=== PATIENT | female | born 2000 | race Caucasian/White ===

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

== ENCOUNTER 2020-03-06 15:12 | Emergency (ER) | payer MEDICAID, SELFPAY ==
[2020-03-06 15:21] VITALS: BP 140/89; PULSE 101; RESP 19; TEMP 37.3; O2SAT 100; BMI 25.9
--- NOTE | 2020-03-06 15:54 | HMH.EDUTC ---
[facility] [place] Disposition Clinical Impression: Pharyngitis Qualifiers: Pharyngitis/tonsillitis etiology: unspecified etiology Qualified Code(s): J02.9 - Acute pharyngitis, unspecified Disposition: Home, Self-Care Condition on Discharge: Good Instructions: Sore Throat, DI for Pharyngitis/Tonsillopharyngitis -- Adult Additional Instructions: Drink plenty of fluids. Take tylenol or ibuprofen for pain or fever. Take the medications as directed. Follow up with your regular doctor. GO TO THE ER FOR ANY WORSENING SYMPTOMS Prescriptions: predniSONE [Deltasone 10mg tablet] 10 mg PO BID 3 Days #6 tab Transmission Status: Received by [facility] Azithromycin [Z-Naseem 250mg Tab*] 250 mg PO UD DOSE PK #6 tab Transmission Status: Received by [facility] Referrals: Michelle Nino PA [Primary Care Provider] - Forms: Work/School Release Time of Disposition: 15:55 Medical Decision Making - Medical Records Medical records reviewed: No: I reviewed the patient's medical records. - Bernardo Inquiry Pt receiving controlled substance: No Vital Signs: 03/06/20 15:21 03/06/20 15:59 Temperature 99.2 F 99.2 F Temperature Source Oral Pulse Rate 101 H Pulse Rate [Right Brachial] 101 H Respiratory Rate 19 19 Blood Pressure 140/89 Blood Pressure [Right Arm] 140/89 Blood Pressure Mean [Right Arm] 106 Blood Pressure Source [Right Arm] Automatic Cuff Blood Pressure Position [Right Arm] Sitting 02 Sat by Pulse Oximetry 100 Oxygen Delivery Method Room Air - Lab Data Lab results reviewed: Yes: I reviewed the patient's lab results. Lab Results 03/06/20 15:23: Strep Scn Rapid Clinic Negative Orders (Tests/Meds): ORDERS Category Date Time Status Covid-19 Nasal PCR Sendout Kale Stat Lab 03/06/20 15:48 Received Strep Screen Confirmation Stat Micro 03/06/20 15:23 Received [facility] [place] HPI - General Stated complaint: Sore throat, cough Time Seen by Provider: 03/06/20 15:30 Mode of Arrival: Ambulatory Source of Information: Patient Limitations: No Limitations Description of Symptoms (Recalled from Triage Doc. by RN): PATIENT C/O SORE THROAT AND COUGH SINCE FRIDAY HEENT Symptoms (Recalled from RN notes): Yes Resp Symptoms (Recalled from RN notes): Yes Skin Symptoms (Recalled from RN notes): No MS Symptoms (Recalled from RN notes): No Functional Status (Recalled from RN notes): WNL - History of Present Illness Provider Complaint: She c/o 3 days of sore throat. She denies any fever or chills. She denies any COVID-19 exposure that she knows of. - Related Data Previous Rx's Medication Instructions Recorded Azithromycin [Z-Naseem 250mg Tab*] 250 mg PO UD DOSE PK #6 tab 03/06/20 predniSONE [Deltasone 10mg tablet] 10 mg PO BID 3 Days #6 tab 03/06/20 Allergies Allergy/AdvReac Type Severity Reaction Status Date / Time No Known Allergies Allergy Verified 08/13/17 12:00 - Worker's Comp Is this a Worker's Comp case?: No [facility] History - Hepatitis A Screen Drug use history?: No High risk sexual behaviors?: No History of sexually transmitted infection?: No Currently employed?: No Childcare worker?: No Do you have indoor plumbing?: Yes Do you have electricity?: Yes Attestation statement:: This patient has been screened for Hepatitis A risk factors. I have reviewed the patient's past medical history: Yes Medical History: Denies:: Diabetes Mellitus Type 1, Diabetes Mellitus Type 2, Hypertension Other Surgeries: Yes: No Previous Surgery - Social History Smoking Status: Never smoker Alcohol Intake: never Occupational Status: other ROS Obtained: Yes All systems reviewed & no additional complaints - Constitutional Constitutional: Denies chills, Denies fever(s) - Eyes Eyes: Denies eye discharge - ENT Ears, Nose, Mouth, and Throat: Reports as per HPI - Cardiovascular Cardiovascular: Denies chest pain - Respiratory Respiratory: No chest congestion, No cough Physica
[2020-03-06 15:58] LABS: UTC Strep Screen (Rapid) Negative (Negative)
[2020-03-06 15:59] VITALS: BP 140/89; PULSE 101; RESP 19; TEMP 37.3; O2SAT 100
[2020-03-08 14:52] LABS: Covid-19 Nasal PCR Sendout Lex NOT DETECTED
== END 2020-03-06 16:02 | disposition home or self-care (01) ==
PROVIDERS: Emergency Provider Nurse Practitioner Family; PCP Physician Assistant
DX: J02.9 Acute pharyngitis, unspecified (principal); Z20.828 Contact with and (suspected) exposure to other viral communicable diseases
CPT/HCPCS: 87880; 99202; U0004

== ENCOUNTER → 2020-03-27 13:06 | Outpatient (POV) | payer MEDICAID, SELFPAY | PROVIDERS: Visit Provider Nurse Practitioner Family | DX: Z00.00 Encounter for general adult medical examination without abnormal findings (principal) ==

== ENCOUNTER → 2020-03-30 10:30 | Outpatient (CLI) | payer MEDICAID, SELFPAY ==
--- NOTE | 2020-03-30 10:34 | CT_ITS ---
PROCEDURE: CT ABDOMEN PELVIS W CON CLINICAL INDICATION: RECTAL BLEEDING, GENERALIZED ABD PAIN llq tenderness,rectal bleeding x 3 months COMPARISON: No exams were available for comparison TECHNIQUE: IV Contrast: 75ML OPTIRAY 350 Oral Contrast 450ml Redicat Axial images obtained with sagittal and coronal reformats. All CT scans at the facility use one or more dose reduction, viz: automated exposure control, ma/kV adjustment per patient size (including targeted exams where dose is matched to indication, i.e. head), or iterative reconstruction technique. FINDINGS: LOWER THORAX: There is a partially calcified nodule in the right lower lobe medially which may represent a granuloma. ABDOMEN & PELVIS: The liver, spleen, adrenal glands, pancreas, and kidneys have an unremarkable appearance. No intestinal obstruction or free air. No evidence of appendicitis. There is a right-sided pelvic mass which contains fat, soft tissue elements, and central calcification consistent with a ovarian dermoid cyst/mature cystic ovarian teratoma. This measures 8.8 cm AP and 4.3 cm transverse. The lesion is mostly fatty with soft tissue elements and a central calcific element. This is causing some shift of the uterus toward the left. No acute bony findings. IMPRESSION: 1. 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 2. Otherwise negative abdomen pelvis Dictated by: Koko Myers MD 03/31/2020 09:48 Koko Myers MD in OV 03/31/2020 09:48
== END ==
PROVIDERS: PCP Physician Assistant; Visit Provider Nurse Practitioner Family
DX: K62.5 Hemorrhage of anus and rectum (principal); R10.84 Generalized abdominal pain
CPT/HCPCS: 74177; Q9967

== ENCOUNTER → 2020-03-31 09:19 | Outpatient (CLI) | payer MEDICAID, SELFPAY ==
[2020-03-31 09:47] LABS: Basophils % 0.3 % (0.1-2.0); Eosinophils % 0.2 % (0.1-12.0); Hematocrit 39.5 % (37.0-47.0); Hemoglobin 13.7 g/dL (12.2-16.2); Lymphocytes # 1.3 K/mm3 (0.7-4.5); Lymphocytes % 12.5 % (10-50); Mean Corpuscular HGB Conc 34.7 g/dL (31.8-35.4); Mean Corpuscular Hemoglobin 32.3 pg (27.0-31.2); Mean Corpuscular Volume 93.2 fl (81-99); Mean Platelet Volume 7.9 fl (7.4-10.4); Monocytes # 0.5 K/mm3 (0.1-1.0); Monocytes % 4.9 % (1.7-9.3); Neutrophils # 8.8 K/mm3 (1.8-7.8); Neutrophils % 82.1 % (37.0-80.0); Platelet Count 224 K/mm3 (142-424); Red Blood Count 4.24 M/mm3 (4.20-5.40); Red Cell Distribution Width 12.9 % (11.5-17.5); White Blood Count 10.7 K/mm3 (4.5-13.0)
[2020-03-31 11:14] LABS: Chloride 104 mmol/L (98-107); Sodium 139 mmol/L (136-145)
[2020-03-31 11:15] LABS: Potassium 4.3 mmoL/L (3.5-5.1)
[2020-03-31 11:17] LABS: Alanine Aminotransferase 18 U/L (12-78); Albumin Level 4.5 g/dl (3.5-5.0); Alkaline Phosphatase 93 U/L (38-126); Anion Gap 16.3 mEq/L (5-15); Aspartate Amino Transferase 26 U/L (14-36); Bilirubin,Total 1.7 mg/dl (0.2-1.3); Blood Urea Nitrogen 5 mg/dl (7-17); Calcium 9.7 mg/dl (8.4-10.2); Carbon Dioxide 23 mmol/L (22.0-30.0); Estimated Glomerular Filt Rate 127 ml/min (>60); GFR (African American) 154 ML/MIN (>60); Glucose 149 mg/dl (74-100); Iron 108 ug/dL (37-170)
[2020-03-31 11:18] LABS: Albumin/Globulin Ratio 1.6 (1.1-1.8); Globulin 2.9 g/dL (1.3-3.2); Total Protein,Serum 7.4 g/dl (6.3-8.2)
[2020-03-31 11:24] LABS: C-Reactive Protein 1.1 mg/L (0-4)
[2020-03-31 11:27] LABS: Total Iron Binding Capacity 396 ug/dL (265-497)
[2020-03-31 11:55] LABS: Ferritin 23.1 ng/ml (6.24-137)
[2020-04-04 13:30] LABS: Saccharomyces cerevisiae, IgA 22.4 Units (0.0-24.9); Saccharomyces cerevisiae, IgG 26.5 Units (0.0-24.9)
== END ==
PROVIDERS: Visit Provider Nurse Practitioner Family
DX: R10.84 Generalized abdominal pain (principal); K62.5 Hemorrhage of anus and rectum
CPT/HCPCS: 36415; 80053; 82728; 83540; 83550; 85025; 86140; 86256; 86671

== ENCOUNTER → 2020-06-26 09:58 | Outpatient (POV) | payer MEDICAID, SELFPAY | PROVIDERS: Visit Provider Nurse Practitioner Family | DX: Z00.00 Encounter for general adult medical examination without abnormal findings (principal) ==

== ENCOUNTER 2020-07-14 22:43 | Emergency (ER) | payer BC, OTHER, SELFPAY ==
[2020-07-14 22:44] VITALS: BP 174/85; PULSE 111; RESP 16; TEMP 36.7; O2SAT 98; BMI 25.0
--- NOTE | 2020-07-14 23:11 | HMH.EDGENADL ---
[place] Disposition Clinical Impression: First trimester bleeding Disposition: Home, Self-Care Condition on Discharge: Good Referrals: Michelle Nino PA [Primary Care Provider] - - Critical Care Critical Care Time: No Attestation: On 07/14/20, the high probability of a clinically significant, sudden or life threatening deterioration of the following system(s) required my full and direct attention, intervention and personal management. The time I documented below is in addition to time spent performing reported procedures but includes the following listed in this critical care notation. Medical Decision Making - Medical Records Medical records reviewed: Yes: I reviewed the patient's medical records. - Bernardo Inquiry Pt receiving controlled substance: No Vital Signs: 07/14/20 22:44 Temperature 98.1 F Temperature Source Oral Pulse Rate [Left Radial] 111 H Respiratory Rate 16 Blood Pressure [Right Arm] 174/85 H Blood Pressure Mean [Right Arm] 114 Blood Pressure Source [Right Arm] Automatic Cuff Blood Pressure Position [Right Arm] Sitting 02 Sat by Pulse Oximetry 98 Oxygen Delivery Method Room Air - Lab Data Lab Results 07/14/20 23:10: WBC 9.9, RBC 4.29, Hgb 13.3, Hct 40.1, MCV 93.5, MCH 31.1, MCHC 33.3, RDW 12.8, Plt Count 227, MPV 9.4, Neut % (Auto) 64.3, Lymph % (Auto) 26.9, [place] % (Auto) 6.5, Eos % (Auto) 1.8, Baso % (Auto) 0.5, Neut # (Auto) 6.4, Lymph # (Auto) 2.7, [place] # (Auto) 0.6, Eos # (Auto) 0.2, Baso # (Auto) 0.0 07/14/20 23:10: Sodium 138, Potassium 3.8, Chloride 105, Carbon Dioxide 24, Anion Gap 12.8, BUN 6 L, Creatinine 0.60, Estimated Creat Clear 150, Estimated GFR 126, Est GFR ( Amer) 153, Glucose 115 H, Calcium 9.4 07/14/20 23:10: Blood Type A Positive, Antibody Screen Negative Result diagrams: 07/14/20 23:10 07/14/20 23:10 Orders (Tests/Meds): ORDERS Category Date Time Status Basic Metabolic Panel Stat Lab 07/14/20 23:10 Results HCG,Quantitative Stat Lab 07/14/20 23:10 Results Medical Decision Narrative: 20-year-old female presented with first trimester bleeding. She is in no acute distress nontoxic-appearing comfortable in the room. No concern for severe bleeding at this time. Bedside ultrasound was performed and crown-rump length was 6 weeks and 5 days and heart rate was visualized within the gestational sac.sac. Laboratory evaluation was ordered and plan to reassess. No high risk features for ectopic in the setting of visualized IUP. Follow-up at 12:15 AM. hematocrit normal electrolytes normal and she is B+. Stable hemodynamically in the emergency department plan to discharge with return precautions recommendation to call her [facility] next week to schedule their appointment. General Adult HPI - General Chief complaint: Vaginal Bleeding Stated complaint: vaginal bleeding 7 weeks pregant Time Seen by Provider: 07/14/20 22:43 Mode of Arrival: Ambulatory Limitations: No Limitations Description of Symptoms (Recalled from ER Triage Doc. by RN): pt stated she believes she is 7 weeks based on her last period and a positive test. pt reports scant vaginal bleeding that started about an hour ago. pt denies any abd. pain or cramping. - History of Present Illness HPI narrative: 20-year-old female primigravida presents with vaginal spotting that has now resolved. She has had no clotting or tissues that were passed. No dysuria or hematuria. No abdominal pain or cramping. No fever chills or back pain. No history of bleeding disorder. The spotting occurred today and she has not had any ultrasound this her scheduled appointment is in August. Onset (ago): hour(s) Radiation: non-radiation Consistency: now resolved Relieving factors: none Associated symptoms: negative: chest pain, cough, diaphoresis, fever/chills, headaches - Related Data Previous Rx's Medication Instructions Recorded Azithromycin [Z-Naseem 250mg Tab*] 25
[2020-07-14 23:20] LABS: Basophils % 0.5 % (0.1-2.0); Eosinophils # 0.2 K/mm3 (0.0-0.4); Eosinophils % 1.8 % (0.1-12.0); Hematocrit 40.1 % (37.0-47.0); Hemoglobin 13.3 g/dL (12.2-16.2); Lymphocytes # 2.7 K/mm3 (0.7-4.5); Lymphocytes % 26.9 % (10-50); Mean Corpuscular HGB Conc 33.3 g/dL (31.8-35.4); Mean Corpuscular Hemoglobin 31.1 pg (27.0-31.2); Mean Corpuscular Volume 93.5 fl (81-99); Mean Platelet Volume 9.4 fl (7.4-10.4); Monocytes # 0.6 K/mm3 (0.1-1.0); Monocytes % 6.5 % (1.7-9.3); Neutrophils # 6.4 K/mm3 (1.8-7.8); Neutrophils % 64.3 % (37.0-80.0); Platelet Count 227 K/mm3 (142-424); Red Blood Count 4.29 M/mm3 (4.20-5.40); Red Cell Distribution Width 12.8 % (11.5-17.5); White Blood Count 9.9 K/mm3 (4.8-10.8)
[2020-07-14 23:28] LABS: Chloride 105 mmol/L (98-107); Sodium 138 mmol/L (136-145)
[2020-07-14 23:29] LABS: Potassium 3.8 mmoL/L (3.5-5.1)
[2020-07-14 23:31] LABS: Blood Urea Nitrogen 6 mg/dl (7-17); Creatinine Clearance Estimated 150 mL/min (50-200); Estimated Glomerular Filt Rate 126 ml/min (>60); GFR (African American) 153 ML/MIN (>60)
[2020-07-14 23:32] LABS: Anion Gap 12.8 mEq/L (5-15); Calcium 9.4 mg/dl (8.4-10.2); Carbon Dioxide 24 mmol/L (22.0-30.0); Glucose 115 mg/dl (74-100)
[2020-07-15 00:18] VITALS: BP 112/73; PULSE 79; RESP 16; TEMP 36.6; O2SAT 98
[2020-07-15 00:26] LABS: HCG,Quantitative 54338 mIU/ml (0-5.42)
== END 2020-07-15 00:24 | disposition home or self-care (01) ==
PROVIDERS: Emergency Provider Emergency Medicine; PCP Physician Assistant
DX: O20.9 Hemorrhage in early pregnancy, unspecified (principal); Z3A.01 Less than 8 weeks gestation of pregnancy
CPT/HCPCS: 36415; 80048; 84702; 85025; 86850; 99282

== ENCOUNTER → 2021-11-05 13:52 | Outpatient (CLI) | payer OTHER, SELFPAY ==
[2021-11-05 14:06] LABS: Adenovirus F 40/41, stool Not Detected (NotDetected); Astrovirus Not Detected (NotDetected); Campylobacter Not Detected (NotDetected); Clostridium Difficile A/B, PCR Not Detected (NotDetected); Cryptosporidium Not Detected (NotDetected); Cyclospora Cayetanesis Not Detected (NotDetected); Entamoeba histolytica Not Detected (NotDetected); Enteroaggregative E coli Not Detected (NotDetected); Enteropathogenic E coli Not Detected (NotDetected); Enterotoxigenic E coli Not Detected (NotDetected); Giardia lamblia Not Detected (NotDetected); Norovirus Not Detected (NotDetected); Plesimonas Shigalloides, PCR Not Detected (NotDetected); Rotavirus A Not Detected (NotDetected); Salmonella, PCR Not Detected (NotDetected); Sapovirus Not Detected (NotDetected); Shiga-like toxin E coli Not Detected (NotDetected); Shigella Enterovasive E coli Not Detected (NotDetected); Vibrio Cholerae Not Detected (NotDetected); Vibrio, PCR Not Detected (NotDetected); Yersinia Entercolitica, PCR Not Detected (NotDetected)
== END ==
PROVIDERS: Visit Provider Nurse Practitioner Family
DX: R19.7 Diarrhea, unspecified (principal)
CPT/HCPCS: 87507

== ENCOUNTER 2022-01-03 06:44 | Emergency (ER) | payer BC, SELFPAY ==
[2022-01-03] VITALS (7 sets, daily range): BP systolic 108–142; BP diastolic 57–90; PULSE 90–124; RESP 16–18; TEMP 37.1–39.5; O2SAT 96–100; BMI 32.3
--- NOTE | 2022-01-03 07:08 | CT_ITS ---
FINAL REPORT CLINICAL HISTORY: RLQ PAIN COMPARISON: March 30, 2020 FINDINGS: CT OF THE ABDOMEN AND PELVIS WITH CONTRAST Axial CT images of the abdomen and pelvis were obtained after the administration of IV contrast. Coronal reformatted images were also obtained and reviewed.This study was performed with techniques to keep radiation doses as low as reasonably achievable (ALARA). Individualized dose reduction techniques using automated exposure control or adjustment of mA and/or kV according to the patient's size were employed. Abdomen: The there is a stable nodule in the medial right lung base with central calcification consistent with granuloma.. The heart is normal in size. The liver has an unremarkable appearance, without evidence of mass or biliary ductal dilatation. The spleen is unremarkable. No adrenal mass is present. The pancreas has an unremarkable appearance. There is a less than 3 mm nonobstructing left renal stone. The aorta is normal in caliber. There is no free fluid or adenopathy. There is wall thickening of the ascending colon with adjacent fat stranding and several small adjacent lymph nodes with an appearance consistent with ascending colitis. A small umbilical hernia is noted containing fat. Pelvis: The appendix normal The urinary bladder is unremarkable. There is presumed interval resolution of the right ovarian dermoid cyst, the mass is no longer visualized. There is a 3.1 cm left ovarian cyst. There is a small amount of pelvic free fluid, which may be physiologic or reactive. There are bilateral L5 pars defects noted. IMPRESSION: Findings in the colon consistent with ascending colitis. A 3.1 cm left ovarian cyst. Presumed interval resolution of right ovarian dermoid cyst. Reviewed, Interpreted and Dictated by Basil Amos III, MD Transcribed by Ethel Bowman Authenticated and [facility]
[2022-01-03 07:16] LABS: Coronavirus 19, PCR Not Detected (NotDetected); Influenza A, PCR Not Detected (NotDetected); Influenza B, PCR Not Detected (NotDetected)
[2022-01-03 07:22] LABS: Chloride 104 mmol/L (98-107); Potassium 3.4 mmoL/L (3.5-5.1); Sodium 136 mmol/L (136-145)
--- NOTE | 2022-01-03 07:23 | PC.NURSE ---
pt ambulatory from restroom without complications back to ED room 9
[2022-01-03 07:24] LABS: Amylase 50 U/L (30-110); Basophils # 0.2 K/mm3 (0-0.2); Basophils % 1.7 % (0.1-2.0); Blood Urea Nitrogen 2 mg/dl (7-17); Creatinine Clearance Estimated 160 mL/min (50-200); Eosinophils % 0.1 % (0.1-12.0); Estimated Glomerular Filt Rate 105 ml/min (>60); GFR (African American) 127 ML/MIN (>60); Hematocrit 42.7 % (37.0-47.0); Hemoglobin 13.8 g/dL (12.2-16.2); Lymphocytes # 0.5 K/mm3 (0.7-4.5); Lymphocytes % 4.5 % (10-50); Mean Corpuscular HGB Conc 32.4 g/dL (31.8-35.4); Mean Corpuscular Hemoglobin 29.4 pg (27.0-31.2); Mean Corpuscular Volume 90.9 fl (81-99); Mean Platelet Volume 8.9 fl (7.4-10.4); Monocytes # 0.6 K/mm3 (0.1-1.0); Neutrophils # 9.2 K/mm3 (1.8-7.8); Neutrophils % 87.6 % (37.0-80.0); Platelet Count 215 K/mm3 (142-424); Red Cell Distribution Width 14.1 % (11.5-17.5); White Blood Count 10.5 K/mm3 (4.8-10.8)
[2022-01-03 07:25] LABS: Alanine Aminotransferase 15 U/L (12-78); Albumin Level 4.1 g/dl (3.5-5.0); Albumin/Globulin Ratio 1.3 (1.1-1.8); Alkaline Phosphatase 103 U/L (38-126); Anion Gap 12.4 mEq/L (5-15); Aspartate Amino Transferase 27 U/L (14-36); Calcium 8.6 mg/dl (8.4-10.2); Carbon Dioxide 23 mmol/L (22.0-30.0); Globulin 3.2 g/dL (1.3-3.2); Glucose 131 mg/dl (74-100); Lipase 36 U/L (23-300); Total Protein,Serum 7.3 g/dl (6.3-8.2)
[2022-01-03 07:26] LABS: MANUAL DIFFERENTIAL MANUAL DIFFERENTIAL (MANUAL DIFF)
[2022-01-03 07:31] LABS: C-Reactive Protein 105.9 mg/L (0-4)
[2022-01-03 07:34] LABS: Microscopic, Urine URINE MICROSCOPIC (MICROSCOPIC)
[2022-01-03 07:36] LABS: Appearance,Urine CLOUDY (Clear); Blood, Urine 1+ (Negative); Color,Urine DK YELLOW (Yellow); Glucose,Urine (UA) Negative (Negative); Ketones,Urine Negative (Negative); Leukocyte Esterase,Urine 1+ (Negative); Nitrate,Urine Negative (Negative); Protein,Urine 2+ (Negative); Specific Gravity, Urine 1.025 (1.005-1.030); Urobilinogen,Urine 0.2 EU/dl (0.2)
[2022-01-03 07:38] LABS: Urine Pregnancy, HCG Qual. Negative (Negative)
[2022-01-03 07:41] LABS: Bilirubin,Urine Negative (Negative)
--- NOTE | 2022-01-03 07:45 | PC.NURSE ---
pt states feeling improved after pain meds and zofran given
[2022-01-03 07:54] LABS: Eosinophils % 1 % (0-3); Lymphocytes % 5 % (10-50); Monocytes % 7 % (2-9); Neutrophils % 87 % (42-76); Platelet Estimate Normal; RBC Morphology Normal; Total Cells Counted 100
--- NOTE | 2022-01-03 07:59 | HMH.EDNVD ---
ED Disposition Condition on Discharge: Good - Critical Care Critical Care Time: No <Deepak Payan - Last Filed: 01/03/22 08:30> Condition on Discharge: Good - Critical Care Critical Care Time: No <TonaRajinder - Last Filed: 01/03/22 09:19> Clinical Impression: Pyelonephritis, Colitis Disposition: Home, Self-Care Instructions: DI for Urinary Tract Infection (UTI), DI for Colitis Additional Instructions: follow up pcp next week, return here for worse Prescriptions: Dicyclomine HCl [Bentyl 10mg capsule] 10 mg PO QID PRN #15 cap PRN Reason: Cramping Transmission Status: Pending to [facility] metroNIDAZOLE [metroNIDAZOLE 500mg Tablet] 500 mg PO TID #30 tab Transmission Status: Pending to [facility] Cefdinir [Omnicef 300mg Capsule] 300 mg PO BID #20 cap Transmission Status: Pending to [facility] Ondansetron [Zofran 4mg ODT] 4 mg PO TIDP PRN #15 tab PRN Reason: Nausea And Vomiting Transmission Status: Pending to [facility] Referrals: Michelle Nino PA [Primary Care Provider] - Attestation: On 01/03/22, the high probability of a clinically significant, sudden or life threatening deterioration of the following system(s) required my full and direct attention, intervention and personal management. The time I documented below is in addition to time spent performing reported procedures but includes the following listed in this critical care notation. Medical Decision Making - Medical Records Medical records reviewed: Yes: I reviewed the patient's medical records. - Bernardo Sharpe Pt receiving controlled substance: No - Lab Data Lab results reviewed: Yes: I reviewed the patient's lab results. Result diagrams: 01/03/22 06:55 01/03/22 06:55 <Deepak Payan - Last Filed: 01/03/22 08:30> - Medical Records Medical records reviewed: Yes: I reviewed the patient's medical records. - Bernardo Sharpe Pt receiving controlled substance: No - Lab Data Result diagrams: 01/03/22 06:55 01/03/22 06:55 - Reevaluation(s) Time: 09:15 (reeval, appears well, vss, discussed resulkts, ok with plan to rx and f/u prn) <Rajinder Carbone - Last Filed: 01/03/22 09:19> Vital Signs: 01/03/22 06:46 01/03/22 07:30 01/03/22 08:00 Temperature 103.1 F H Temperature Source Oral Pulse Rate 110 H 101 H Pulse Rate [Left] 124 H Respiratory Rate 16 Blood Pressure 133/82 108/71 L Blood Pressure [Right Arm] 142/90 H Blood Pressure Mean 93 85 Blood Pressure Mean [Right Arm] 107 Blood Pressure Position 02 Sat by Pulse Oximetry 97 96 97 Oxygen Delivery Method Room Air Room Air 01/03/22 08:11 01/03/22 08:30 Temperature 98.7 F Temperature Source Oral Pulse Rate 98 H 100 H Pulse Rate [Left] Respiratory Rate Blood Pressure 108/57 L 109/73 L Blood Pressure [Right Arm] Blood Pressure Mean 85 Blood Pressure Mean [Right Arm] Blood Pressure Position Sitting 02 Sat by Pulse Oximetry 100 Oxygen Delivery Method Room Air - Lab Data Lab Results 01/03/22 06:55: WBC 10.5, RBC 4.70, Hgb 13.8, Hct 42.7, MCV 90.9, MCH 29.4, MCHC 32.4, RDW 14.1, Plt Count 215, MPV 8.9, Neut % (Auto) 87.6 H, Lymph % (Auto) 4.5 L, [place] % (Auto) 6.0, Eos % (Auto) 0.1, Baso % (Auto) 1.7, Neut # (Auto) 9.2 H, Lymph # (Auto) 0.5 L, [place] # (Auto) 0.6, Eos # (Auto) 0.0, Baso # (Auto) 0.2, Total Counted 100, Neutrophils % (Manual) 87 H, Lymphocytes % (Manual) 5 L, Monocytes % (Manual) 7, Eosinophils % (Manual) 1, Platelet Estimate Normal, RBC Morphology Normal, ESR 18 01/03/22 06:55: Sodium 136, Potassium 3.4 L, Chloride 104, Carbon Dioxide 23, Anion Gap 12.4, BUN 2 L, Creatinine 0.70, Estimated Creat Clear 160, Estimated GFR 105, Est GFR ( Amer) 127, Glucose 131 H, Calcium 8.6, Total Bilirubin 1.0, AST 27, ALT 15, Alkaline Phosphatase 103, C-Reactive Protein 105.9 H, Total Protein 7.3, Albumin 4.1, Globulin 3.2, Albumin/Globulin Ratio 1.3, Amylase 5
[2022-01-03 08:02] LABS: Erythrocyte Sedimentation Rate 18 mm/hr (0-20)
[2022-01-03 08:02] LABS: Bacteria,Urine 2+ /lpf; WBC,Urine 20-50 #/hpf (0-3)
[2022-01-03 08:03] LABS: Mucus,Urine Trace /lpf
[2022-01-03 08:04] LABS: Procalcitonin 0.207 ng/mL (0.0-2.0)
--- NOTE | 2022-01-03 08:30 | PC.NURSE ---
pt and family updated on plan of care. pt offers no c/o at present
--- NOTE | 2022-01-03 09:07 | PC.NURSE ---
pt and family updated on plan of care
--- NOTE | 2022-01-03 09:13 | PC.NURSE ---
ER MD at speaking with patient regarding update on POC
== END 2022-01-03 09:54 | disposition home or self-care (01) ==
PROVIDERS: Emergency Provider Emergency Medicine; PCP Physician Assistant
DX: R50.9 Fever, unspecified (principal); R10.84 Generalized abdominal pain; R11.2 Nausea with vomiting, unspecified; R19.7 Diarrhea, unspecified
CPT/HCPCS: 74177; 80053; 81001; 81025; 82150; 83605; 83690; 84145; 85007; 85025; 85651; 86140; 87040; 87086; 96365; 96366; 96375; 99284; C9803; J2405; Q9967; U0003; U0005

== ENCOUNTER → 2022-06-20 10:18 | Outpatient (CLI) | payer BC, SELFPAY | PROVIDERS: PCP Family Medicine; Visit Provider Family Medicine | DX: G47.30 Sleep apnea, unspecified (principal); R06.83 Snoring; R51.9 Headache, unspecified | CPT/HCPCS: G0399 ==

== ENCOUNTER 2022-06-25 14:08 | Emergency (ER) | payer BC, SELFPAY ==
[2022-06-25 14:08] VITALS: BP 143/96; PULSE 93; RESP 16; TEMP 36.7; O2SAT 98; BMI 30.1
[2022-06-25 14:30] VITALS: BP 131/87; PULSE 81; O2SAT 100
[2022-06-25 14:35] LABS: Microscopic, Urine URINE MICROSCOPIC (MICROSCOPIC)
[2022-06-25 14:43] LABS: Appearance,Urine CLOUDY (Clear); Bilirubin,Urine Negative (Negative); Blood, Urine 3+ (Negative); Color,Urine ORANGE (Yellow); Glucose,Urine (UA) Negative (Negative); Ketones,Urine Negative (Negative); Leukocyte Esterase,Urine 1+ (Negative); Nitrate,Urine Negative (Negative); Protein,Urine TRACE (Negative); Urobilinogen,Urine 0.2 EU/dl (0.2)
[2022-06-25 14:45] LABS: Urine Pregnancy, HCG Qual. Positive (Negative)
--- NOTE | 2022-06-25 15:03 | US_ITS ---
FINAL REPORT CLINICAL HISTORY: r/o ectopic, early , vaginal bleeding, lmp 05/27/22 FINDINGS: Transvaginal sonographic images of the pelvis were obtained. The uterus measures 8.8 x 5.6 x 3.9 cm. The endometrium measures 5 mm, which is within normal limits. There is a presumed small calcification in the endometrium. No uterine mass is identified. No intrauterine is identified. The left ovary measures up to 3.1 cm and contains small follicles. The right ovary is not visualized and reported surgically absent. IMPRESSION: No evidence of intrauterine . Findings may be due to failed . Ectopic cannot entirely be excluded. There are no specific findings of ectopic . Reviewed, Interpreted and Dictated by Basil Amos III, MD Transcribed by Maninder Wiley Authenticated and [facility]
[2022-06-25 15:10] LABS: RBC,Urine TNTC #/hpf (0-3)
--- NOTE | 2022-06-25 15:13 | HMH.EDGENADL ---
Discharge Plan Disposition Patient Disposition: Home, Self-Care Condition: Good Prescriptions Prescriptions: No Action prednisone 10 MG tablet 10 mg PO BID 3 Days Qty: 6 0RF azithromycin 250 MG tablet 250 mg PO UD DOSE PK Qty: 6 0RF Rx Instructions: Take two (2) tablets today, then one (1) tablet days #2 thru #5 ondansetron 4 MG tablet,disintegrating 4 mg PO TIDP PRN (Reason: Nausea And Vomiting) Qty: 15 0RF dicyclomine 10 MG capsule 10 mg PO QID PRN (Reason: Cramping) Qty: 15 0RF metronidazole 500 MG tablet 500 mg PO TID Qty: 30 0RF cefdinir 300 MG capsule 300 mg PO BID Qty: 20 0RF phenazopyridine [Pyridium] 200 mg tablet 200 mg PO Q8H 2 Days Qty: 6 0RF sulfamethoxazole-trimethoprim [Bactrim DS] 800-160 mg Tablet 1 tab PO BID Qty: 14 0RF ondansetron 4 mg Tablet,Disintegrating 4 mg PO Q8H PRN (Reason: Nausea) Qty: 12 0RF Referrals Follow up/Referrals: Michelle Nino PA [Primary Care Provider] - See instructions Activity Restrictions/Add. Instructions Additional Instructions/Restrictions: Return to the lab at [facility] in 2 days to have quantitative beta-hCG level drawn. Follow-up results with your CODER OPERATOR. Return to the emergency department if any severe pelvic pain or heavy vaginal bleeding. Urine culture has been performed, results generally take 2 to 3 days. Follow-up the results of this test with your primary care provider within 2 to 3 days. Clinical Impressions Clinical Impression: Bleeding in early Instructions Patient Instructions: DI for Threatened Discharge ED Provider: Wallace Connor General Adult HPI General Chief complaint: Vaginal Bleeding Stated complaint: 4 weeks antepartum, bleeding Time Seen by Provider: 06/25/22 14:33 Mode of Arrival: Ambulatory Source of Information: Patient and Spouse Limitations: No Limitations Description of Symptoms (Recalled from ER Triage Doc. by RN): Pt reports was advised by her [employer] intern to come and be evaluated to make sure does not have an ectopic because she only has 1 ovary. Pt reports had a positive home today. Pt reports LMP May 27. pt denies abd/pelvic pain or cramping. Pt reports did start having vaginal spotting on saturday of last week, pt reports is basically not there today. History of Present Illness HPI narrative: Patient states she is and has 4-day history of some vaginal bleeding. Bleeding has been light, spotting. She denies any pain. She is 2, para 1. She has had her right ovary removed because of a large cyst 1 year ago. She contacted her CODER OPERATOR who advised her to come in to have an ectopic ruled out. No prior history of miscarriage or ectopic . Last menstrual period May 27. Related Data Previous Rx's Medication Instructions Recorded azithromycin 250 mg tablet 250 mg PO UD DOSE PK #6 tabs 03/06/20 prednisone 10 mg tablet 10 mg PO BID 3 days #6 tabs 03/06/20 cefdinir 300 mg capsule 300 mg PO BID #20 caps 01/03/22 dicyclomine 10 mg capsule 10 mg PO QID PRN Cramping #15 caps 01/03/22 metronidazole 500 mg tablet 500 mg PO TID #30 tabs 01/03/22 ondansetron 4 mg disintegrating 4 mg PO TIDP PRN Nausea And 01/03/22 tablet Vomiting #15 tabs ondansetron 4 mg disintegrating 4 mg PO Q8H PRN Nausea #12 tabs 06/16/22 tablet phenazopyridine 200 mg tablet 200 mg PO Q8H 2 days #6 tabs 06/16/22 (Pyridium) sulfamethoxazole 800 1 tab PO BID #14 tabs 06/16/22 mg-trimethoprim 160 mg tablet (Bactrim DS) Allergies Allergy/AdvReac Type Severity Reaction Status Date / Time No Known Allergies Allergy Verified 08/13/17 12:00 [facility] Disclaimer: The information contained in this section may have been updated after the patient was seen, as this information can be updated by other users. Social History Smoking Status: Never smoker alcohol intake: never current occupational st
[2022-06-25 15:27] LABS: Basophils # 0.1 K/mm3 (0-0.2); Basophils % 0.9 % (0.1-2.0); Eosinophils # 0.1 K/mm3 (0.0-0.4); Eosinophils % 1.3 % (0.1-12.0); Hematocrit 40.5 % (37.0-47.0); Lymphocytes # 1.7 K/mm3 (0.7-4.5); Lymphocytes % 28.8 % (10-50); Mean Corpuscular HGB Conc 32.2 g/dL (31.8-35.4); Mean Corpuscular Hemoglobin 28.9 pg (27.0-31.2); Mean Corpuscular Volume 89.8 fl (81-99); Mean Platelet Volume 8.4 fl (7.4-10.4); Monocytes # 0.4 K/mm3 (0.1-1.0); Monocytes % 6.4 % (1.7-9.3); Neutrophils # 3.7 K/mm3 (1.8-7.8); Neutrophils % 62.6 % (37.0-80.0); Platelet Count 293 K/mm3 (142-424); Red Blood Count 4.51 M/mm3 (4.20-5.40); Red Cell Distribution Width 14.2 % (11.5-17.5); White Blood Count 5.9 K/mm3 (4.8-10.8)
[2022-06-25 15:47] LABS: HCG,Quantitative 25 mIU/ml (0-5.42)
[2022-06-25 16:43] VITALS: BP 125/78; PULSE 87; RESP 20; TEMP 36.9; O2SAT 97
== END 2022-06-25 16:44 | disposition home or self-care (01) ==
PROVIDERS: Emergency Provider Emergency Medicine; PCP Physician Assistant
DX: O20.9 Hemorrhage in early pregnancy, unspecified (principal); Z3A.01 Less than 8 weeks gestation of pregnancy; Z90.721 Acquired absence of ovaries, unilateral
CPT/HCPCS: 76830; 81001; 81025; 84702; 85025; 87086; 99284

== ENCOUNTER → 2022-06-27 14:40 | Outpatient (CLI) | payer BC, SELFPAY ==
[2022-06-27 16:08] LABS: Alanine Aminotransferase 13 U/L (12-78); Albumin Level 4.7 g/dl (3.5-5.0); Albumin/Globulin Ratio 1.6 (1.1-1.8); Alkaline Phosphatase 132 U/L (38-126); Anion Gap 15.2 mEq/L (5-15); Aspartate Amino Transferase 24 U/L (14-36); Bilirubin,Total 0.6 mg/dl (0.2-1.3); Blood Urea Nitrogen 5 mg/dl (7-17); Calcium 9.8 mg/dl (8.4-10.2); Carbon Dioxide 24 mmol/L (22.0-30.0); Chloride 106 mmol/L (98-107); Estimated Glomerular Filt Rate 89 ml/min (>60); GFR (African American) 108 ML/MIN (>60); Globulin 2.9 g/dL (1.3-3.2); Glucose 95 mg/dl (74-100); Potassium 4.2 mmoL/L (3.5-5.1); Sodium 141 mmol/L (136-145); Total Protein,Serum 7.6 g/dl (6.3-8.2)
[2022-06-27 16:13] LABS: HCG,Quantitative 62 mIU/ml (0-5.42)
[2022-06-27 17:01] LABS: Iron 48 ug/dL (37-170)
[2022-06-27 17:55] LABS: Thyroid Stimulating Hormone 2.06 uIU/mL (0.465-4.68)
== END ==
PROVIDERS: PCP Family Medicine; Visit Provider Emergency Medicine
DX: O26.851 Spotting complicating pregnancy, first trimester (principal); E61.1 Iron deficiency; R40.0 Somnolence
CPT/HCPCS: 36415; 80053; 83540; 84443; 84702

== ENCOUNTER → 2022-07-01 14:56 | Outpatient (CLI) | payer BC, SELFPAY ==
[2022-07-01 17:07] LABS: HCG,Quantitative 5 mIU/ml (0-5.42)
[2022-07-03 10:20] LABS: Progesterone 0.4 ng/mL (.)
== END ==
PROVIDERS: PCP Family Medicine; Visit Provider Obstetrics & Gynecology
DX: Z32.01 Encounter for pregnancy test, result positive (principal)
CPT/HCPCS: 36415; 84144; 84702

== ENCOUNTER → 2022-08-08 11:55 | Outpatient (CLI) | payer BC, SELFPAY ==
[2022-08-08 16:25] LABS: Microscopic, Urine URINE MICROSCOPIC (MICROSCOPIC)
[2022-08-08 16:44] LABS: Appearance,Urine CLEAR (Clear); Bilirubin,Urine Negative (Negative); Blood, Urine TRACE-L (Negative); Color,Urine YELLOW (Yellow); Glucose,Urine (UA) Negative (Negative); Ketones,Urine Negative (Negative); Leukocyte Esterase,Urine 2+ (Negative); Nitrate,Urine Negative (Negative); Protein,Urine TRACE (Negative); Specific Gravity, Urine >= 1.030 (1.005-1.030); Urobilinogen,Urine 0.2 EU/dl (0.2)
[2022-08-08 17:23] LABS: Bacteria,Urine 1+ /lpf; RBC,Urine Occasional #/hpf (0-3)
== END ==
PROVIDERS: PCP Family Medicine; Visit Provider Nurse Practitioner
DX: N39.0 Urinary tract infection, site not specified (principal)
CPT/HCPCS: 81001; 87086

== ENCOUNTER → 2022-10-09 15:40 | Outpatient (CLI) | payer OTHER, SELFPAY | PROVIDERS: PCP Physician Assistant; Visit Provider Obstetrics & Gynecology | DX: R30.0 Dysuria (principal) | CPT/HCPCS: 87086 ==

== ENCOUNTER 2022-10-14 11:02 | Emergency (ER) | payer OTHER, SELFPAY ==
[2022-10-14 11:02] VITALS: BP 143/84; PULSE 83; RESP 17; TEMP 36.4; O2SAT 98; BMI 32.0
--- NOTE | 2022-10-14 11:35 | HMH.EDGENADL ---
Discharge Plan Disposition Chief Complaint: Upper Respiratory Infection Prescriptions Prescriptions: New cephalexin 500 mg capsule 500 mg PO QID 7 Days Qty: 28 0RF No Action amoxicillin 875 mg tablet 875 mg PO BID 7 Days Qty: 14 0RF pseudoephedrine HCl [Sudafed] 30 mg tablet 30 mg PO Q4-6H PRN (Reason: nasal congestion) Qty: 14 0RF Rx Instructions: DNExceed 4 doses/24h ofloxacin 0.3 % drops See Rx Instructions .ROUTE .COMPLEX Qty: 5 0RF Rx Instructions: put 2 drps into affected eye(s) every 2 h x 2 days, then 1 drp 4 times/day days 3-7 Referrals Follow up/Referrals: Michelle Nino PA [Primary Care Provider] - See instructions Clinical Impressions Clinical Impression: Dehydration during , Urinary tract infection affecting Discharge ED Provider: Aden Geiger General Adult HPI General Chief complaint: Upper Respiratory Infection Stated complaint: UTI-POSSIBLE DEHRYATION-12WEEKS PREG Time Seen by Provider: 10/14/22 11:41 Mode of Arrival: Ambulatory Source of Information: Patient Limitations: No Limitations Description of Symptoms (Recalled from ER Triage Doc. by RN): pt to ED 12 weeks with headache, nausea, cough, congestion and reports feeling run down . pt denies any abd. pain, vaginal bleeding, vomiting or diarrhea at this time. History of Present Illness HPI narrative: Patient is a 22-year-old G3, presents today with feeling lightheaded and profoundly weak. She states that she has had some significant nausea vomiting during this which resulted in another ED visit back in August requiring IV fluids. States she feels similar today. She has had a mild cough for the last week but that is not bothering her today. She also has had a mild headache but she took Tylenol prior to arrival today and states her headache is gone. Also has Zofran at home and states that her nausea is currently under control. So she is primarily just here for weakness and lightheadedness. States her mouth has been dry and extremities cool. No significant abdominal pain no loss of fluid no cramping no vaginal bleeding she does states she has some urinary frequency and carries frequent UTIs and may have a urinary tract infection today. Related Data Previous Rx's Medication Instructions Recorded amoxicillin 875 mg tablet 875 mg PO BID 7 days #14 tabs 07/19/22 pseudoephedrine HCl 30 mg tablet 30 mg PO Q4-6H PRN nasal 07/19/22 (Sudafed) congestion #14 tabs ofloxacin 0.3 % eye drops See Rx Instructions ophthalmic 09/03/22 (eye) .COMPLEX #5 mL cephalexin 500 mg capsule 500 mg PO QID 7 days #28 caps 10/14/22 Allergies Allergy/AdvReac Type Severity Reaction Status Date / Time butorphanol [From Stadol] Allergy shortness Verified 07/23/22 11:49 of breath PFSH [facility] Disclaimer: The information contained in this section may have been updated after the patient was seen, as this information can be updated by other users. Surgical History (Updated 07/19/22 @ 10:28 by Pricila Donnelly LPN) History of right oophorectomy Family History (Updated 07/19/22 @ 10:29 by Pricila Donnelly LPN) Grandmother Cancer Stroke Grandfather Cancer Stroke Father Hypertension Diabetes Social History (Updated 07/19/22 @ 10:30 by Pricila Donnelly LPN) Smoking Status: Never smoker alcohol intake: current substance use type: denies use current occupational status: employed Travel in the last 8 weeks: None household members: spouse, family and children housing: house ROS Obtained: Yes All systems reviewed & no additional complaints except as documented Physical Exam General General appearance: alert and in no apparent distress Respiratory Respiratory exam: Present normal lung sounds bilaterally Cardiovascular Cardiovascular exam: Present regular rate and other (Dry mucous membranes delayed capillary refill cool extremities) Abdominal Exam Abdo
[2022-10-14 11:45] LABS: Microscopic, Urine URINE MICROSCOPIC (MICROSCOPIC)
[2022-10-14 11:48] LABS: Appearance,Urine CLEAR (Clear); Bilirubin,Urine Negative (Negative); Blood, Urine Negative (Negative); Color,Urine YELLOW (Yellow); Glucose,Urine (UA) Negative (Negative); Ketones,Urine Negative (Negative); Leukocyte Esterase,Urine 2+ (Negative); Nitrate,Urine Negative (Negative); Protein,Urine Negative (Negative); Urobilinogen,Urine 0.2 EU/dl (0.2)
[2022-10-14 11:49] LABS: Chloride 103 mmol/L (98-107)
[2022-10-14 11:49] LABS: Coronavirus 19, PCR Not Detected (NotDetected); Influenza A, PCR Not Detected (NotDetected); Influenza B, PCR Not Detected (NotDetected)
[2022-10-14 11:50] LABS: Potassium 3.6 mmoL/L (3.5-5.1); Sodium 134 mmol/L (136-145)
[2022-10-14 11:52] LABS: Alanine Aminotransferase 13 U/L (12-78); Alkaline Phosphatase 107 U/L (38-126); Aspartate Amino Transferase 22 U/L (14-36); Bilirubin,Total 0.6 mg/dl (0.2-1.3); Blood Urea Nitrogen 7 mg/dl (7-17); Creatinine Clearance Estimated 157 mL/min (50-200); Estimated Glomerular Filt Rate 104 ml/min (>60); GFR (African American) 125 ML/MIN (>60)
[2022-10-14 11:53] LABS: Albumin Level 4.2 g/dl (3.5-5.0); Albumin/Globulin Ratio 1.3 (1.1-1.8); Anion Gap 11.6 mEq/L (5-15); Calcium 8.7 mg/dl (8.4-10.2); Carbon Dioxide 23 mmol/L (22.0-30.0); Globulin 3.2 g/dL (1.3-3.2); Glucose 93 mg/dl (74-100); Total Protein,Serum 7.4 g/dl (6.3-8.2)
--- NOTE | 2022-10-14 11:56 | ECG_ITS ---
APPROVED REPORT Exam: Resting ECG HR:81 bpm ECG Measurements Heart Rate 81 AXES ND 132 P 54 QRSd 82 QRS 71 QT 362 T 62 QTc 399 Conclusion SINUS RHYTHM WITH SINUS ARRHYTHMIA LOW QRS VOLTAGE IN PRECORDIAL LEADS [QRS DEFLECTION < 1.0 mV IN CHEST LEADS] BORDERLINE ECG UNCONFIRMED REPORT Electronically signed by : Cal Gieger MD 10/14/2022 19:45:46
[2022-10-14 12:07] LABS: Bacteria,Urine 1+ /lpf
[2022-10-14 13:21] VITALS: BP 121/73; PULSE 80; O2SAT 100
[2022-10-14 13:30] VITALS: BP 118/68; PULSE 78; O2SAT 100
[2022-10-14 14:02] VITALS: BP 111/74; PULSE 82; RESP 18; TEMP 36.7
== END 2022-10-14 14:04 | disposition home or self-care (01) ==
PROVIDERS: Emergency Provider Student in an Organized Health Care Education/Training Program; PCP Physician Assistant
DX: O23.41 Unspecified infection of urinary tract in pregnancy, first trimester (principal); O99.281 Endocrine, nutritional and metabolic diseases complicating pregnancy, first trimester; E86.0 Dehydration; Z3A.12 12 weeks gestation of pregnancy
CPT/HCPCS: 80053; 81001; 87086; 93005; 96360; 99284; 99285; C9803; U0003; U0005

== ENCOUNTER 2023-07-03 10:00 | Emergency (ER) | payer OTHER, SELFPAY ==
[2023-07-03 10:00] VITALS: BP 149/78; PULSE 85; RESP 16; TEMP 36.4; O2SAT 98; BMI 34.4
--- NOTE | 2023-07-03 10:01 | ECG_ITS ---
APPROVED REPORT Exam: Resting ECG HR:89 bpm ECG Measurements Heart Rate 89 AXES FL 125 P 73 QRSd 82 QRS 92 QT 329 T 82 QTc 376 Conclusion SINUS RHYTHM WITH SINUS ARRHYTHMIA BORDERLINE RIGHT AXIS DEVIATION [QRS AXIS > 90] BORDERLINE ECG UNCONFIRMED REPORT Electronically signed by : Cal Geiger MD 07/09/2023 09:11:49
--- NOTE | 2023-07-03 10:15 | XR_ITS ---
FINAL REPORT CLINICAL HISTORY: Shortness of breath COMPARISON: None FINDINGS: The heart size is normal. The mediastinum is normal. There is no focal infiltrate or edema. There are no pleural effusions. There is no pneumothorax. There is no osseous abnormality. IMPRESSION: No acute cardiopulmonary process Reviewed, Interpreted and Dictated by Rob Mays MD Transcribed by Ethel Bowman Authenticated and . [facility]
--- NOTE | 2023-07-03 10:16 | HMH.EDCP ---
Discharge Plan Disposition Patient Disposition: Home, Self-Care Prescriptions Prescriptions: No Action sertraline [Zoloft] 25 mg tablet 25 mg PO DAILY Qty: 30 2RF Activity Restrictions/Add. Instructions Additional Instructions/Restrictions: No acute cardiopulmonary emergency identified today. Please follow-up with your primary care doctor if you have persistent symptoms otherwise you may take Tylenol and ibuprofen as needed for your discomfort. You may return to the emergency department any point if you are also concerned. Clinical Impressions Clinical Impression: Chest pain Discharge ED Provider: Aden Geiger General Chief Complaint: Chest Pain Stated Complaint: chest pain Time Seen by Provider: 07/03/23 10:07 Mode of Arrival: Ambulatory Source of Information: Patient Limitations: No Limitations Description of Symptoms (Recalled from ER Triage Doc. by RN): pt to the ED with left sided chest pain that radiates from her midsternum to behind her left shoulder blade. pt reports her pain is a pressure sensation and rates it a 5 at this time. pt reports it started last night and she took some tums with no relief. History of Present Illness HPI narrative: Patient is a 23-year-old female presenting with chest pain. States that it feels like a muscle strain but denies any specific mechanism to have strained her muscles. States its located in the mid substernal region in the left subscapular region worsening with movement and touch. She does states she lifts her children but otherwise has no specific mechanism as stated above. No exertional component to this she is not nauseated or dyspneic no pleuritic aspect of this no cough fevers chills hemoptysis lower extremity swelling history of DVT or PE however she is on hormonal contraception. Related Data Previous Rx's Medication Instructions Recorded sertraline 25 mg tablet (Zoloft) 25 mg PO DAILY #30 tabs 10/22/22 Allergies Allergy/AdvReac Type Severity Reaction Status Date / Time butorphanol [From Stadol] Allergy shortness Verified 10/22/22 11:29 of breath [facility] Disclaimer: The information contained in this section may have been updated after the patient was seen, as this information can be updated by other users. Medical History (Updated 07/03/23 @ 10:20 by Aden Geiger MD) Major depressive disorder Surgical History (Updated 07/19/22 @ 10:28 by Pricila Donnelly LPN) History of right oophorectomy Family History (Updated 07/19/22 @ 10:29 by Pricila Donnelly LPN) Grandmother Cancer Stroke Grandfather Cancer Stroke Father Hypertension Diabetes Social History (Updated 10/22/22 @ 11:39 by Valerie Mittal APRN) Smoking Status: Never smoker second hand exposure: No alcohol intake: current counseling given: No (no drinking right now; cause she is ) substance use type: denies use counseling given: No current occupational status: employed Travel in the last 8 weeks: None adopted: No caregiver/support person: Yes (for her 19 month old son) foster care: No household members: spouse, family and children housing: house lives independently: Yes marital status: number of children: 1 number of grandchildren: 0 education level: high school 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
[2023-07-03 10:31] VITALS: BP 119/73; PULSE 85; O2SAT 100
[2023-07-03 10:34] LABS: Basophils % 0.5 % (0.1-2.0); Eosinophils % 0.3 % (0.1-12.0); Hematocrit 40.5 % (37.0-47.0); Hemoglobin 13.9 g/dL (12.2-16.2); Lymphocytes # 1.9 K/mm3 (0.7-4.5); Lymphocytes % 30.5 % (10-50); Mean Corpuscular HGB Conc 34.3 g/dL (31.8-35.4); Mean Corpuscular Hemoglobin 29.7 pg (27.0-31.2); Mean Corpuscular Volume 86.7 fl (81-99); Mean Platelet Volume 8.3 fl (7.4-10.4); Monocytes # 0.4 K/mm3 (0.1-1.0); Neutrophils # 3.9 K/mm3 (1.8-7.8); Neutrophils % 62.7 % (37.0-80.0); Platelet Count 233 K/mm3 (142-424); Red Blood Count 4.67 M/mm3 (4.20-5.40); Red Cell Distribution Width 15.5 % (11.5-17.5); White Blood Count 6.2 K/mm3 (4.8-10.8)
[2023-07-03 10:36] LABS: Alanine Aminotransferase 21 U/L (12-78); Albumin Level 4.3 g/dl (3.5-5.0); Albumin/Globulin Ratio 1.3 (1.1-1.8); Alkaline Phosphatase 117 U/L (38-126); Anion Gap 11.7 mEq/L (5-15); Aspartate Amino Transferase 31 U/L (14-36); Bilirubin,Total 0.7 mg/dl (0.2-1.3); Blood Urea Nitrogen 8 mg/dl (7-17); Carbon Dioxide 23 mmol/L (22.0-30.0); Chloride 107 mmol/L (98-107); Creatinine Clearance Estimated 130 mL/min (50-200); Estimated Glomerular Filt Rate 77 ml/min (>60); GFR (African American) 93 ML/MIN (>60); Globulin 3.3 g/dL (1.3-3.2); Glucose 99 mg/dl (74-100); Lipase 112 U/L (23-300); Potassium 3.7 mmoL/L (3.5-5.1); Sodium 138 mmol/L (136-145); Total Protein,Serum 7.6 g/dl (6.3-8.2)
[2023-07-03 10:49] LABS: Troponin I < 0.01 ng/ml (0.00-0.034)
--- NOTE | 2023-07-03 10:56 | PC.NURSE ---
rad at bedside
[2023-07-03 10:57] LABS: D-Dimer 0.62 ug/mL (0.0-0.5)
[2023-07-03 11:00] VITALS: BP 112/81; PULSE 88; O2SAT 99
[2023-07-03 11:31] VITALS: BP 130/83; PULSE 80; RESP 18; TEMP 36.7; O2SAT 98
== END 2023-07-03 11:37 | disposition home or self-care (01) ==
PROVIDERS: Emergency Provider Student in an Organized Health Care Education/Training Program; PCP Physician Assistant
DX: R07.9 Chest pain, unspecified (principal)
CPT/HCPCS: 71045; 80053; 83690; 84484; 85025; 85378; 93005; 96374; 99284

== ENCOUNTER 2023-07-22 09:17 | Outpatient (CLI) | payer OTHER, SELFPAY ==
--- NOTE | 2023-07-22 09:22 | US_ITS ---
FINAL REPORT CLINICAL HISTORY: RUQ PAIN COMPARISON: None FINDINGS: Sonographic images of the right upper quadrant were obtained. The pancreas is partially obscured.The liver has an unremarkable appearance.The gallbladder appears normal without evidence of gallstones.There is no evidence of biliary ductal dilatation.The common duct measures 5 mm. Limited images of the right kidney are unremarkable. IMPRESSION: Unremarkable right upper quadrant ultrasound. Reviewed, Interpreted and Dictated by Basil Amos III, MD Transcribed by Priya Kapoor Authenticated and [facility]
== END 2023-07-22 23:59 ==
LOC: RAD 09:17
PROVIDERS: PCP Physician Assistant; Visit Provider Physician Assistant
DX: R10.11 Right upper quadrant pain (principal)
CPT/HCPCS: 76705

== ENCOUNTER 2023-08-06 09:28 | Outpatient (CLI) | payer OTHER, SELFPAY ==
--- NOTE | 2023-08-06 09:31 | NM_ITS ---
FINAL REPORT CLINICAL HISTORY: RT UPPER QUAD PAIN 9:40am 8.80 mci tc choletec 1.7 mcg of cck moderate pain during cck COMPARISON: None FINDINGS: The patient was injected with 8.80 mCi of technetium 99m Choletec and subsequently 1.7 mcg of CCK. Images of the abdomen were obtained for one hour. There is normal distribution of radiopharmaceutical throughout the liver. Sequential images demonstrate progressive accumulation of activity within the gallbladder. There is a calculated ejection fraction of 49 %, which is borderline abnormal. IMPRESSION: Borderline abnormal ejection fraction. Reviewed, Interpreted and Dictated by Rob Mays MD Transcribed by Ethel Bowman Authenticated and . [facility]
[2023-08-06] MEDS: ISOTOPE CHOLETECH;1 DOSE (UP TO 15 MCI) IV (11:06)
[2023-08-06] MEDS: SINCALIDE 1.7 MCG in 0.9 % SODIUM CHLORIDE 50 ML 100 MCG IV (11:06)
[2023-08-06] MEDS: SODIUM CHLORIDE 0.9% 10ML SYR (RAD ONLY) 10 ML IV (11:06)
== END 2023-08-06 23:59 ==
LOC: RAD 09:28
PROVIDERS: PCP Physician Assistant; Visit Provider Physician Assistant
DX: R10.11 Right upper quadrant pain (principal)
CPT/HCPCS: 78227; A9537; J2805

== ENCOUNTER 2023-09-04 08:36 | Emergency (ER) | payer OTHER, SELFPAY ==
[2023-09-04 09:25] VITALS: BP 113/86; PULSE 105; RESP 19; TEMP 37.5; O2SAT 98; BMI 31.6
[2023-09-04 09:38] LABS: UTC Influenza A Antigen Positive (Negative)
[2023-09-04 09:39] LABS: UTC Influenza B Antigen Negative (Negative)
--- NOTE | 2023-09-04 09:52 | ED_ITS ---
Discharge Plan Disposition Patient Disposition: Home, Self-Care Condition: Good Prescriptions Prescriptions: New oseltamivir [Tamiflu] 75 mg capsule 75 mg PO Q12H 5 Days Qty: 10 0RF No Action norelgestromin-ethin.estradiol [Zafemy] 150-35 mcg/24 hr patch weekly 1 patch topical Referrals Follow up/Referrals: Michelle Nino PA [Primary Care Provider] - See instructions Activity Restrictions/Add. Instructions Additional Instructions/Restrictions: * Start Tamiflu today if you are going to take it. Discussed risk and possible benefits. * Lots of rest * Increase Fluids water, Gatorade, powerade, pedialyte,if /toddler/child * Alternate Tylenol and / or ibuprofen as discussed for fever, aches, chil ls Follow up IMMEDIATELY with your family doctor for new or worsening Symptoms OR no noticeable improvement over the next 48-72 hours, 911 for difficulty or breathing * You or your child area contagious until no fever, aches, chills for 24 hours with medication for symptoms * Help Prevent the spread of influenza: * ?Wash your hands often. Use soap and water. Wash your hands after you use the bathroom, change a child's diapers, or sneeze. Wash your hands before you prepare or eat food. Use gel hand cleanser that has 60% alcohol, when soap and water are not available. Do not touch your eyes, nose, or mouth unless you have washed your hands first. * Cover your mouth when you sneeze or cough. Cough into a tissue or the bend of your arm. If you use a tissue, throw it away immediately and wash your hands. * Clean shared items with a germ-killing barrel cleaner. Clean table surfaces, doorknobs, and light switches. Do not share towels, silverware, and dishes with people who are sick. Wash bed sheets, towels, silverware, and dishes with soap and water. * Wear a mask over your mouth and nose if you are sick. The face mask may help protect others from becoming infected with the flu. Wear the mask when in common areas of your home or if you seek care with a healthcare provider. * Stay away from others if you are sick. Stay at home until 24 hours after your fever and symptoms are gone. Clinical Impressions Clinical Impression: Influenza Stand Alone Forms Stand Alone Forms: Work/School Release Instructions Patient Instructions: DI for Influenza -- Adult, Oseltamivir Discharge ED Provider: Maricarmen Fountain [facility] HPI General Stated complaint: fever, congestion,headache Mode of Arrival: Ambulatory Source of Information: Patient Limitations: No Limitations Time Seen by Provider: 09/04/23 09:52 Description of Symptoms (Recalled from Triage Doc. by RN): PATIENT C/O CONGESTION, HEADACHE, AND CHILLS SINCE LAST NIGHT HEENT Symptoms (Recalled from RN notes): Yes Resp Symptoms (Recalled from RN notes): No Skin Symptoms (Recalled from RN notes): No MS Symptoms (Recalled from RN notes): No Functional Status (Recalled from RN notes): WNL History of Present Illness Provider Complaint: Patient states that he children have been sick and states that she started feeling bad last night with body aches, chills, nasal congestion and headache states that she feels like she may have flu so she came down to get checked Related Data Home Medications Medication Instructions Recorded Confirmed norelgestromin 150 mcg-e.estradiol 1 patch topical 08/26/23 08/26/23 35 mcg/24 hr weekly transderm patch (Zafemy) Previous Rx's Medication Instructions Recorded oseltamivir 75 mg capsule (Tamiflu) 75 mg PO Q12H 5 days #10 caps 09/04/23 Allergies Allergy/AdvReac Type Severity Reaction Status Date / Time butorphanol [From Stadol] Allergy shortness Verified 08/26/23 09:11 of breath Worker's Comp Is this a Worker's Comp case?: No [facility] Disclaimer: The information contained in this section may have been updated after the patient was seen, as this information can be updated by other users. Medical History Major depressive disorder Surgical History History of right oophorectomy Family History Grandmother Cancer Stroke Grandfather Cancer Stroke Father Hypertension Diabetes Social History Smoking Status: Never smoker second hand exposure: No alcohol intake: current counseling given: No (no drinking right now; cause she is ) substance use type: denies use counseling given: No current occupational status: employed Travel in the last 8 weeks: None adopted: No caregiver/support person: Yes (for her 19 month old son) foster care: No household members: spouse, family and children housing: house lives independently: Yes marital status: number of children: 1 number of grandchildren: 0 education level: high school 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[employer]; 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 Hx Recent Travel: No sexually active: Yes are you practicing safe sex: Yes caffeine: Yes physical activity: none austin/jew: None special austin needs: No working smoke detector in home: Yes fire extinguisher in home: No carbon monox detector in home: No firearms in home: Yes firearms unloaded and locked: Yes do you feel safe at home: Yes victim of physical abuse: No victim of emotional abuse: No victim of sexual abuse: No would you like helpful sources: No ROS Obtained: Yes All systems reviewed & no additional complaints except as documented and Yes Systems reviewed as appropriate & no additional complaints except as documented Constitutional Constitutional: Reports system reviewed and no additional complaints, except as documented, Reports body ache, Reports chills, Reports fever(s) and Reports headache(s) ENT Ears, Nose, Mouth, and Throat: Reports system reviewed and no additional complaints, except as documented, Reports as per HPI, Reports headache(s) and Reports nasal congestion Cardiovascular Cardiovascular: Reports system reviewed and no additional complaints, except as documented and Reports as per HPI Neurologic Neurologic: Reports headache(s) Physical Exam General General appearance: alert and in no apparent distress ENT ENT exam: Present normal exam, mucous membranes moist and TM's normal bilaterally Respiratory Respiratory exam: Present normal lung sounds bilaterally; Absent respiratory distress or wheezes Cardiovascular Cardiovascular exam: Present regular rate, normal rhythm and tachycardia Neurological Exam Neurological exam: Present alert, oriented X3 and normal gait Medical Decision Making Bernardo Inquiry Pt receiving controlled substance: No Bernardo was queried for this patient: No Vital Signs: 09/04/23 09:25 Temperature 99.5 F Temperature Source Oral Pulse Rate [Left Brachial] 105 H Respiratory Rate 19 Blood Pressure [Left Arm] 113/86 Blood Pressure Mean [Left Arm] 95 Blood Pressure Source [Left Arm] Automatic Cuff Blood Pressure Position [Left Arm] Sitting 02 Sat by Pulse Oximetry 98 Oxygen Delivery Method Room Air Lab Data Lab results reviewed: Yes I reviewed the patient's lab results. Lab Results 09/04/23 09:29: Influenza Type A Ag Positive A, Influenza Type B Ag Negative
[2023-09-04 10:05] VITALS: BP 113/86; PULSE 105; RESP 19; TEMP 37.5; O2SAT 98
== END 2023-09-04 10:10 | disposition home or self-care (01) ==
PROVIDERS: Emergency Provider Nurse Practitioner; PCP Physician Assistant
DX: J10.1 Influenza due to other identified influenza virus with other respiratory manifestations (principal); R51.9 Headache, unspecified; R50.9 Fever, unspecified; R09.81 Nasal congestion
CPT/HCPCS: 87804; 99204; 99212; G0463

== ENCOUNTER 2023-09-09 06:24 | Emergency (ER) | payer OTHER, SELFPAY ==
[2023-09-09 06:27] VITALS: BP 133/86; PULSE 104; RESP 16; TEMP 36.4; O2SAT 99; BMI 33.5
--- NOTE | 2023-09-09 06:57 | ED_ITS ---
Discharge Plan Disposition Patient Disposition: Home, Self-Care Condition: Good Prescriptions Prescriptions: New amoxicillin 500 mg capsule 500 mg PO BID 10 Days Qty: 20 0RF No Action norelgestromin-ethin.estradiol [Zafemy] 150-35 mcg/24 hr patch weekly 1 patch topical oseltamivir [Tamiflu] 75 mg capsule 75 mg PO Q12H 5 Days Qty: 10 0RF Referrals Follow up/Referrals: Michelle Nino PA [Primary Care Provider] - See instructions Activity Restrictions/Add. Instructions Additional Instructions/Restrictions: Please return to the emergency department if you experience any new or worsening symptoms. Clinical Impressions Clinical Impression: Bilateral acute otitis media Stand Alone Forms Stand Alone Forms: Work/School Release Instructions Patient Instructions: DI for Otitis Media (Middle Ear Infection)-Child Discharge ED Provider: Simón Chowdary Adult HPI General Chief complaint: Upper Respiratory Infection Stated complaint: unable to eat,dizzy,hot flashes,cant hear left ear Time Seen by Provider: 09/09/23 06:57 Mode of Arrival: Ambulatory Source of Information: Patient Limitations: No Limitations Description of Symptoms (Recalled from ER Triage Doc. by RN): pt states tested positive for flu last . pt c/o lt ear pain,chills,sore throat. History of Present Illness HPI narrative: Patient reports recent diagnosis of influenza however has developed left ear pain, sore throat, nonproductive cough with associated chest discomfort when coughing. No palpitations. Denies chronic medical issues. No previous therap ies outside of [id number] analgesia and has completed course of Tamiflu.. Denies any nausea vomiting however has had decreased p.o. intake. No nuchal rigidity. No confusion. No abdominal pain. No pain elsewhere. Please note that above description of symptoms, in this electronic medical record under categorization of recalled from ER triage doctor by RN are reflective of an initial nursing assessment, however, is not reflective of my full history and physical exam that was personally taken and clarified. Consequentially, this preceding description of symptoms, which may include the patient's categorized chief complaint in the EMR, do not reflect my personal clinical impression, and the ultimate description of history of present illness and patient stated complaints should be deferred to this section of the note. Unless stated otherwise or congruent with this section of the note, additional signs, symptoms, or incongruence should be interpreted as inaccurate with my clinical impression. Related Data Home Medications Medication Instructions Recorded Confirmed norelgestromin 150 mcg-e.estradiol 1 patch topical 08/26/23 08/26/23 35 mcg/24 hr weekly transderm patch (Zafemy) Previous Rx's Medication Instructions Recorded oseltamivir 75 mg capsule (Tamiflu) 75 mg PO Q12H 5 days #10 caps 09/04/23 amoxicillin 500 mg capsule 500 mg PO BID 10 days #20 caps 09/09/23 Allergies Allergy/AdvReac Type Severity Reaction Status Date / Time butorphanol [From Stadol] Allergy shortness Verified 08/26/23 09:11 of breath PFSH PFS Disclaimer: The information contained in this section may have been updated after the patient was seen, as this information can be updated by other users. Medical History Major depressive disorder Surgical History History of right oophorectomy Family History Grandmother Cancer Stroke Grandfather Cancer Stroke Father Hypertension Diabetes Social History Smoking Status: Never smoker second hand exposure: No alcohol intake: current counseling given: No (no drinking right now; cause she is ) substance use type: denies use counseling given: No current occupational status: employed Travel in the last 8 weeks: None adopted: No caregiver/support person: Yes (for her 19 month old son) foster care: No household members: spouse, family and children housing: house lives independently: Yes marital status: number of children: 1 number of grandchildren: 0 education level: high school 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[email or web address]; 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 Hx Recent Travel: No sexually active: Yes are you practicing safe sex: Yes caffeine: Yes physical activity: none austin/baptism: None special austin needs: No working smoke detector in home: Yes fire extinguisher in home: No carbon monox detector in home: No firearms in home: Yes firearms unloaded and locked: Yes do you feel safe at home: Yes victim of physical abuse: No victim of emotional abuse: No victim of sexual abuse: No would you like helpful sources: No ROS Obtained: Yes Systems reviewed as appropriate & no additional complaints except as documented As per HPI Physical Exam General General appearance: alert Comment: Uncomfortable appearing however nontoxic Head Head exam: atraumatic and normocephalic Eye Eye exam: Present normal appearance ENT ENT exam: Present other (Bilateral bulging and erythematous tympanic membranes) Neck Neck exam: Present normal inspection Chest Chest inspection: Present normal inspection and symmetric chest wall rise Respiratory Respiratory exam: Present normal lung sounds bilaterally; Absent respiratory distress Cardiovascular Cardiovascular exam: Present regular rate and normal rhythm Abdominal Exam Abdominal exam: Present soft Neurological Exam Neurological exam: Present alert and oriented X3 Psychiatric Psychiatric exam: Present normal affect and normal mood Skin Skin exam: Present warm and dry Medical Decision Making Medical Records Medical records reviewed: Yes I reviewed the patient's medical records. Bernardo Inquiry Pt receiving controlled substance: No Vital Signs: 09/09/23 06:27 09/09/23 07:40 09/09/23 08:00 Temperature 97.6 F Temperature Source Oral Pulse Rate 97 H 104 H Pulse Rate [Right] 104 H Respiratory Rate 16 Blood Pressure 130/81 129/84 Blood Pressure [Right Arm] 133/86 Blood Pressure Mean [Right Arm] 101 02 Sat by Pulse Oximetry 99 97 97 Oxygen Delivery Method Room Air Room Air 09/09/23 08:30 09/09/23 09:40 Temperature 98.0 F Temperature Source Oral Pulse Rate 93 H 89 Pulse Rate [Right] Respiratory Rate 17 Blood Pressure 131/87 153/97 H Blood Pressure [Right Arm] Blood Pressure Mean [Right Arm] 02 Sat by Pulse Oximetry 97 Oxygen Delivery Method Room Air Room Air Lab Data Lab Results 09/09/23 06:44: Group A Strep Rapid Negative Orders (Tests/Meds): ED MEDICATIONS Discontinued Medications Generic Name Dose Route Start Last Admin Trade Name Freq PRN Reason Stop Dose Admin Dexamethasone Sodium Phosphate 8 mg 09/09/23 07:06 09/09/23 07:43 Dexamethasone 4mg/Ml 1ml Vial IV 09/09/23 07:07 8 mg ONCE ONE Administration Lactated Ringer's 1,000 mls @ 999 mls/hr 09/09/23 07:06 09/09/23 07:43 Lactated Ringer's 1000 Ml Bag IV 09/09/23 08:06 999 mls/hr .Q1H1M ONE Administration Ketorolac Tromethamine 15 mg 09/09/23 07:08 09/09/23 07:43 Ketorolac 30mg/Ml Vial IV 09/09/23 07:09 15 mg ONCE ONE Administration Lidocaine HCl 15 ml 09/09/23 07:07 09/09/23 07:43 Lidocaine 2% Viscous Emily 15ml Udc PO 09/09/23 07:08 15 ml ONCE ONE Administration ORDERS Category Date Time Status XR chest 2V Stat Exams 09/09/23 07:06 Completed Rapid Strep Scrn Group A [Strep Scrn Group A (Rapid)] Lab 09/09/23 06:44 Completed Stat Strep Screen Confirmation Stat Micro 09/09/23 06:44 Received Medical Decision Narrative: Patient with history and exam per above presenting for evaluation of double worsening after known diagnosis of influenza and completed course of Tamiflu. Diagnoses considered include pneumonia, hypovolemia, strep pharyngitis, otitis media ED workup and treatment included: ED MEDICATIONS Discontinued Medications Generic Name Dose Route Start Last Admin Trade Name Freq PRN Reason Stop Dose Admin Dexamethasone Sodium Phosphate 8 mg 09/09/23 07:06 09/09/23 07:43 Dexamethasone 4mg/Ml 1ml Vial IV 09/09/23 07:07 8 mg ONCE ONE Administration Lactated Ringer's 1,000 mls @ 999 mls/hr 09/09/23 07:06 09/09/23 07:43 Lactated Ringer's 1000 Ml Bag IV 09/09/23 08:06 999 mls/hr .Q1H1M ONE Administration Ketorolac Tromethamine 15 mg 09/09/23 07:08 09/09/23 07:43 Ketorolac 30mg/Ml Vial IV 09/09/23 07:09 15 mg ONCE ONE Administration Lidocaine HCl 15 ml 09/09/23 07:07 09/09/23 07:43 Lidocaine 2% Viscous Emily 15ml Udc PO 09/09/23 07:08 15 ml ONCE ONE Administration ORDERS Category Date Time Status XR chest 2V Stat Exams 09/09/23 07:06 Completed Rapid Strep Scrn Group A [Strep Scrn Group A (Rapid)] Lab 09/09/23 06:44 Completed Stat Strep Screen Confirmation Stat Micro 09/09/23 06:44 Received Labs were independently interpreted by me, significant for no acute findings Imaging was independently visualized and interpreted by me, significant for no lobar consolidation. Please refer to radiology report for full details. My clinical impression at this time is most consistent with bilateral otitis media for which patient will complete course of antibiotics I discussed my clinical impression with patient and answered all questions. At this time, the evidence for any other entities in the differential is insufficient to warrant any further testing or ED observation. This was explained to the patient. The patient was advised that persistent or worsening symptoms require further evaluation. I confirmed the patient's understanding of this discussion. Critical Care Critical Care Time Critical Care Time: No
[2023-09-09 07:02] LABS: Strep Scrn Group A (Rapid) Negative (Negative)
--- NOTE | 2023-09-09 07:06 | XR_ITS ---
FINAL REPORT CLINICAL HISTORY: influenza 1 week ago, double worsening FINDINGS: PA and lateral views of the chest are obtained. There is no prior exam for comparison. The cardiac and mediastinal silhouettes are within normal limits. The lungs are clear. There is no pleural effusion, pneumothorax, or acute osseous abnormality. IMPRESSION: No radiographic evidence of acute cardiac or pulmonary disease. Reviewed, Interpreted and Dictated by Jeanne Rausch MD Transcribed by Argelia Kulkarni Authenticated and [facility]
[2023-09-09 07:40] VITALS: BP 130/81; PULSE 97; O2SAT 97
[2023-09-09] MEDS: LACTATED RINGERS 1000ML 1,000 ML 999 ML IV (07:43)
[2023-09-09] MEDS: KETOROLAC 30MG/ML VIAL 15 MG IV (07:43)
[2023-09-09] MEDS: DEXAMETHASONE 4MG/ML 1ML VIAL 8 MG IV (07:43)
[2023-09-09] MEDS: LIDOCAINE 2% VISCOUS SOL 15ML UDC 15 ML PO (07:43)
[2023-09-09 08:00] VITALS: BP 129/84; PULSE 104; O2SAT 97
[2023-09-09 08:30] VITALS: BP 131/87; PULSE 93; O2SAT 97
--- NOTE | 2023-09-09 08:54 | PC.NURSE ---
I rounded on the pt, she states she feels somewhat better. Pts fluids are finished infusing.
--- NOTE | 2023-09-09 09:01 | PC.NURSE ---
ROUNDED ON PT STATES SHE WAS GOOD NOTHING NEEDED AT THIS TIME,CALL LIGHT AT [facility]
[2023-09-09 09:40] VITALS: BP 153/97; PULSE 89; RESP 17; TEMP 36.7; O2SAT 99
== END 2023-09-09 09:41 | disposition home or self-care (01) ==
PROVIDERS: Emergency Medicine; Emergency Provider Emergency Medicine; PCP Physician Assistant
DX: H66.93 Otitis media, unspecified, bilateral (principal); J02.9 Acute pharyngitis, unspecified; R05.9 Cough, unspecified; R07.89 Other chest pain
CPT/HCPCS: 71046; 87430; 96361; 96374; 96375; 99284

== ENCOUNTER 2023-09-22 14:17 | Emergency (ER) | payer OTHER, SELFPAY ==
[2023-09-22 14:30] VITALS: BP 139/87; PULSE 79; RESP 20; TEMP 36.7; O2SAT 99; BMI 31.8
--- NOTE | 2023-09-22 14:44 | ED_ITS ---
Discharge Plan Disposition Patient Disposition: Home, Self-Care Condition: Good Prescriptions Prescriptions: No Action norelgestromin-ethin.estradiol [Zafemy] 150-35 mcg/24 hr patch weekly 1 patch topical WEEKLY Referrals Follow up/Referrals: Michelle Nino PA [Primary Care Provider] - See instructions Activity Restrictions/Add. Instructions Additional Instructions/Restrictions: Go to [facility] as discussed for further evaluation and testing Further care per [facility] Clinical Impressions Clinical Impression: Abnormal vaginal bleeding Discharge ED Provider: Maricarmen Fountain [facility] [place] General Stated complaint: Abd Pain, Vaginal bleeding 17 days Mode of Arrival: Ambulatory Source of Information: Patient Limitations: No Limitations Time Seen by Provider: 09/22/23 14:44 Description of Symptoms (Recalled from Triage Doc. by RN): PATIENT C/O VAGINAL BLEEDING X 17 DAYS WITH SHARP LLQ PAIN. SHE STATES BLEEDING IS HEAVY WITH CLOTS. PATIENT STATES SHE IS 4 MONTHS POST- AND HAS A HISTORY OF OVARIAN CYSTS HEENT Symptoms (Recalled from RN notes): No Resp Symptoms (Recalled from RN notes): No Skin Symptoms (Recalled from RN notes): No MS Symptoms (Recalled from RN notes): No Functional Status (Recalled from RN notes): WNL History of Present Illness Provider Complaint: Patient states that for the last 17days she has been having heavy vaginal bleeding and passing of clots States that she has also been having sharp pain in her left lower abdomen States that she called her OBGYN but they couldnt get her in so she came in here Related Data Home Medications Medication Instructions Recorded Confirmed norelgestromin 150 mcg-e.estradiol 1 patch topical WEEKLY 08/26/23 09/22/23 35 mcg/24 hr weekly transderm patch (Zafemy) Allergies Allergy/AdvReac Type Severity Reaction Status Date / Time butorphanol [From Stadol] Allergy shortness Verified 08/26/23 09:11 of breath Worker's Comp Is this a Worker's Comp case?: No [facility] Disclaimer: The information contained in this section may have been updated after the patient was seen, as this information can be updated by other users. Medical History Major depressive disorder Surgical History History of right oophorectomy Family History Grandmother Cancer Stroke Grandfather Cancer Stroke Father Hypertension Diabetes Social History Smoking Status: Never smoker second hand exposure: No alcohol intake: current counseling given: No (no drinking right now; cause she is ) substance use type: denies use counseling given: No current occupational status: employed Travel in the last 8 weeks: None adopted: No caregiver/support person: Yes (for her 19 month old son) foster care: No household members: spouse, family and children housing: house lives independently: Yes marital status: number of children: 1 number of grandchildren: 0 education level: high school 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[employer]; 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 Hx Recent Travel: No sexually active: Yes are you practicing safe sex: Yes caffeine: Yes physical activity: none austin/holiness: None special austin needs: No working smoke detector in home: Yes fire extinguisher in home: No carbon monox detector in home: No firearms in home: Yes firearms unloaded and locked: Yes do you feel safe at home: Yes victim of physical abuse: No victim of emotional abuse: No victim of sexual abuse: No would you like helpful sources: No ROS Obtained: Yes All systems reviewed & no additional complaints except as documented and Yes Systems reviewed as appropriate & no additional complaints except as documented Constitutional Constitutional: Reports system reviewed and no additional complaints, except as documented and Reports as per HPI ENT Ears, Nose, Mouth, and Throat: Reports system reviewed and no additional complaints, except as documented and Reports as per HPI Cardiovascular Cardiovascular: Reports system reviewed and no additional complaints, except as documented and Reports as per HPI Respiratory Respiratory: Reports system reviewed and no additional complaints, except as documented and Reports as per HPI Gastrointestinal Gastrointestingal: Reports system reviewed and no additional complaints, except as documented, as per HPI and abdominal pain Genitourinary Female Genitourinary: Reports system reviewed and no additional complaints, except as documented, Reports as per HPI, Reports abnormal vaginal bleeding and Reports other (sharp pains in left lower abd/pelvic area) Musculoskeletal Musculoskeletal: Reports system reviewed and no additional complaints, except as documented and Reports as per HPI Physical Exam General General appearance: alert and in no apparent distress ENT ENT exam: Present mucous membranes moist Respiratory Respiratory exam: Present normal lung sounds bilaterally; Absent respiratory distress or wheezes Cardiovascular Cardiovascular exam: Present regular rate, normal rhythm and normal heart sounds Abdominal Exam Abdominal exam: Present soft, distention and tenderness (reports tenderness in left lower abdomen) Neurological Exam Neurological exam: Present alert, oriented X3 and normal gait Medical Decision Making Bernardo Inquiry Pt receiving controlled substance: No Bernardo was queried for this patient: No Vital Signs: 09/22/23 14:30 Temperature 98.0 F Temperature Source Oral Pulse Rate [Right Brachial] 79 Respiratory Rate 20 Blood Pressure [Right Arm] 139/87 Blood Pressure Mean [Right Arm] 104 Blood Pressure Source [Right Arm] Automatic Cuff Blood Pressure Position [Right Arm] Sitting 02 Sat by Pulse Oximetry 99 Oxygen Delivery Method Room Air Medical Decision Narrative: Patient reports has had Ovary removed on right in 2020 and had been discussing with OBGYN about removal of Ovary on left States that she has been having heavy vaginal bleeding with passing of clots for 17 days States despite using control patch and states that she is having sharp pain in her left lower abdomen, discussed with patient and recommended transfer to the ED for furhter work up and evaluation Patient states that her OBGYN is at [facility] and she will go to the ED there for furhter work up and evaluation in case if she needs surgery or something her OBGYN is already there. Patient aware of risks and agreed to go to [facility] for further evaluation and examination. Patient agreed that she would leave the [facility] and go straight to [facility] for furher examination and testing
[2023-09-22 14:47] LABS: Apearance,Urine Turbid (Clear); Color,Urine Red (Yellow)
[2023-09-22 14:48] LABS: Bilirubin,Urine 2+ (Negative); Blood, Urine 3+ (Negative); Glucose,Urine (UA) Negative (Negative); Ketones,Urine 1+ (Negative); Protein,Urine 1+ (Negative); UTC Leukocyte Esterase,Urine Negative (Negative); UTC Nitrate,Urine Negative (Negative); UTC Pregnancy Test, Urine Negative (Negative); Urobilinogen,Urine 1 EU/dl (0.2)
[2023-09-22 14:50] VITALS: BP 139/87; PULSE 79; RESP 20; TEMP 36.7; O2SAT 99
== END 2023-09-22 14:54 | disposition home or self-care (01) ==
PROVIDERS: Emergency Provider Nurse Practitioner; PCP Physician Assistant
DX: N93.9 Abnormal uterine and vaginal bleeding, unspecified (principal); R10.32 Left lower quadrant pain; F32.9 Major depressive disorder, single episode, unspecified
CPT/HCPCS: 81003; 81025; 99212; 99214; G0463

== ENCOUNTER 2023-09-26 08:49 | Emergency (ER) | payer OTHER, SELFPAY ==
[2023-09-26 08:50] VITALS: BP 130/77; PULSE 74; RESP 16; TEMP 36.5; O2SAT 99; BMI 30.3
--- NOTE | 2023-09-26 09:18 | HMH.EDGENADL ---
Discharge Plan Disposition Patient Disposition: Home, Self-Care Condition: Good Prescriptions Prescriptions: New omeprazole 20 mg capsule,delayed release(DR/EC) 20 mg PO DAILY 28 Days Qty: 28 0RF ondansetron 4 mg tablet,disintegrating 4 mg PO Q8H PRN (Reason: nausea and vomiting) 5 Days Qty: 10 0RF dicyclomine 20 mg tablet 20 mg PO BID Qty: 30 0RF No Action norelgestromin-ethin.estradiol [Zafemy] 150-35 mcg/24 hr patch weekly 1 patch topical WEEKLY Referrals Follow up/Referrals: Michelle Nino PA [Primary Care Provider] - See instructions Activity Restrictions/Add. Instructions Additional Instructions/Restrictions: Please follow-up with the GI doctor. I have prescribed 3 medications to help with some of your symptoms. Please return with any new or worsening symptoms Clinical Impressions Clinical Impression: Nausea & vomiting Qualifiers: Vomiting type: unspecified Qualified Code(s): R11.2 - Nausea with vomiting, unspecified Instructions Patient Instructions: DI for Diarrhea and Traveler's Diarrhea -- Adult, DI for Diarrhea and Traveler's Diarrhea -- Child, DI for Nausea -- Adult, DI for Nausea -- Child Discharge ED Provider: Simón Chowdary General Adult HPI General Chief complaint: Nausea/Vomiting/Diarrhea Stated complaint: dehydration, pain in abd, no drink/eat Time Seen by Provider: 09/26/23 09:06 Mode of Arrival: Ambulatory Source of Information: Patient Limitations: No Limitations Description of Symptoms (Recalled from ER Triage Doc. by RN): patient presents to ED with complaints of nausea, vomiting for 2 weeks reports unable to keep anything down. States she was seen at [facility] ER and they stated her gallbladder was not working properly and her liver enzymes were elevated. History of Present Illness HPI narrative: Patient reports nausea, vomiting, gradual in onset for the past 2 months, constant with no exacerbating or alleviating factors. She describes diffuse nonradiating abdominal pain with no fevers or chills or sick contacts. She is able to move her bowels, she has had associated weight loss. Symptoms arose after giving to child last year. Denies any complications during childbirth. She has been previously evaluated by general surgery, gastroenterology for mildly elevated total bilirubin, as well as liver enzymes mildly elevated. Denies any pain elsewhere. Denies any dysuria or frequency. Denies any chest pain or palpitations. Please note that above description of symptoms, in this electronic medical record under categorization of recalled from ER triage doctor by RN are reflective of an initial nursing assessment, however, is not reflective of my full history and physical exam that was personally taken and clarified. Consequentially, this preceding description of symptoms, which may include the patient's categorized chief complaint in the EMR, do not reflect my personal clinical impression, and the ultimate description of history of present illness and patient stated complaints should be deferred to this section of the note. Unless stated otherwise or congruent with this section of the note, additional signs, symptoms, or incongruence should be interpreted as inaccurate with my clinical impression. Related Data Home Medications Medication Instructions Recorded Confirmed norelgestromin 150 mcg-e.estradiol 1 patch topical WEEKLY 08/26/23 09/22/23 35 mcg/24 hr weekly transderm patch (Zafemy) Previous Rx's Medication Instructions Recorded dicyclomine 20 mg tablet 20 mg PO BID #30 tabs 09/26/23 omeprazole 20 mg capsule,delayed 20 mg PO DAILY 28 days #28 caps 09/26/23 release ondansetron 4 mg disintegrating 4 mg PO Q8H PRN nausea and 09/26/23 tablet vomiting 5 days #10 tabs Allergies Allergy/AdvReac Type Severity Reaction Status Date / Time butorphanol [From Stadol] Allergy shortness Verified 08/26/23 09:11 of breath [facility] Disclaimer: The information contained in this section may have been updated after the patient was seen, as this information can be updated by other users. Medical History Major depressive disorder Surgical History History of right oophorectomy Family History Grandmother Cancer Stroke Grandfather Cancer Stroke Father Hypertension Diabetes Social History Smoking Status: Current every day smoker second hand exposure: No alcohol intake: current counseling given: No (no drinking right now; cause she is ) substance use type: denies use counseling given: No current occupational status: employed Travel in the last 8 weeks: None adopted: No caregiver/support person: Yes (for her 19 month old son) foster care: No household members: spouse, family and children housing: house lives independently: Yes marital status: number of children: 1 number of grandchildren: 0 education level: high school 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[employer]; 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 Hx Recent Travel: No sexually active: Yes are you practicing safe sex: Yes caffeine: Yes physical activity: none aust[place]/religious: None special [place]in needs: No working smoke detector in home: Yes fire extinguisher in home: No carbon monox detector in home: No firearms in home: Yes firearms unloaded and locked: Yes do you feel safe at home: Yes victim of physical abuse: No victim of emotional abuse: No victim of sexual abuse: No would you like helpful sources: No ROS Obtained: Yes Systems reviewed as appropriate & no additional complaints except as documented As per HPI Physical Exam General General appearance: alert and in no apparent distress Head Head exam: atraumatic and normocephalic Eye Eye exam: Present normal appearance Neck Neck exam: Present normal inspection Chest Chest inspection: Present normal inspection and symmetric chest wall rise Respiratory Respiratory exam: Present normal lung sounds bilaterally; Absent respiratory distress Cardiovascular Cardiovascular exam: Present regular rate and normal rhythm Abdominal Exam Abdominal exam: Present soft and tenderness Abdominal tenderness: Present diffuse and mild Neurological Exam Neurological exam: Present alert and oriented X3 Psychiatric Psychiatric exam: Present normal affect and normal mood Skin Skin exam: Present warm and dry Medical Decision Making Medical Records Medical records reviewed: Yes I reviewed the patient's medical records. Bernardo Inquiry Pt receiving controlled substance: No Vital Signs: 09/26/23 08:50 09/26/23 10:13 09/26/23 12:34 Temperature 97.7 F 97.7 F Temperature Source Oral Oral Pulse Rate 72 72 Pulse Rate [Right] 74 Respiratory Rate 16 18 Blood Pressure 138/88 117/76 Blood Pressure [Right Arm] 130/77 Blood Pressure Mean [Right Arm] 94 Blood Pressure Source [Right Arm] Automatic Cuff 02 Sat by Pulse Oximetry 99 99 Oxygen Delivery Method Room Air Room Air Room Air Lab Data Lab Results 09/26/23 09:18: WBC 10.6, RBC 4.32, Hgb 12.9, Hct 39.8, MCV 92.3, MCH 29.8, MCHC 32.3, RDW 14.0, Plt Count 226, MPV 8.9, Neut % (Auto) 84.4 H, Lymph % (Auto) 11.0, [place] % (Auto) 3.9, Eos % (Auto) 0.2, Baso % (Auto) 0.5, Neut # (Auto) 8.9 H, Lymph # (Auto) 1.2, [place] # (Auto) 0.4, Eos # (Auto) 0.0, Baso # (Auto) 0.1, Sodium 138, Potassium 3.6, Chloride 107, Carbon Dioxide 25, Anion Gap 9.6, BUN 4 L, Creatinine 0.70, Estimated Creat Clear 147, Estimated GFR 103, Est GFR ( Amer) 124, Glucose 108 H, Calcium 9.1, Total Bilirubin 1.8 H, Direct Bilirubin 0.1, AST 92 H, ALT 200 H, Alkaline Phosphatase 109, Total Protein 6.9, Albumin 4.0, Globulin 2.9, Albumin/Globulin Ratio 1.4, Lipase 84, TSH 0.75, Free T4 1.49, Serum HCG, Qual Negative 09/26/23 09:18 09/26/23 09:18 Orders (Tests/Meds): ED MEDICATIONS Discontinued Medications Generic Name Dose Route Start Last Admin Trade Name Freq PRN Reason Stop Dose Admin Belladonna Alkaloids 60 ml 09/26/23 09:36 09/26/23 10:03 Belladonna Alkaloids 60 Ml Ml PO 09/26/23 09:37 60 ml ONCE ONE Administration Lactated Ringer's 1,000 mls @ 999 mls/hr 09/26/23 09:36 09/26/23 10:03 Lactated Ringer's 1000 Ml Bag IV 09/26/23 10:36 999 mls/hr .Q1H1M ONE Administration Iopamidol 75 ml 09/26/23 10:53 09/26/23 10:54 Iopamidol-370 (76%);100ml Bottle IV 09/26/23 10:54 75 ml ONCE ONE Administration Ketorolac Tromethamine 15 mg 09/26/23 09:36 09/26/23 10:03 Ketorolac 30mg/Ml Vial IV 09/26/23 09:37 15 mg ONCE ONE Administration Ondansetron HCl 4 mg 09/26/23 09:36 09/26/23 10:03 Ondansetron 4mg/2ml Vial IV 09/26/23 09:37 4 mg ONCE ONE Administration Sodium Chloride 10 ml 09/26/23 10:53 09/26/23 10:54 Sodium Chloride 0.9% 10ml Syr (Rad Only) IV 09/26/23 10:54 10 ml ONCE ONE Administration ORDERS Category Date Time Status CT abdomen pelvis w con Stat Cat Scan 09/26/23 09:36 Completed Bilirubin,Direct Stat Lab 09/26/23 09:18 Completed CBC w/Auto Diff [Complete Blood Count Auto Diff] Stat Lab 09/26/23 09:18 Completed CMP [Comprehensive Metabolic Panel] Stat Lab 09/26/23 09:18 Completed Free T4 (Free Thyroxine) Stat Lab 09/26/23 09:18 Completed HCG Qualitative, Serum Stat Lab 09/26/23 09:18 Completed Lipase Stat Lab 09/26/23 09:18 Completed TSH [Thyroid Stimulating Hormone] Stat Lab 09/26/23 09:18 Completed Medical Decision Narrative: Cholecystitis, cholelithiasis, infectious diarrhea, enteritis, patient with history and exam per above presenting for evaluation of diffuse abdominal pain, mild in severity, nausea, vomiting Diagnoses considered include cholelithiasis, cholecystitis, fatty liver disease, hepatitis, enteritis, among others ED workup and treatment included: ED MEDICATIONS Discontinued Medications Generic Name Dose Route Start Last Admin Trade Name Freq PRN Reason Stop Dose Admin Belladonna Alkaloids 60 ml 09/26/23 09:36 09/26/23 10:03 Belladonna Alkaloids 60 Ml Ml PO 09/26/23 09:37 60 ml ONCE ONE Administration Lactated Ringer's 1,000 mls @ 999 mls/hr 09/26/23 09:36 09/26/23 10:03 Lactated Ringer's 1000 Ml Bag IV 09/26/23 10:36 999 mls/hr .Q1H1M ONE Administration Iopamidol 75 ml 09/26/23 10:53 09/26/23 10:54 Iopamidol-370 (76%);100ml Bottle IV 09/26/23 10:54 75 ml ONCE ONE Administration Ketorolac Tromethamine 15 mg 09/26/23 09:36 09/26/23 10:03 Ketorolac 30mg/Ml Vial IV 09/26/23 09:37 15 mg ONCE ONE Administration Ondansetron HCl 4 mg 09/26/23 09:36 09/26/23 10:03 Ondansetron 4mg/2ml Vial IV 09/26/23 09:37 4 mg ONCE ONE Administration Sodium Chloride 10 ml 09/26/23 10:53 09/26/23 10:54 Sodium Chloride 0.9% 10ml Syr (Rad Only) IV 09/26/23 10:54 10 ml ONCE ONE Administration ORDERS Category Date Time Status CT abdomen pelvis w con Stat Cat Scan 09/26/23 09:36 Completed Bilirubin,Direct Stat Lab 09/26/23 09:18 Completed CBC w/Auto Diff [Complete Blood Count Auto Diff] Stat Lab 09/26/23 09:18 Completed CMP [Comprehensive Metabolic Panel] Stat Lab 09/26/23 09:18 Completed Free T4 (Free Thyroxine) Stat Lab 09/26/23 09:18 Completed HCG Qualitative, Serum Stat Lab 09/26/23 09:18 Completed Lipase Stat Lab 09/26/23 09:18 Completed TSH [Thyroid Stimulating Hormone] Stat Lab 09/26/23 09:18 Completed Labs were independently interpreted by me, significant for AST 92, ALT 200, stable from prior Imaging was independently visualized and interpreted by me, significant for stable exam from prior, revealing colitis, no acute surgical pathology. Please refer to radiology report for full details. My clinical impression at this time is most consistent with chronic colitis for which patient has outpatient follow-up, she has had a HIDA scan in the past revealing no acute abnormality I discussed my clinical impression with patient and answered all questions. At this time, the evidence for any other entities in the differential is insufficient to warrant any further testing or ED observation. This was explained to the patient. The patient was advised that persistent or worsening symptoms require further evaluation. I confirmed the patient's understanding of this discussion. Critical Care Critical Care Time Critical Care Time: No
--- NOTE | 2023-09-26 09:29 | PC.NURSE ---
AT BS WITH ULTRASOUND
--- NOTE | 2023-09-26 09:36 | CT_ITS ---
FINAL REPORT CLINICAL HISTORY: diffuse abdominal pain, elevated liver enzymes COMPARISON: 01/03/2022 FINDINGS: CT OF THE ABDOMEN AND PELVIS WITH CONTRAST Axial CT images of the abdomen and pelvis were obtained after the administration of IV contrast. Coronal and sagittal reformatted images were also obtained and reviewed. This study was performed with techniques to keep radiation doses as low as reasonably achievable (ALARA). Individualized dose reduction techniques using automated exposure control or adjustment of mA and/or kV according to the patient's size were employed. Abdomen: A calcified granuloma is present in the right lung base.. The heart is normal in size. The liver has an unremarkable appearance, without evidence of mass or biliary ductal dilatation. There is mild nonspecific gallbladder wall thickening without evidence of stones. The spleen is unremarkable. No adrenal mass is present. The pancreas has an unremarkable appearance. The kidneys are normal, without evidence of mass or hydronephrosis. The aorta is normal in caliber. There is no free fluid or adenopathy. No mass or abnormal fluid collection is seen. There is mild diffuse colonic wall thickening worrisome for colitis. Pelvis: The appendix is not well-visualized. The urinary bladder is unremarkable. No inflammatory process is seen. There is no evidence of mass or adenopathy. There is a small umbilical hernia containing fat. There is no evidence of bowel obstruction. There are bilateral L5 pars defects in the lumbar spine, with grade 1 anterolisthesis of L5 on S1. IMPRESSION: Mild diffuse colon wall thickening, worrisome for colitis. Mild nonspecific gallbladder wall thickening without convincing evidence of stones. No biliary ductal dilatation is present. Reviewed, Interpreted and Dictated by Basil Amos III, MD Transcribed by Priya Kapoor Authenticated and [facility]
[2023-09-26 09:55] LABS: Basophils # 0.1 K/mm3 (0-0.2); Basophils % 0.5 % (0.1-2.0); Eosinophils % 0.2 % (0.1-12.0); Hematocrit 39.8 % (37.0-47.0); Hemoglobin 12.9 g/dL (12.2-16.2); Lymphocytes # 1.2 K/mm3 (0.7-4.5); Mean Corpuscular HGB Conc 32.3 g/dL (31.8-35.4); Mean Corpuscular Hemoglobin 29.8 pg (27.0-31.2); Mean Corpuscular Volume 92.3 fl (81-99); Mean Platelet Volume 8.9 fl (7.4-10.4); Monocytes # 0.4 K/mm3 (0.1-1.0); Monocytes % 3.9 % (1.7-9.3); Neutrophils # 8.9 K/mm3 (1.8-7.8); Neutrophils % 84.4 % (37.0-80.0); Platelet Count 226 K/mm3 (142-424); Red Blood Count 4.32 M/mm3 (4.20-5.40); White Blood Count 10.6 K/mm3 (4.8-10.8)
[2023-09-26 09:57] LABS: Chloride 107 mmol/L (98-107); Sodium 138 mmol/L (136-145)
[2023-09-26 09:58] LABS: Potassium 3.6 mmoL/L (3.5-5.1)
[2023-09-26 10:00] LABS: Alanine Aminotransferase 200 U/L (12-78); Alkaline Phosphatase 109 U/L (38-126); Anion Gap 9.6 mEq/L (5-15); Aspartate Amino Transferase 92 U/L (14-36); Bilirubin,Total 1.8 mg/dl (0.2-1.3); Blood Urea Nitrogen 4 mg/dl (7-17); Carbon Dioxide 25 mmol/L (22.0-30.0); Creatinine Clearance Estimated 147 mL/min (50-200); Estimated Glomerular Filt Rate 103 ml/min (>60); GFR (African American) 124 ML/MIN (>60)
[2023-09-26 10:01] LABS: Albumin/Globulin Ratio 1.4 (1.1-1.8); Bilirubin,Direct 0.1 mg/dl (0.0-0.4); Calcium 9.1 mg/dl (8.4-10.2); Globulin 2.9 g/dL (1.3-3.2); Glucose 108 mg/dl (74-100); Lipase 84 U/L (23-300); Total Protein,Serum 6.9 g/dl (6.3-8.2)
[2023-09-26] MEDS: ONDANSETRON 4MG/2ML VIAL 4 MG IV (10:03)
[2023-09-26] MEDS: BELLADONNA ALKALOIDS 60 ML ML PO (10:03)
[2023-09-26] MEDS: LACTATED RINGERS 1000ML 1,000 ML 999 ML IV (10:03)
[2023-09-26] MEDS: KETOROLAC 30MG/ML VIAL 15 MG IV (10:03)
[2023-09-26 10:13] VITALS: BP 138/88; PULSE 72; O2SAT 99
[2023-09-26 10:26] LABS: Free T4 (Free Thyroxine) 1.49 ng/dl (0.78-2.19)
[2023-09-26 10:32] LABS: HCG Qualitative, Serum Negative (Negative); Thyroid Stimulating Hormone 0.75 uIU/mL (0.465-4.68)
--- NOTE | 2023-09-26 10:48 | PC.NURSE ---
patient gone to CT at this time.
[2023-09-26] MEDS: IOPAMIDOL-370 (76%);100ML BOTTLE 75 ML IV (10:54)
[2023-09-26] MEDS: SODIUM CHLORIDE 0.9% 10ML SYR (RAD ONLY) 10 ML IV (10:54)
[2023-09-26 12:34] VITALS: BP 117/76; PULSE 72; RESP 18; TEMP 36.5; O2SAT 98
== END 2023-09-26 12:50 | disposition home or self-care (01) ==
PROVIDERS: Emergency Provider Emergency Medicine; PCP Physician Assistant
DX: R10.9 Unspecified abdominal pain (principal); R11.2 Nausea with vomiting, unspecified; F17.200 Nicotine dependence, unspecified, uncomplicated
CPT/HCPCS: 74177; 80053; 82248; 83690; 84439; 84443; 84703; 85025; 96361; 96374; 96375; 99285; J2405; Q9967

== ENCOUNTER 2024-02-04 09:10 | Emergency (ER) | payer OTHER, BC, SELFPAY ==
--- NOTE | 2024-02-04 09:15 | PC.NURSE ---
TRAUMA ALERT CALLED DR PAGE AT BEDSIDE
[2024-02-04 09:17] VITALS: BMI 24.0
[2024-02-04 09:25] VITALS: BP 130/88; PULSE 77; RESP 16; TEMP 36.6; O2SAT 97
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
--- NOTE | 2024-02-04 09:27 | CT_ITS ---
FINAL REPORT TECHNIQUE: Axial images through the pelvis were performed by computed tomography. Sagittal and coronal reconstruction images were performed. This study was performed with techniques to keep radiation doses as low as reasonably achievable (ALARA). Individualized dose reduction techniques using automated exposure control or adjustment of mA and/or kV according to the patient's size were employed. CLINICAL HISTORY: trauma, critical injury suspected COMPARISON: None FINDINGS: No fracture is identified. No dislocation identified. No significant degenerative changes identified. No soft tissue abnormality. IMPRESSION: No acute process. Reviewed, Interpreted and Dictated by Rogelio Latif MD Transcribed by Ethel Bowman Authenticated and [facility]
[2024-02-04 09:29] VITALS: BP 130/88
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
[2024-02-04] MEDS: ACETAMINOPHEN 1,000MG/100ML VIAL 1000 MG IV (09:33)
[2024-02-04] MEDS: LACTATED RINGERS 1000ML 1,000 ML 999 ML IV (09:34)
[2024-02-04] MEDS: KETOROLAC 30MG/ML VIAL 15 MG IV (09:34)
--- NOTE | 2024-02-04 09:35 | PC.NURSE ---
PT TO CT
[2024-02-04 09:46] LABS: Basophils # 0.1 K/mm3 (0-0.2); Basophils % 0.8 % (0.1-2.0); Eosinophils % 0.2 % (0.1-12.0); Hematocrit 43.5 % (37.0-47.0); Hemoglobin 14.4 g/dL (12.2-16.2); Lymphocytes # 1.2 K/mm3 (0.7-4.5); Lymphocytes % 14.6 % (10-50); Mean Corpuscular HGB Conc 33.2 g/dL (31.8-35.4); Mean Corpuscular Hemoglobin 29.7 pg (27.0-31.2); Mean Corpuscular Volume 89.5 fl (81-99); Mean Platelet Volume 8.8 fl (7.4-10.4); Monocytes # 0.5 K/mm3 (0.1-1.0); Monocytes % 5.7 % (1.7-9.3); Neutrophils # 6.5 K/mm3 (1.8-7.8); Neutrophils % 78.6 % (37.0-80.0); Platelet Count 256 K/mm3 (142-424); Red Blood Count 4.86 M/mm3 (4.20-5.40); Red Cell Distribution Width 14.8 % (11.5-17.5); White Blood Count 8.3 K/mm3 (4.8-10.8)
[2024-02-04 09:46] LABS: Lactate Venous 1.6 mmol/L (0.4-2.0); VBG Base Excess -5.6 mmol/L (-2.4-2.3); VBG HCO3 20.2 mmol/L (23-30); VBG Oxygen Saturation 80.8 % (50-70); VBG PCO2 38.2 mmol/L (35-51); VBG PH 7.34 mmol/L (7.31-7.41); VBG PO2 48.5 mmol/L (28-40); VBG Total CO2 21.4 mmol/L (23-27)
[2024-02-04 09:51] LABS: HCG Qualitative, Serum Negative (Negative)
[2024-02-04 09:53] LABS: INR 0.99 (0.9-1.1); Prothrombin Time 11.1 seconds (10.1-12.5)
[2024-02-04] MEDS: 0.9 % SODIUM CHLORIDE 50 ML VIAL IV ×2 (09:56)
[2024-02-04] MEDS: IOPAMIDOL-370 (76%);100ML BOTTLE 100 ML IV (09:56)
[2024-02-04] MEDS: SODIUM CHLORIDE 0.9% 10ML SYR (RAD ONLY) 10 ML IV (09:56)
[2024-02-04] MEDS: IOPAMIDOL-370 (76%);100ML BOTTLE 80 ML IV (09:57)
[2024-02-04 10:10] LABS: Alanine Aminotransferase 18 U/L (12-78); Albumin Level 4.8 g/dl (3.5-5.0); Albumin/Globulin Ratio 1.4 (1.1-1.8); Alkaline Phosphatase 108 U/L (38-126); Anion Gap 15.1 mEq/L (5-15); Aspartate Amino Transferase 26 U/L (14-36); Bilirubin,Total 2.9 mg/dl (0.2-1.3); Blood Urea Nitrogen 10 mg/dl (7-17); Calcium 9.6 mg/dl (8.4-10.2); Carbon Dioxide 19 mmol/L (22.0-30.0); Chloride 108 mmol/L (98-107); Creatinine Clearance Estimated 109 mL/min (50-200); Estimated Glomerular Filt Rate 88 ml/min (>60); GFR (African American) 107 ML/MIN (>60); Globulin 3.4 g/dL (1.3-3.2); Glucose 88 mg/dl (74-100); Lipase 102 U/L (23-300); Potassium 4.1 mmoL/L (3.5-5.1); Sodium 138 mmol/L (136-145); Total Protein,Serum 8.2 g/dl (6.3-8.2)
--- NOTE | 2024-02-04 10:17 | ECG_ITS ---
APPROVED REPORT Exam: Resting ECG HR:102 bpm ECG Measurements Heart Rate 102 AXES PA 147 P 72 QRSd 87 QRS 92 QT 341 T 82 QTc 400 Conclusion SINUS TACHYCARDIA BORDERLINE RIGHT AXIS DEVIATION [QRS AXIS > 90] ABNORMAL RHYTHM ECG Electronically signed by : NEAL PAGE, 02/05/2024 22:08:35
--- NOTE | 2024-02-04 11:40 | PC.NURSE ---
PT PROVIDED DRINK AND CRACKERS, REPORTS HEADACHE. DR PAGE NOTIFIED
[2024-02-04] MEDS: METHOCARBAMOL 500MG TABLET 500 MG PO (11:46)
[2024-02-04] MEDS: METOCLOPRAMIDE HCL 10MG/2ML VIAL 5 MG IVP (11:46)
[2024-02-04 11:52] VITALS: BP 129/76
--- NOTE | 2024-02-04 11:53 | PC.NURSE ---
pt ambulated with no issues. pt tolerated with no complaints.
[2024-02-04 12:00] VITALS: BP 117/73
--- NOTE | 2024-02-04 12:11 | PC.NURSE ---
DR PAGE AT BEDSIDE TO REEVALUATE PT
[2024-02-04 12:31] VITALS: BP 117/73; PULSE 87; RESP 16; TEMP 36.6; O2SAT 98
== END 2024-02-04 12:33 | disposition home or self-care (01) ==
PROVIDERS: Emergency Provider Emergency Medicine; PCP Family Medicine
DX: M43.17 Spondylolisthesis, lumbosacral region (principal); S13.4XXA Sprain of ligaments of cervical spine, initial encounter; R51.9 Headache, unspecified; M25.561 Pain in right knee; R20.0 Anesthesia of skin; R00.0 Tachycardia, unspecified; F17.210 Nicotine dependence, cigarettes, uncomplicated; V47.5XXA Car driver injured in collision with fixed or stationary object in traffic accident, initial encounter; Y92.410 Unspecified street and highway as the place of occurrence of the external cause
CPT/HCPCS: 70450; 70496; 70498; 71275; 72125; 72128; 72131; 72192; 73502; 73552; 73560; 73590; 74174; 80053; 82803; 83690; 84703; 85025; 85610; 85730; 93005; 96361; 96374; 96375; 99285; J0131; J1885; J2765; J7120; Q9967

== ENCOUNTER 2024-03-16 07:19 | Outpatient (CLI) | payer BC, SELFPAY ==
--- NOTE | 2024-03-16 07:26 | MR_ITS ---
FINAL REPORT CLINICAL HISTORY: RIGHT UPPER QUANDRANT PAIN. ABD PAIN. VOMITING COMPARISON: None FINDINGS: Multiplanar MR imaging of the abdomen was performed without contrast. MRCP was also performed and 3D images were obtained and reviewed. Images of the liver reveal no evidence of mass. There is no evidence of biliary ductal dilatation. The gallbladder has an unremarkable appearance. No other mass or adenopathy is identified. IMPRESSION: Unremarkable exam. Reviewed, Interpreted and Dictated by Basil Amos III, MD Transcribed by Ethel Bowman Authenticated and [facility]
[2024-03-16 09:41] LABS: Alanine Aminotransferase 12 U/L (12-78); Albumin Level 3.9 g/dl (3.5-5.0); Albumin/Globulin Ratio 1.4 (1.1-1.8); Alkaline Phosphatase 85 U/L (38-126); Aspartate Amino Transferase 21 U/L (14-36); Bilirubin,Total 1.9 mg/dl (0.2-1.3); Blood Urea Nitrogen 6 mg/dl (7-17); Carbon Dioxide 26 mmol/L (22.0-30.0); Chloride 107 mmol/L (98-107); Estimated Glomerular Filt Rate 103 ml/min (>60); GFR (African American) 124 ML/MIN (>60); Globulin 2.8 g/dL (1.3-3.2); Glucose 89 mg/dl (74-100); Lipase 74 U/L (23-300); Sodium 139 mmol/L (136-145); Total Protein,Serum 6.7 g/dl (6.3-8.2)
[2024-03-17 08:31] LABS: HBsAg Screen Negative (Negative); HCV Ab Non Reactive (Non Reactive); Hep A Ab, IGM Negative (Negative); Hep B Core Ab, IgM Negative (Negative)
== END 2024-03-16 23:59 | disposition home or self-care (01) ==
LOC: RAD 07:20
PROVIDERS: PCP Physician Assistant; Visit Provider Physician Assistant
DX: R10.11 Right upper quadrant pain (principal); R74.8 Abnormal levels of other serum enzymes; R17 Unspecified jaundice; K52.9 Noninfective gastroenteritis and colitis, unspecified
CPT/HCPCS: 36415; 74181; 76376; 80053; 80074; 83690

== ENCOUNTER 2024-06-21 13:26 | Day surgery (SDC) | payer BC, SELFPAY ==
--- NOTE | 2024-06-21 13:45 | P.PNANES_ITS ---
[facility] Disclaimer: The information contained in this section may have been updated after the patient was seen, as this information can be updated by other users. Medical History Major depressive disorder Surgical History History of right oophorectomy Family History Grandmother Cancer Stroke Grandfather Cancer Stroke Father Hypertension Diabetes Social History Smoking Status: Former smoker second hand exposure: No alcohol intake: current alcohol intake frequency: holidays/special occasions only counseling given: No (no drinking right now; cause she is ) substance use type: denies use counseling given: No current occupational status: employed Travel in the last 8 weeks: None adopted: No caregiver/support person: Yes (for her 19 month old son) foster care: No household members: spouse, family and children housing: house lives independently: Yes marital status: number of children: 1 number of grandchildren: 0 education level: high school 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[employer]; 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 Hx Recent Travel: No sexually active: Yes are you practicing safe sex: Yes caffeine: Yes physical activity: none austin/orthodoxy: None special austin needs: No working smoke detector in home: Yes fire extinguisher in home: No carbon monox detector in home: No firearms in home: Yes firearms unloaded and locked: Yes do you feel safe at home: Yes victim of physical abuse: No victim of emotional abuse: No victim of sexual abuse: No would you like helpful sources: No [facility] Anesthesia Checklist Patient Identification Patient Identification: Arm Band and Verbal (Name & ) Structural Data Admitted From: Home Planned Operative Procedure/s: EGD Consent for Planned Operative Procedure(s) Verified: Yes Verified Documents: Surgical Consent and History and Physical NPO Status Verified Time NPO: 00:00 Additional verifications Anesthesia Reactions: No Airway Assessment Mallampati Score:: Class II C-Spine Mobility Assessed: Yes TMJ Mobility Assessed: Yes Dentition: Good Dentition Neurological Assessment Level of Consciousness: Awake Hx Seizures: No Numbness or tingling in extremities: No Anesthesia Plan Anesthesia Risk discussed: Yes Anesthesia Plan: Verified ASA Class: II Anesthesia Type: MAC
[2024-06-21 13:51] VITALS: BP 129/87; PULSE 90; RESP 16; TEMP 36.7; O2SAT 100; BMI 24.7
[2024-06-21 14:11] LABS: Urine Pregnancy, HCG Qual. Negative (Negative)
[2024-06-21 15:00] LABS: Albumin Level 4.6 g/dl (3.5-5.0); Chloride 107 mmol/L (98-107); Potassium 3.9 mmoL/L (3.5-5.1); Sodium 140 mmol/L (136-145)
--- NOTE | 2024-06-21 15:01 | P.HP_ITS ---
History of Present Illness *Admission Date: 06/21/24 *Reason for visit:: Diarrhea, change in bowel habits, weight loss *History of present illness: Ms. Felder is a 24-year-old female who is here for diagnostic colonoscopy secondary to diarrhea, loss of appetite and weight loss. The examination is deemed medically necessary for diagnostic colonoscopy. The patient has been seen, interviewed and examined prior to the procedure by both myself and the anesthesia provider. [facility] Disclaimer: The information contained in this section may have been updated after the patient was seen, as this information can be updated by other users. Medical History Major depressive disorder Surgical History History of right oophorectomy Family History Grandmother Cancer Stroke Grandfather Cancer Stroke Father Hypertension Diabetes Social History Smoking Status: Former smoker second hand exposure: No alcohol intake: current alcohol intake frequency: holidays/special occasions only counseling given: No (no drinking right now; cause she is ) substance use type: denies use counseling given: No current occupational status: employed Travel in the last 8 weeks: None adopted: No caregiver/support person: Yes (for her 19 month old son) foster care: No household members: spouse, family and children housing: house lives independently: Yes marital status: number of children: 1 number of grandchildren: 0 education level: high school 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[employer]; 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 Hx Recent Travel: No sexually active: Yes are you practicing safe sex: Yes caffeine: Yes physical activity: none austin/jewish: None special austin needs: No working smoke detector in home: Yes fire extinguisher in home: No carbon monox detector in home: No firearms in home: Yes firearms unloaded and locked: Yes do you feel safe at home: Yes victim of physical abuse: No victim of emotional abuse: No victim of sexual abuse: No would you like helpful sources: No Other Medical History Have you received the Flu Vaccine for this season: Yes Have you received the Pneumonia Vaccine: No Review of Systems Review of Systems Review of systems (narrative): Negative *Cardiovascular Comments: Negative *Gastrointestinal Comments: Negative *Genitourinary Comments: Negative *Musculoskeletal Comments: Negative *Neurologic Comments: Negative Meds Home Medications and Allergies Home Medications ?Medication ?Instructions ?Recorded ?Confirmed ?Type fluoxetine 10 mg capsule 10 mg PO DAILY 05/18/24 06/21/24 History New Prescriptions to Start Prescriptions: Allergies Allergy/AdvReac Type Severity Reaction Status Date / Time butorphanol (From Stadol) Allergy shortness Verified 06/21/24 13:51 of breath Exam Data for Last 24 hours Vital signs and Labs for Last 24 Hours: Temp Pulse Resp BP Pulse Ox O2 Del Method 98.0 F 90 16 129/87 100 Room Air 06/21/24 13:51 06/21/24 13:51 06/21/24 13:51 06/21/24 13:51 06/21/24 13:51 06/21/24 13:51 Laboratory Results - last 24 hr 06/21/24 13:33: Urine HCG, Qual Negative 06/21/24 14:13: Sodium 140, Potassium 3.9, Chloride 107, Albumin 4.6 I & O for Last 24 hours: Intake & Output 06/18/24 06/19/24 06/20/24 06/21/24 23:59 23:59 23:59 23:59 Weight 135 lb *Routine HEENT Exam Head: Present normocephalic Eye: Present EOMI and PERRL ENT: Present mucous membranes moist *Routine Neck Exam Neck: Present supple *Routine Respiratory Exam Respiratory: Present CTA bilaterally *Routine Cardiovascular Exam Cardiovascular: Present RRR *Routine Abdominal Exam Abdominal: Present soft and normoactive bowel sounds; Absent tenderness *Routine Rectal Exam Rectal:: deferred *Routine Genitalia Exam Genitalia:: deferred *Routine Extremities Exam Extremities: Absent cyanosis, clubbing or edema *Routine Skin Exam Skin: Present warm; Absent rash *Routine Neurological Exam Neurological: Present alert and oriented X3 Assessment and Plan *Assessment and plan (1) Diarrhea: Status: Acute Category: Medical Code(s): R19.7 - Diarrhea, unspecified (2) Loss of appetite: Status: Acute Category: Medical Code(s): R63.0 - Anorexia (3) Weight loss: Status: Acute Category: Medical Code(s): R63.4 - Abnormal weight loss Plan A/P: 1. Diarrhea, weight loss, loss of appetite is the preprocedural diagnosis. The patient will be anesthetized/sedated using MAC sedation. The patient has been seen and examined. Cardiac and lung assessment prior to the examination is stable. Proceed with planned diagnostic colonoscopy
[2024-06-21 15:02] LABS: Blood Urea Nitrogen 9 mg/dl (7-17); Creatinine Clearance Estimated 104 mL/min (50-200); Estimated Glomerular Filt Rate 87 ml/min (>60); GFR (African American) 106 ML/MIN (>60)
[2024-06-21 15:03] LABS: Alanine Aminotransferase 14 U/L (12-78); Albumin/Globulin Ratio 1.5 (1.1-1.8); Alkaline Phosphatase 100 U/L (38-126); Anion Gap 13.9 mEq/L (5-15); Aspartate Amino Transferase 24 U/L (14-36); Bilirubin,Direct 0.4 mg/dl (0.0-0.4); Bilirubin,Indirect 1.3 mg/dL (0.0-0.9); Bilirubin,Total 1.7 mg/dl (0.2-1.3); Calcium 9.1 mg/dl (8.4-10.2); Carbon Dioxide 23 mmol/L (22.0-30.0); Globulin 3.1 g/dL (1.3-3.2); Glucose 88 mg/dl (74-100); Total Protein,Serum 7.7 g/dl (6.3-8.2)
[2024-06-21 15:09] VITALS: O2SAT 100
--- NOTE | 2024-06-21 15:09 | HMH.PROCNOTE ---
[facility] Procedure Note Date: 06/21/24 Time: 15:16 Procedure Note:: Upper Endoscopy Procedure Report: Esophagogastroduodenoscopy with cold biopsies Endoscopost: Jg Travis II, MD Referring Physician: Michelle Nino PA-C Date of Procedure: June 21, 2024 Equipment: Olympus GIF 190 standard upper endoscope Sedation: MAC sedation Indications: Ms. Felder is a 24-year-old female who is here for diagnostic upper endoscopy. The patient does report persistent nausea and lack of appetite. She has lost 60 pounds in the last 6 months. She did have a [facility] which was normal. She does report fairly significant postprandial urgency and diarrhea. She was having some right upper quadrant abdominal pain. The patient has had abdominal ultrasound and MRCP that were normal and showed normal gallbladder, liver and biliary system. The patient has had normal CBC with hemoglobin 14.4 and hematocrit 43.5. Her liver chemistries have been normal and she has had normal lipase (74). A prior PCR stool panel in October 2021 was normal and showed no microbial pathogens. Her p-ANCA was negative in March 2020. She does not use marijuana. 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 Procedure: Prior to the procedure, a history and physical exam was performed, and patient's medications and allergies were reviewed. The risks, benefits and alternatives of the sedation and procedure were discussed with the patient. All questions were answered and informed consent was obtained. The patient was brought to the procedure room. Patient identification and proposed procedure were verified by the physician and the nurse. The patient was placed in a left lateral decubitus position and the scope was passed under direct vision. Throughout the procedure, the patient's blood pressure, pulse, and oxygen saturations were monitored continuously. The upper GI endoscopy was accomplished without difficulty. The patient tolerated the procedure well. Findings: The scope was passed directly into the upper esophagus and advanced to the third portion of the duodenum. The post bulbar duodenum and duodenal bulb were normal with normal mucosa and conniventes. The ampulla was normal in appearance. Cold biopsies were taken from the first portion and duodenal bulb to rule out celiac disease. The scope was withdrawn through a normal duodenal bulb and pylorus into the stomach. There was some mild reactive gastropathy of the antrum. The remainder of the body and fundus of the stomach was normal. Upon retroflexion there was no hiatal hernia. Biopsies were taken from the antrum. The scope was then withdrawn into the esophagus. There was no evidence of reflux esophagitis or Cabrera's. The remainder of the esophageal mucosa was normal. Impression: 1. Minimal reactive gastropathy of prepyloric antrum Plan: I will follow-up the biopsies. We will discuss additional treatment options. I would consider adding a tricyclic (amitriptyline) which may help with the nausea and diarrhea.
[2024-06-21 15:19] VITALS: BP 117/71; PULSE 88; RESP 15; TEMP 36.4; O2SAT 100
[2024-06-21 15:29] VITALS: BP 114/77; PULSE 76; RESP 17; O2SAT 100
[2024-06-21 15:39] VITALS: BP 116/78; PULSE 74; RESP 16; O2SAT 100
[2024-06-21 15:49] VITALS: BP 113/74; PULSE 70; RESP 18; TEMP 36.6; O2SAT 100
== END 2024-06-21 15:50 | disposition home or self-care (01) ==
PROVIDERS: Nurse Practitioner Family; PCP Physician Assistant; Visit Provider Internal Medicine Gastroenterology
PROC: 0DJ08ZZ Inspection of Upper Intestinal Tract, Via Natural or Artificial Opening Endoscopic (ICD-10-PCS; CPT 43235; principal; 2024-06-21 15:00)
DX: R17 Unspecified jaundice (principal); R19.7 Diarrhea, unspecified; R63.0 Anorexia; R63.4 Abnormal weight loss; K58.0 Irritable bowel syndrome with diarrhea; R11.0 Nausea; K31.9 Disease of stomach and duodenum, unspecified; Z68.24 Body mass index [BMI] 24.0-24.9, adult
CPT/HCPCS: 43239; 80053; 81025; 82248

== ENCOUNTER 2024-07-08 11:12 | Outpatient (CLI) | payer BC, SELFPAY ==
[2024-07-08 11:57] LABS: Bilirubin,Direct 0.3 mg/dl (0.0-0.4); Bilirubin,Indirect 0.8 mg/dL (0.0-0.9); Bilirubin,Total 1.1 mg/dl (0.2-1.3); Bilirubin,Unconjugated 0.8 mg/dL (0.0-1.1)
[2024-07-09 12:08] LABS: Endomysial IgA Antibody Negative (Negative)
[2024-07-09 16:09] LABS: Deamidated Gliadin Abs, IgA 17 units (0-19); Deamidated Gliadin Abs, IgG 4 units (0-19); Tissue Transglutaminase IgA Ab <2 U/mL (0-3); Tissue Transglutaminase IgG Ab <2 U/mL (0-5)
[2024-07-10 07:08] LABS: Reticulin IgA Antibody Negative titer (Neg:<1:2.5)
== END 2024-07-08 23:59 | disposition home or self-care (01) ==
LOC: LAB 11:13
PROVIDERS: Nurse Practitioner Family; PCP Physician Assistant; Visit Provider Internal Medicine Gastroenterology
DX: R19.7 Diarrhea, unspecified (principal); R17 Unspecified jaundice
CPT/HCPCS: 36415; 82247; 82248; 83516; 86255; 86256

== ENCOUNTER 2024-08-03 11:55 | Emergency (ER) | payer BC, SELFPAY ==
--- NOTE | 2024-08-03 12:05 | XR_ITS ---
PROCEDURE INFORMATION: Exam: XR Chest Exam date and time: 08/03/2024 12:14 PM Age: 24 years old Clinical indication: Cough TECHNIQUE: Imaging protocol: Radiologic exam of the chest. Views: 2 views. PA and Lateral COMPARISON: CT ANGIO CHEST 02/04/2024 9:56 AM FINDINGS: Tubes, catheters and devices: None. Lungs: The lungs appear clear without pulmonary venous congestion. Pleural spaces: No pleural effusion. No pneumothorax. Heart/Mediastinum: Mediastinum and nando appear unremarkable. Bones/joints: No acute bony abnormality identified. IMPRESSION: No evidence for an acute cardiopulmonary process.
[2024-08-03 12:21] LABS: UTC Pregnancy Test, Urine Negative (Negative)
--- NOTE | 2024-08-03 12:26 | ED_ITS ---
Discharge Plan Disposition Patient Disposition: Home, Self-Care Condition: Good Prescriptions Prescriptions: New cefdinir 300 mg capsule 300 mg PO BID Qty: 20 0RF promethazine-DM 6.25-15 mg/5 mL Syrup 5 ml PO Q6H PRN (Reason: Cough) Qty: 240 0RF No Action fluoxetine 10 mg capsule 10 mg PO DAILY Patient Comments: TAKE ONE CAPSULE BY MOUTH EVERY DAY amitriptyline 10 mg tablet 10 mg PO BID Qty: 60 12RF Rx Instructions: Please take 1 tablet p.o. nightly x 5 to 7 days and then 1 tablet p.o. twice daily thereafter Referrals Follow up/Referrals: Michelle Nino PA [Primary Care Provider] - See instructions Activity Restrictions/Add. Instructions Additional Instructions/Restrictions: Drink plenty of fluids. Take tylenol or ibuprofen for pain or fever. Take the medications as directed. Stop the azithromycin (antibiotics) that you are on, start the cefdinir that we prescribed today. Finish the medol dose pack (steroids-methylprednisone) that you are on. The cough medication (promethazine dm) will make you drowsy, so don't drive or operate heavy machinery after taking it. Follow up with your regular doctor. GO TO THE ER FOR ANY WORSENING SYMPTOMS Clinical Impressions Clinical Impression: Acute bronchitis, Acute viral syndrome Instructions Patient Instructions: Promethazine, Cefdinir Print Language Print Language: Czech Discharge ED Provider: Raciel Obrien [facility] HPI General Stated complaint: cough, congestion, coughing up blood Time Seen by Provider: 08/03/24 12:26 History of Present Illness Provider Complaint: She states that for the past 1 month she has had a cough, sinus congestion, pleuritic chest pain. At this time, she has also started to notice streaks of bright red blood in her sputum at times. She does have a history of getting pneumonia at times. She denies any fever/chills. She saw her pcp last week and she was prescribed oral steroids and a z-pack. She states she has almost finished these medications and they have not helped at all. Related Data Home Medications ?Medication ?Instructions ?Recorded ?Confirmed fluoxetine 10 mg capsule 10 mg PO DAILY 05/18/24 08/03/24 Previous Rx's ?Medication ?Instructions ?Recorded amitriptyline 10 mg tablet 10 mg PO BID #60 tabs 06/21/24 cefdinir 300 mg capsule 300 mg PO BID #20 caps 08/03/24 promethazine-DM 6.25 mg-15 mg/5 mL 5 ml PO Q6H PRN Cough #240 mL 08/03/24 oral syrup Allergies Allergy/AdvReac Type Severity Reaction Status Date / Time butorphanol (From Stadol) Allergy shortness Verified 06/21/24 13:51 of breath PFSH PFSH Disclaimer: The information contained in this section may have been updated after the patient was seen, as this information can be updated by other users. Medical History (Updated 08/03/24 @ 13:44 by Raciel Obrien APRN) Diarrhea Major depressive disorder Surgical History History of right oophorectomy Family History Grandmother Cancer Stroke Grandfather Cancer Stroke Father Hypertension Diabetes Social History Smoking Status: Former smoker second hand exposure: No alcohol intake: current alcohol intake frequency: holidays/special occasions only counseling given: No (no drinking right now; cause she is ) substance use type: denies use counseling given: No current occupational status: employed Travel in the last 8 weeks: None adopted: No caregiver/support person: Yes (for her 19 month old son) foster care: No household members: spouse, family and children housing: house lives independently: Yes marital status: number of children: 1 number of grandchildren: 0 education level: high school 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[employer]; 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 Hx Recent Travel: No sexually active: Yes are you practicing safe sex: Yes caffeine: Yes physical activity: none austin/congregation: None special austin needs: No working smoke detector in home: Yes fire extinguisher in home: No carbon monox detector in home: No firearms in home: Yes firearms unloaded and locked: Yes do you feel safe at home: Yes victim of physical abuse: No victim of emotional abuse: No victim of sexual abuse: No would you like helpful sources: No Have you lived/traveled outside [place] in past 30 days?: No Contact w/someone who lives/traveled outside [place] past 30 days?: No Exposure to someone with infectious disease in past 14 days?: No Do you have a fever (greater than 100.4 F or 38 C)?: No Have you tested positive for COVID-19: No Exposed to someone with COVID-19 in past 14 days?: No Do you have a sore throat?: Yes Do you have a cough?: Yes Do you have any weakness?: No Do you have any diarrhea?: No Are you experiencing any unusual bleeding?: No Do you have any muscle aches/pain?: No Do you have any abdominal pain?: No Are you experiencing loss of taste or smell?: No ROS Obtained: Yes All systems reviewed & no additional complaints except as documented Constitutional Constitutional: Reports poor appetite Eyes Eyes: Reports system reviewed and no additional complaints, except as documented ENT Ears, Nose, Mouth, and Throat: Reports as per HPI Cardiovascular Cardiovascular: Reports system reviewed and no additional complaints, except as documented and Denies chest pain Respiratory Respiratory: Denies shortness of breath, Reports chest congestion, Reports cough, Denies stridor and Denies wheezing Gastrointestinal Gastrointestingal: Reports system reviewed and no additional complaints, except as documented; Denies abdominal pain, diarrhea or vomiting Musculoskeletal Musculoskeletal: Reports system reviewed and no additional complaints, except as documented and Denies arthralgias Integumentary/Breasts Skin/Breast: Reports system reviewed and no additional complaints, except as documented and Denies rash Neurologic Neurologic: Denies paresthesias Allergic/Immunologic Allergic/Immunologic: Denies wheezing Physical Exam General General appearance: alert and in no apparent distress Head Head exam: atraumatic, normocephalic and normal inspection Eye Eye exam: Present normal appearance, PERRL and EOMI ENT ENT exam: Present normal exam, normal oropharynx, mucous membranes moist, TM's normal bilaterally and normal external ear exam Neck Neck exam: Present normal inspection, full ROM and trachea midline; Absent meningismus or lymphadenopathy Chest Chest inspection: Present normal inspection and symmetric chest wall rise; Absent tenderness Respiratory Respiratory exam: Present normal lung sounds bilaterally; Absent respiratory distress Cardiovascular Cardiovascular exam: Present regular rate and normal rhythm; Absent JVD Abdominal Exam Abdominal exam: Present soft and normal bowel sounds; Absent distention, tenderness or guarding Extremities Exam Extremities exam: Present normal inspection, full ROM and normal capillary refill; Absent calf tenderness Back Exam Back exam: Present normal inspection; Absent tenderness Neurological Exam Neurological exam: Present alert and oriented X3 Psychiatric Psychiatric exam: Present normal affect and normal mood Skin Skin exam: Present warm, dry, intact and normal color Lymphatic Lymphatic Findings: no adenopathy Medical Decision Making Medical Records Medical records reviewed: No I reviewed the patient's medical records. Screening: Per USPSTF and CDC recommendations, given the prevalence of disease in our region, it is our hospital?s policy to screen for HIV and viral Hepatitis for all patients aged 18 and over and those with ongoing risk factors. Bernardo Inquiry Pt receiving controlled substance: No Lab Data Lab results reviewed: Yes I reviewed the patient's lab results. Lab Results 08/03/24 12:11: [facility] Negative Orders (Tests/Meds): ORDERS Category Date Time Status Chest XR 2 view (NOT portable) [XR chest 2V] Stat Exams 08/03/24 12:05 Ordered Radiology Data #1: Image(s): Chest Image Reviewed: Yes I reviewed the patient's radiology image and Yes I have reviewed radiologist's interpretation Preliminary Findings: No Infiltrates Seen Accession No. : [id number] Patient Name / ID : LUCRECIA HOBBS / [id number] Exam Date : 07/03/2023 10:57:14 ( Final ) Study Comment : Sex / Age : F / 23Y Creator : BHARATHI MAYS Dictator : Continuing Education Dean : Washer Cutter : BHARATHI MAYS Approver2 : Report Date : 07/03/2023 11:46:55 My Comment : FINAL REPORT CLINICAL HISTORY: Shortness of breath COMPARISON: None FINDINGS: The heart size is normal. The mediastinum is normal. There is no focal infiltrate or edema. There are no pleural effusions. There is no pneumothorax. There is no osseous abnormality. IMPRESSION: No acute cardiopulmonary process Reviewed, Interpreted and Dictated by Bharathi Mays MD Transcribed by Ethel Bowman Authenticated and [facility]
[2024-08-03 12:31] VITALS: BP 142/97; PULSE 130; RESP 18; TEMP 36.6; O2SAT 97; BMI 24.8
[2024-08-03 13:44] VITALS: BP 142/97; PULSE 130; RESP 18; TEMP 36.6
[2024-08-03 14:04] LABS: Coronavirus 19, PCR Not Detected (NotDetected); Human Rhinovirus Not Detected (NotDetected); Influenza A, PCR Not Detected (NotDetected); Influenza B, PCR Not Detected (NotDetected); Respiratory Syncytial Virus Not Detected (NotDetected)
== END 2024-08-03 14:06 | disposition home or self-care (01) ==
PROVIDERS: Emergency Provider Nurse Practitioner Family; PCP Physician Assistant
DX: J20.9 Acute bronchitis, unspecified (principal); B34.9 Viral infection, unspecified
CPT/HCPCS: 71046; 81025; 87631; 99213; G0381

== ENCOUNTER 2024-10-11 11:59 | Emergency (ER) | payer BC, SELFPAY ==
[2024-10-11 12:04] VITALS: BP 129/91; PULSE 95; RESP 18; TEMP 36.6; O2SAT 100; BMI 23.7
--- NOTE | 2024-10-11 12:16 | HMH.EDGENADL ---
Discharge Plan Disposition Patient Disposition: Home, Self-Care Condition: Good Prescriptions Prescriptions: New cefdinir 300 mg capsule 300 mg PO BID 5 Days Qty: 10 0RF metoclopramide HCl [Reglan] 10 mg tablet 10 mg PO Q6H PRN (Reason: nausea and vomiting) Qty: 10 0RF No Action fluoxetine 10 mg capsule 10 mg PO DAILY Patient Comments: TAKE ONE CAPSULE BY MOUTH EVERY DAY amitriptyline 10 mg tablet 10 mg PO BID Qty: 60 12RF Rx Instructions: Please take 1 tablet p.o. nightly x 5 to 7 days and then 1 tablet p.o. twice daily thereafter cefdinir 300 mg capsule 300 mg PO BID Qty: 20 0RF promethazine-DM 6.25-15 mg/5 mL Syrup 5 ml PO Q6H PRN (Reason: Cough) Qty: 240 0RF Referrals Follow up/Referrals: Michelle Nino PA [Primary Care Provider] - See instructions Activity Restrictions/Add. Instructions Additional Instructions/Restrictions: I have sent in a prescription for both an antibiotic and antinausea medication to your pharmacy. If you have continued new or worsening signs or symptoms follow-up with your PCP or [facility] or return to the ER as needed. Clinical Impressions Clinical Impression: Nausea & vomiting Urinary tract infection Qualifiers: Urinary tract infection type: site unspecified Hematuria presence: with hematuria Qualified Code(s): N39.0 - Urinary tract infection, site not specified Print Language Print Language: Nepali Discharge ED Provider: Nestor Posadas General Adult HPI <DILEEP Herring - Last Filed: 10/11/24 14:21> General Chief complaint: Nausea/Vomiting/Diarrhea Stated complaint: 8 wks sent by ob poss. dehydration uti Time Seen by Provider: 10/11/24 12:14 Mode of Arrival: Ambulatory Source of Information: Patient Description of Symptoms (Recalled from ER Triage Doc. by RN): Pt presents for evaluation of potential dehydration because patient has been vomiting the last 2 days. Pt states she took a zofran this AM, but vomited it back up. Pt also expresses concern that she may have a UTI because she is having pain when she voids. Pt states she is 8 weeks pregant, and has care establish with [facility]. History of Present Illness HPI narrative: Patient presents for evaluation of 2 days of nausea vomiting. Patient reports that she is 8 weeks and has had nausea vomiting for 48 hours. She called her OB who told her to come to the emergency department for evaluation. She also states that she is having lower abdominal pain and burning and pain with urination. She denies any fever chills hemoptysis hematochezia melena hematemesis hematuria dysuria vaginal discharge. She reports that she has not had any diarrhea and is passing flatus. Related Data Home Medications ?Medication ?Instructions ?Recorded ?Confirmed fluoxetine 10 mg capsule 10 mg PO DAILY 05/18/24 08/03/24 Previous Rx's ?Medication ?Instructions ?Recorded amitriptyline 10 mg tablet 10 mg PO BID #60 tabs 06/21/24 cefdinir 300 mg capsule 300 mg PO BID #20 caps 08/03/24 promethazine-DM 6.25 mg-15 mg/5 mL 5 ml PO Q6H PRN Cough #240 mL 08/03/24 oral syrup cefdinir 300 mg capsule 300 mg PO BID 5 days #10 caps 10/11/24 metoclopramide HCl 10 mg tablet 10 mg PO Q6H PRN nausea and 10/11/24 (Reglan) vomiting #10 tabs Allergies Allergy/AdvReac Type Severity Reaction Status Date / Time butorphanol (From Stadol) Allergy shortness Verified 06/21/24 13:51 of breath [facility] <DILEEP Herring - Last Filed: 10/11/24 14:21> [facility] Disclaimer: The information contained in this section may have been updated after the patient was seen, as this information can be updated by other users. Medical History (Updated 10/11/24 @ 14:19 by DILEEP Herring) Diarrhea Major depressive disorder Surgical History History of right oophorectomy Family History Grandmother Cancer Stroke Grandfather Cancer Stroke Father Hypertension Diabetes Social History Smoking Status: Former smoker second hand exposure: No alcohol intake: current alcohol intake frequency: holidays/special occasions only counseling given: No (no drinking right now; cause she is ) substance use type: denies use counseling given: No current occupational status: employed Travel in the last 8 weeks: None adopted: No caregiver/support person: Yes (for her 19 month old son) foster care: No household members: spouse, family and children housing: house lives independently: Yes marital status: number of children: 1 number of grandchildren: 0 education level: high school 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[employer]; 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 Hx Recent Travel: No sexually active: Yes are you practicing safe sex: Yes caffeine: Yes physical activity: none austin/restoration: None special austin needs: No working smoke detector in home: Yes fire extinguisher in home: No carbon monox detector in home: No firearms in home: Yes firearms unloaded and locked: Yes do you feel safe at home: Yes victim of physical abuse: No victim of emotional abuse: No victim of sexual abuse: No would you like helpful sources: No Have you lived/traveled outside US in past 30 days?: No Contact w/someone who lives/traveled outside US past 30 days?: No Exposure to someone with infectious disease in past 14 days?: No Do you have a fever (greater than 100.4 F or 38 C)?: No Have you tested positive for COVID-19: No Exposed to someone with COVID-19 in past 14 days?: No Do you have a sore throat?: No Do you have a cough?: No Do you have any weakness?: No Do you have any diarrhea?: No Are you experiencing any unusual bleeding?: No Do you have any muscle aches/pain?: No Do you have any abdominal pain?: No Are you experiencing loss of taste or smell?: No Other Medical History Have you received the Flu Vaccine for this season: Yes Have you received the Pneumonia Vaccine: No <DILEEP Herring - Last Filed: 10/11/24 14:21> ROS Obtained: Yes Systems reviewed as appropriate & no additional complaints except as documented Physical Exam <DILEEP Herring - Last Filed: 10/11/24 14:21> General General appearance: alert and in no apparent distress Respiratory Respiratory exam: Present normal lung sounds bilaterally Cardiovascular Cardiovascular exam: Present regular rate Neurological Exam Neurological exam: Present alert and oriented X3 Medical Decision Making <DILEEP Herring - Last Filed: 10/11/24 14:21> Medical Records Medical records reviewed: Yes I reviewed the patient's medical records. Screening: Per USPSTF and CDC recommendations, given the prevalence of disease in our region, it is our hospital?s policy to screen for HIV and viral Hepatitis for all patients aged 18 and over and those with ongoing risk factors. Bernardo Inquiry Pt receiving controlled substance: No Vital Signs: 10/11/24 12:04 10/11/24 14:30 Temperature 98 F 98.1 F Temperature Source Temporal Artery Scan Oral Pulse Rate 90 Pulse Rate [Right] 95 H Respiratory Rate 18 18 Blood Pressure 126/80 Blood Pressure [Right Arm] 129/91 H Blood Pressure Mean [Right Arm] 103 Blood Pressure Source Automatic Cuff Blood Pressure Source [Right Arm] Automatic Cuff Blood Pressure Position Sitting Blood Pressure Position [Right Arm] Sitting 02 Sat by Pulse Oximetry 100 Oxygen Delivery Method Room Air Lab Data Lab results reviewed: Yes I reviewed the patient's lab results. Lab Results 10/11/24 12:10: Urine Color Yellow, Urine Appearance Clear, Urine pH 6.0, Ur Specific [place] <= 1.005, Urine Protein Negative, Urine Glucose (UA) Negative, Urine Ketones Negative, Urine Blood Negative, Urine Nitrate Negative, Urine Bilirubin Negative, Urine Urobilinogen 0.2, Ur Leukocyte Esterase 1+ A, Urine RBC None, Urine WBC 5-10, Ur Squamous Epith Cells 3-5, Urine Bacteria 1+ 10/11/24 12:38: WBC 5.8, RBC 4.08 L, Hgb 12.4, Hct 36.3 L, MCV 89.0, MCH 30.4, MCHC 34.2, RDW 12.6, Plt Count 214, MPV 10.7 H, Neut % (Auto) 70.2, Lymph % (Auto) 20.9, Izard % (Auto) 8.2, Eos % (Auto) 0.2, Baso % (Auto) 0.5, Neut # (Auto) 4.1, Lymph # (Auto) 1.2, Izard # (Auto) 0.5, Eos # (Auto) 0.0, Baso # (Auto) 0.0, Sodium 137, Potassium 3.4 L, Chloride 104, Carbon Dioxide 21 L, Anion Gap 15.4 H, BUN 5 L, Creatinine 0.60, Estimated Creat Clear 133, Estimated GFR 122, Est GFR ( Amer) 147, Glucose 96, Calcium 9.5, Total Bilirubin 2.0 H, AST 20, ALT 15, Alkaline Phosphatase 50, Total Protein 7.3, Albumin 4.2, Globulin 3.1, Albumin/Globulin Ratio 1.4, HCG, Quant [id number] H 10/11/24 12:38 10/11/24 12:38 Orders (Tests/Meds): ED MEDICATIONS Discontinued Medications Generic Name Dose Route Start Last Admin Trade Name Freq PRN Reason Stop Dose Admin Cefdinir 300 mg 10/11/24 14:16 10/11/24 14:25 Cefdinir 300mg Capsule PO 10/11/24 14:17 300 mg ONCE ONE Administration Sodium Chloride 1,000 mls @ 999 mls/hr 10/11/24 12:54 10/11/24 13:14 Sod Chlor 0.9% 1000ml Bag IV 10/11/24 13:54 999 mls/hr .Q1H1M ONE Administration Metoclopramide HCl 10 mg 10/11/24 12:53 10/11/24 13:14 Metoclopramide Hcl 10mg/2ml Vial IVP 10/11/24 12:54 10 mg ONCE ONE Administration ORDERS Category Date Time Status CBC w/Auto Diff [Complete Blood Count Auto Diff] Stat Lab 10/11/24 12:38 Completed CMP [Comprehensive Metabolic Panel] Stat Lab 10/11/24 12:38 Completed HCG,Quantitative Stat Lab 10/11/24 12:38 Completed Urinalysis and Microscopic Stat Lab 10/11/24 12:10 Completed Urine Culture Stat Micro 10/11/24 12:10 Received Medical Decision Narrative: In summary patient is a 24-year-old female who presents to the emergency department for evaluation of dysuria and nausea vomiting. Patient is normotensive with a blood pressure 129/91 heart rates 95 with normal sinus rhythm on the bedside monitor breathing 18 times a minute satting 100% room air upon arrival, afebrile at 98. Physical exam is remarkable for mild abdominal discomfort on palpation in the bilateral lower quadrants but there is no rebound or guarding no rigidity bowel sounds normal active. Breath sounds clear and equal bilaterally to the bases with adventitious sounds. Differential diagnosis includes hyperemesis of versus gastroenteritis versus urinary tract infection etc. Initial workup will be conducted with hematologic labs quantitative hCG urinalysis. Initial interventions include crystalloid bolus and Reglan. Initial workup reviewed by me and patient does indeed have a urinary tract infection and her hematologic labs are nonactionable.. Upon repeat evaluation patient is tolerating oral intake. Given this patient is appropriate for discharge with prescription for Omnicef with first dose given here and a prescription for Reglan sent to her pharmacy. Patient advised to follow-up with PCP or [facility] if she has continued new or worsening signs or symptoms or return to the ER as needed. <Nestor Posadas MD - Last Filed: 10/12/24 07:20> Vital Signs: 10/11/24 12:04 10/11/24 14:30 Temperature 98 F 98.1 F Temperature Source Temporal Artery Scan Oral Pulse Rate 90 Pulse Rate [Right] 95 H Respiratory Rate 18 18 Blood Pressure 126/80 Blood Pressure [Right Arm] 129/91 H Blood Pressure Mean [Right Arm] 103 Blood Pressure Source Automatic Cuff Blood Pressure Source [Right Arm] Automatic Cuff Blood Pressure Position Sitting Blood Pressure Position [Right Arm] Sitting 02 Sat by Pulse Oximetry 100 Oxygen Delivery Method Room Air Lab Data Lab Results 10/11/24 12:10: Urine Color Yellow, Urine Appearance Clear, Urine pH 6.0, Ur Specific [place] <= 1.005, Urine Protein Negative, Urine Glucose (UA) Negative, Urine Ketones Negative, Urine Blood Negative, Urine Nitrate Negative, Urine Bilirubin Negative, Urine Urobilinogen 0.2, Ur Leukocyte Esterase 1+ A, Urine RBC None, Urine WBC 5-10, Ur Squamous Epith Cells 3-5, Urine Bacteria 1+ 10/11/24 12:38: WBC 5.8, RBC 4.08 L, Hgb 12.4, Hct 36.3 L, MCV 89.0, MCH 30.4, MCHC 34.2, RDW 12.6, Plt Count 214, MPV 10.7 H, Neut % (Auto) 70.2, Lymph % (Auto) 20.9, Izard % (Auto) 8.2, Eos % (Auto) 0.2, Baso % (Auto) 0.5, Neut # (Auto) 4.1, Lymph # (Auto) 1.2, [place] # (Auto) 0.5, Eos # (Auto) 0.0, Baso # (Auto) 0.0, Sodium 137, Potassium 3.4 L, Chloride 104, Carbon Dioxide 21 L, Anion Gap 15.4 H, BUN 5 L, Creatinine 0.60, Estimated Creat Clear 133, Estimated GFR 122, Est GFR ( Amer) 147, Glucose 96, Calcium 9.5, Total Bilirubin 2.0 H, AST 20, ALT 15, Alkaline Phosphatase 50, Total Protein 7.3, Albumin 4.2, Globulin 3.1, Albumin/Globulin Ratio 1.4, HCG, Quant [id number] H Orders (Tests/Meds): ED MEDICATIONS Discontinued Medications Generic Name Dose Route Start Last Admin Trade Name Freq PRN Reason Stop Dose Admin Cefdinir 300 mg 10/11/24 14:16 10/11/24 14:25 Cefdinir 300mg Capsule PO 10/11/24 14:17 300 mg ONCE ONE Administration Sodium Chloride 1,000 mls @ 999 mls/hr 10/11/24 12:54 10/11/24 13:14 Sod Chlor 0.9% 1000ml Bag IV 10/11/24 13:54 999 mls/hr .Q1H1M ONE Administration Metoclopramide HCl 10 mg 10/11/24 12:53 10/11/24 13:14 Metoclopramide Hcl 10mg/2ml Vial IVP 10/11/24 12:54 10 mg ONCE ONE Administration ORDERS Category Date Time Status CBC w/Auto Diff [Complete Blood Count Auto Diff] Stat Lab 10/11/24 12:38 Completed CMP [Comprehensive Metabolic Panel] Stat Lab 10/11/24 12:38 Completed HCG,Quantitative Stat Lab 10/11/24 12:38 Completed Urinalysis and Microscopic Stat Lab 10/11/24 12:10 Completed Urine Culture Stat Micro 10/11/24 12:10 Received Medical Decision Narrative: In summary patient is a 24-year-old female who presents to the emergency department for evaluation of dysuria and nausea vomiting. Patient is normotensive with a blood pressure 129/91 heart rates 95 with normal sinus rhythm on the bedside monitor breathing 18 times a minute satting 100% room air upon arrival, afebrile at 98. Physical exam is remarkable for mild abdominal discomfort on palpation in the bilateral lower quadrants but there is no rebound or guarding no rigidity bowel sounds normal active. Breath sounds clear and equal bilaterally to the bases with adventitious sounds. Differential diagnosis includes hyperemesis of versus gastroenteritis versus urinary tract infection etc. Initial workup will be conducted with hematologic labs quantitative hCG urinalysis. Initial interventions include crystalloid bolus and Reglan. Initial workup reviewed by me and patient does indeed have a urinary tract infection and her hematologic labs are nonactionable.. Upon repeat evaluation patient is tolerating oral intake. Given this patient is appropriate for discharge with prescription for Omnicef with first dose given here and a prescription for Reglan sent to her pharmacy. Patient advised to follow-up with PCP or [facility] if she has continued new or worsening signs or symptoms or return to the ER as needed. I was consulted by the LILLY, and we discussed the complexity of the problems being addressed. I approved the treatment and management plan for this patient's care in the Emergency Department, thus performing a substantive portion of the medical decision making. Nestor Posadas MD Critical Care <DILEEP Herring - Last Filed: 10/11/24 14:21> Critical Care Time Critical Care Time: No
[2024-10-11 12:18] LABS: Microscopic, Urine URINE MICROSCOPIC (MICROSCOPIC)
[2024-10-11 12:38] LABS: Appearance,Urine CLEAR (Clear); Bilirubin,Urine Negative (Negative); Blood, Urine Negative (Negative); Color,Urine YELLOW (Yellow); Glucose,Urine (UA) Negative (Negative); Ketones,Urine Negative (Negative); Leukocyte Esterase,Urine 1+ (Negative); Nitrate,Urine Negative (Negative); Protein,Urine Negative (Negative); Specific Gravity, Urine <= 1.005 (1.005-1.030); Urobilinogen,Urine 0.2 EU/dl (0.2)
[2024-10-11 12:55] LABS: Basophils % 0.5 % (0.1-2.0); Eosinophils % 0.2 % (0.1-12.0); Hematocrit 36.3 % (37.0-47.0); Hemoglobin 12.4 g/dL (12.2-16.2); Lymphocytes # 1.2 K/mm3 (0.7-4.5); Lymphocytes % 20.9 % (10-50); Mean Corpuscular HGB Conc 34.2 g/dL (31.8-35.4); Mean Corpuscular Hemoglobin 30.4 pg (27.0-31.2); Mean Platelet Volume 10.7 fl (7.4-10.4); Monocytes # 0.5 K/mm3 (0.1-1.0); Monocytes % 8.2 % (1.7-9.3); Neutrophils # 4.1 K/mm3 (1.8-7.8); Neutrophils % 70.2 % (37.0-80.0); Platelet Count 214 K/mm3 (142-424); Red Blood Count 4.08 M/mm3 (4.20-5.40); Red Cell Distribution Width 12.6 % (11.5-17.5); White Blood Count 5.8 K/mm3 (4.8-10.8)
[2024-10-11] MEDS: 0.9 % SODIUM CHLORIDE 1000ML 1,000 ML 999 ML IV (13:14)
[2024-10-11] MEDS: METOCLOPRAMIDE HCL 10MG/2ML VIAL 10 MG IVP (13:14)
[2024-10-11 13:17] LABS: Alanine Aminotransferase 15 U/L (12-78); Albumin Level 4.2 g/dl (3.5-5.0); Albumin/Globulin Ratio 1.4 (1.1-1.8); Alkaline Phosphatase 50 U/L (38-126); Anion Gap 15.4 mEq/L (5-15); Aspartate Amino Transferase 20 U/L (14-36); Blood Urea Nitrogen 5 mg/dl (7-17); Calcium 9.5 mg/dl (8.4-10.2); Carbon Dioxide 21 mmol/L (22.0-30.0); Chloride 104 mmol/L (98-107); Creatinine Clearance Estimated 133 mL/min (50-200); Estimated Glomerular Filt Rate 122 ml/min (>60); GFR (African American) 147 ML/MIN (>60); Globulin 3.1 g/dL (1.3-3.2); Glucose 96 mg/dl (74-100); Potassium 3.4 mmoL/L (3.5-5.1); Sodium 137 mmol/L (136-145); Total Protein,Serum 7.3 g/dl (6.3-8.2)
[2024-10-11 13:26] LABS: Bacteria,Urine 1+ /lpf
[2024-10-11] MEDS: CEFDINIR 300MG CAPSULE 300 MG PO (14:25)
[2024-10-11 14:30] VITALS: BP 126/80; PULSE 90; RESP 18; TEMP 36.7; O2SAT 98
[2024-10-11 15:44] LABS: HCG,Quantitative 123900 mIU/ml (0-5.42)
== END 2024-10-11 14:30 | disposition home or self-care (01) ==
PROVIDERS: Physician Assistant; Emergency Provider Emergency Medicine; PCP Physician Assistant
DX: O23.40 Unspecified infection of urinary tract in pregnancy, unspecified trimester (principal); O21.9 Vomiting of pregnancy, unspecified; R30.9 Painful micturition, unspecified; O26.899 Other specified pregnancy related conditions, unspecified trimester; Z3A.08 8 weeks gestation of pregnancy
CPT/HCPCS: 80053; 81001; 84702; 85025; 87086; 96361; 96374; 99283; J2765; J7030

== ENCOUNTER 2025-01-02 21:04 | Outpatient (CLI) | payer BC, SELFPAY ==
--- OUTSIDE RECORDS SUMMARY | 2023-09-23 07:45 | XMS_ITS ---
Author Organization [facility] Address [address] [place] [id number] Care Team Providers Care Resource Management Specialist Name Role Phone Aden Rivera Primary Care Provider Pranav Diaz Unavailable [phone] Enedelia Duval Unavailable [phone] Tree Couch Unavailable [phone] Allergies No Known Allergies REASON FOR VISIT [facility] ER, bleeding 17 days. liver enzymes elevated Problems Problem Type SNOMED Code ICD Code Onset Dates Problem Status W/U Status Risk Notes Problem [id number] Vaginal bleeding, abnormal (N93.9) Active confirmed Vital Signs Blood pressure systolic 132 mm Hg 09/23/19 24 Blood pressure diastolic 86 mm Hg 024 Heart Rate 74 /min 09/23/2023 Height 61.75 in 09/23/2023 Weight 174.8 lbs 09/23/2023 BMI 32.23 kg/m2 09/23/2023 Encounters Encounter Location Date Provider Diagnosis [facility] [address] [place] [id number] 09/23/2023 [facility] Vaginal bleeding, abnormal N93.9 and Elevated LFTs R79.89 Assessments Encounter Date Diagnosis (ICD Code) Assessment Notes Treatment Notes Treatment Clinical Notes Section Notes 09/23/2023 Vaginal bleeding, abnormal (ICD-10 - N93.9) Patient to follow up with [facility] later this week 09/23/2023 Elevated LFTs (ICD-10 - R79.89) Plan to recheck labs in a few weeks. She already has appt. with Dr. Angy METCALF Plan Of Treatment Treatment Notes Assessment Notes Vaginal bleeding, abnormal Patient to fo llow up with [facility] later this week Elevated LFTs Plan to recheck labs in a few weeks. She already has appt. with Dr. Angy METCALF Next Appt Details Follow Up: via phone to repo rt progress, Reason: Progress Notes * JOESPH SINGERDOB: [birth year] (24 yo F)Acc No.[id number]:09/23/2023 Progress Notes Patient: JOESPH MEJIA Provider: Scottie Couch M.D. :2000 A ge:23 Y S ex:Female Date:09/23/2023 Address:[address] [place] [address], [facility], [id number] Pcp:Aden Rivera Subjective: * Chief Complaints: * 1 . [facility] ER, bleeding 17 days. liver enzymes elevated. * HPI: H PI: 23 year old female presents with c/o Here for follow up on:?hospital ER visit. Pt states she was seen for persistent vaginal bleeding. Pt states she is still having the bleeding and passing l arge clots. Pt states she is scheduled to see [facility] tomorrow. Pt states while she was at the ER at [facility] the lab work revealed very elevated LFT. Pt states she is here today to follow up on the abnormal lab studies. * ROS: D ERMATOLOGY: no R antione. n o H janet. G ASTROENTEROLOGY: no N ausea. n o V omiting. n o D iarrhea.? U ROLOGY: no D ifficulty urinating. n o B lood in urine. * Medical History: M edical History Verified. * Surgical History: O varian Cyst Removal- [facility] 05/09/2020, RT Oophorectomy - [facility] 06/2021. * Family History: F ather: alive 42 yrs. M other: alive 40 yrs. P aternal Grand Father: alive. P aternal Grand Mother: alive. M aternal Grand Father: alive. M aternal Grand Mother: alive. 1 brother(s) . . * Social History: C URRENT TOBACCO USE S moking Status: Patient does NOT smoke. C affeine: yes, frequency:. Home smoke detector use: yes. Alcohol: No. * Medications: D iscontinued Bromfed DM 2-30-10 MG/5ML Syrup 5-10 ml Orally four times a day, prn , Discontinued Albuterol Sulfate HFA 108 (90 Base) MCG/ACT Aerosol Solution 1 puff Inhalation every 6 hrs, prn , Discontinued Zithromax Z-Naseem 250 MG Tablet 2 pills first day then one daily for 4 days orally as directed , Discontinued Medrol 4 MG Tablet Therapy Pack as directed orally daily , Medication List reviewed and reconciled with the patient * Allergies: N .K.D.A. Objective: * Vitals: W t:174.8, Temp:98.4, BP:132/86, HR:74, Nurse:ELLIE, Ht: 61.75, BMI:32.23. * Examination: G eneral Examination: General Appearance: N AD. Heart: R SR. Lungs: c lear to auscultation. Extremities: n o leg edema. R ecords from recent ER visit at [facility] reviewed in office today. Assessment: * Assessment: 1. V aginal bleeding, abnormal - N93.9 (Primary) 2 . E levated LFTs - R79.89 Plan: * Treatment: 2. E levated LFTs Notes: Plan to recheck labs in a few weeks. She already has appt. with GI, Dr. Travis * Follow Up: v ia phone to report progress * Billing Information: * Visit Code: 95619 Office Visit, Est Pt., Level 3. * Procedure Codes: * Electronic signature of Kourtney Couch MD on 01/02/2025 at 09:07 PM EDT Sign off status: Pending * Provider: Scottie Couch M.D. Date: 0 09/23/2023 Generated for Maricruz may/Negin/Spike on: 0 01/02/2025 09:07 PM EDT History and Physical Notes * HPI (History of Present Illness) Category Sub-Category Detail Notes Category Not es HPI Here for follow up on: hospital ER visit. Pt states she was seen for persistent vaginal bleeding. Pt states she is still having the bleeding and passing large clots. Pt states she is scheduled to see [facility] tomorrow. Pt states while she was at the ER at [facility] the lab work revealed very elevated LFT. Pt states she is here today to follow up on the abnormal lab studies Examination Category Sub-Category Detail Notes Category Not es General Examination Heart: RSR Records from recent ER visit at [facility] reviewed in office today Lungs: clear to auscultatio n Extremities: no leg edema General Appearance: NAD
--- OUTSIDE RECORDS SUMMARY | 2024-02-20 11:00 | XMS_ITS ---
Author Organization [facility] Address [address] [facility] [address] [place] [id number] Care Team Providers Care Associate Art Director Name Role Phone Aden Rivera Primary Care Provider [phone] Pranav Diaz Unavailable [phone] Enedelia Duval Unavailable [phone] Michelle Nino Unavailable [phone] Allergies No Known Allergies Results Component Value Reference Range Notes [facility] Reviewed date:03/17/2024 08:48:15 AM Interpretation: Performing Lab: Notes/Report: REASON FOR VISIT BP-anxiety, depression Medications Medication SIG (Take, Route, Fr equency, Duration) Notes Start Date End Date Status FLUoxetine HCl 10 MG 1 capsule Orally On ce a day for 30 day(s) 02/20/2024 Active Problems Problem Type SNOMED Code ICD Code Onset Dates Problem Status W/U Status Risk Notes Problem [id number] Depression with anxiety (F41.8) Active confirmed Vital Signs Blood pressure systolic 116 mm Hg 02/20/20 24 Blood pressure diastolic 78 mm Hg 024 Heart Rate 86 /min 02/20/2024 Height 61.75 in 02/20/2024 Weight 144.2 lbs 02/20/2024 BMI 26.59 kg/m2 02/20/2024 Encounters Encounter Location Date Provider Diagnosis [facility] [address] [facility] [address] [place] [id number] 02/20/2024 Michelle Nino Depression with anxi ety [...] MG 1 capsule Orally On ce a day for 30 day(s) 02/20/2024 Treatment Notes Assessment Notes [...] * JOESPH SINGERDOB: [birth year] (24 yo F)Acc No.[id number]:02/20/2024 Progress Notes Patient: JOESPH MEJIA Provider: DILEEP Jo :2000 A ge:23 Y S ex:Female Date:02/20/2024 Address:[address] [place] [address] [address], [place], [id number] Pcp:Aden Rivera Subjective: * Chief Complaints: * [...] * Surgical History: O varian Cyst Removal- [facility] 05/09/2020, RT Oophorectomy - [facility] 06/2021. * Family History: F ather: [...] G eneral Examination: General Appearance: N AD. HEENT: u nremarkable. Oral cavity: n o lesions, mucosa moist and WNL, no erythema. Neck: s upple, no lymphadenopathy. Chest: n ormal shape and expansion. Heart: R SR. Lungs: c lear to auscultation. Abdomen: bowel sounds present, soft and nontender, no organomegaly or masses, no guarding or rigidity. Neurologic Exam: I ntact, gait normal. Skin: n ormal, no rash. Peripheral pulses: n ormal (2+) bilaterally. Extremities: n o leg edema. P sychology: Grooming : a dequate. Eye contact : decreased. Mood : depressed. Assessment: * Assessment: 1. D [...] says without contrastTaylorMae 02/24/2024 9:18:52 AM > auth#[id number]; valid 02/24/2024 through 03/24/2024; CPT code 30372; faxed to scheduling Michelle Nino 03/17/2024 8:48:06 AM > see TE 4.?Elevated bilirubin?LAB: H-Calprotectin, Fecal ?Imaging: MRCP (Performed Date - 03/16/2024)* Michelle Nino 02/20/2024 4:4 3:37 PM > GI says without contrastTaylorMae 02/24/2024 9:18:52 AM > auth#[id number]; valid 02/24/2024 through 03/24/2024; CPT code 48216; faxed to scheduling Michelle Nino 03/17/2024 8:48:06 AM > see TE 5.?Chronic diarrhea?LAB: H-Calprotectin, Fecal ?Imaging: MRCP (Performed Date - 03/16/2024)* Michelle Nino 02/20/2024 4:4 3:37 PM > GI says without contrastMae Espinoza 02/24/2024 9:18:52 AM > auth#[id number]; valid 02/24/2024 through 03/24/2024; CPT code 92276; faxed to scheduling Michelle Nnio 03/17/2024 8:48:06 AM > see TE * Follow Up: v ia phone to report test results * Billing Information: * Visit Code: 99267 Office Visit, Est Pt., Level 4. * Procedure Codes: * Electronic signature of DILEEP [place] on 01/02/2025 at 09:07 PM EDT Sign off status: Pending * Provider: DILEEP Jo Date: 0 02/20/2024 Generated for Maricruz may/Negin/eTransmitting on: 0 01/02/2025 09:07 PM EDT History [...]
--- OUTSIDE RECORDS SUMMARY | 2024-03-19 11:30 | XMS_ITS ---
Author Organization [facility] Address [address] [facility] [address] [place] [id number] Care Team Providers Care Gluer And Slicer Hand Name Role Phone Aden Rivera Primary Care Provider Pranav Diaz Unavailable [phone] Enedelia Duval Unavailable [phone] Michelle Nino Unavailable [phone] Allergies No Known Allergies REASON FOR VISIT 1 month Encounters Encounter Location Date Provider Diagnosis [facility] [address] [facility] [address] [place] [phone] 03/19/2024 Michelle Nino Plan Of Treatment No Information Progress Notes * JOESPH SINGERDOB: [birth year] (24 yo F)Acc No.[id number]:03/19/2024 Progress Notes Patient: Laura KAMINIJAHLY Provider: DILEEP Jo :2000 A ge:23 Y S ex:Female Date:03/19/2024 Address:[address], [id number] Pcp:Aden Rivera Subjective: * Chief Complaints: * [...] * Surgical History: O varian Cyst Removal- [facility] 05/09/2020, RT Oophorectomy - [facility] 06/2021. * Family History: F [...] * Vitals: Assessment: Plan: * Treatment: * Billing Information: * Visit Code: * Procedure Codes: * Electronic signature of DILEEP [place] on 01/02/2025 at 09:07 PM EDT Sign off status: Pending * Provider: DILEEP Jo Date: 0 03/19/2024 Generated for Maricruz may/Negin/Frankieitting on: 0 01/02/2025 09:07 PM EDT History and Physical Notes * HPI (History of Present Illness) Category Sub-Category Detail Notes Category Not es HPI Patient is here today for Pt pre sents today for a 1 month check up on elevated BP and depression
--- OUTSIDE RECORDS SUMMARY | 2025-01-02 21:08 | XMS_ITS | Patient Health Record ---
Author Organization [facility] Address [address] [facility] [address] [place] [id number] Care Team Providers Care Psychology Instructor Name Role Phone Aden Rivera Primary Care Provider [phone] Pranav Diaz Unavailable [phone] Enedelia Duval Unavailable [phone] Michelle Nino Unavailable [phone] Allergies No Known Allergies Results Component Value Reference Range Notes MRCP Reviewed date:03/17/2024 08:48:15 AM Interpretation: Performing Lab: Notes/Report: H-CMP Reviewed date:03/17/2024 08:48:15 AM Interpretation: Performing Lab: Notes/Report: NA 139 136-145 mmol/L K 4.0 3.5-5.1 mmoL/L CL 107 98-107 mmol/L CO2 26 22.0-30.0 mmol/L GAP 10.0 5-15 mEq/L BUN 6 7-17 mg/dl CREATT 0.70 0.52-1.04 mg/dl GFRAA 124 >60 ML/MIN EGFR 103 >60 ml/min GLU 89 74-100 mg/dl CA 9.0 8.4-10.2 mg/dl BILIT 1.9 0.2-1.3 mg/dl AST 21 14-36 U/L ALT 12 12-78 U/L TP 6.7 6.3-8.2 g/dl ALB 3.9 3.5-5.0 g/dl GLOB 2.8 1.3-3.2 g/dL AGRATIO 1.4 1.1-1.8 ALP 85 38-126 U/L HEPACUTE Reviewed date:03/17/2024 08:48:15 AM Interpretation: Performing Lab: Notes/Report: HEPAM Negative Negative A negative anti-HAV IgM result suggests no recent or current HAV infection. HBSAG Negative Negative HBCM Negative Negative HCVAB2 Non Reactive Non Reactive HCVTI Comment . Not infected with HCV unless early or acute infection is suspected (which may be delayed in an immunocompromised individual), or other evidence exists to indicate HCV infection. Performed at: - [facility] [id number] Associate Account Manager: Juventino Calderon PhD, Phone: [phone] H-Lipase Reviewed date:03/17/2024 08:48:15 AM Interpretation: Performing Lab: Notes/Report: LIP 74 23-300 U/L Reason For Referral No Information Medications Medication SIG (Take, Route, Fr equency, Duration) Notes Start Date End Date Status FLUoxetine HCl 10 MG 1 capsule Orally On ce a day for 30 day(s) 02/20/2024 Active Immunizations Vaccine Route Administration Date Status Comme nts Varivax SC Subcutaneous 05/21/2011 Administered Tetanus Tdap-Adacel (over 7yrs) IM Intramuscular 05/21/2011 Administered Tetanus Tdap-Adacel (over 7yrs) IM Intramuscular 12/15/2020 Administered Tetanus Tdap-Adacel (over 7yrs) Unknown 02/19/2023 Administered Menactra IM Intramuscular 05/21/2011 Administered Hep A- Pediatric IM Intramuscular 10/16/2017 Administered Hep A- Pediatric IM Intramuscular 05/19/2018 Administered Gardasil 9 IM Intramuscular 03/25/2017 Administered Gardasil 9 IM Intramuscular 10/16/2017 Administered COVID 19 Pfizer Unknown 04/12/2021 Administered COVID 19 Pfizer Unknown 05/03/2021 Administered Problems Problem Type SNOMED Code ICD Code Onset Dates Problem Status W/U Status Risk Notes Problem 137740524 Depression with anxiety (F41.8) Active confirmed Problem 02601786 Flexural eczema (L20.82) Active confirmed Problem 85839128 Acute cystitis with hematuria (N30.01) Active confirmed Problem 13914316 Constipation, unspecified constipation type (K59.00) Active confirmed Problem 71582151 Iron deficiency anemia, unspecified iron deficiency anemia type (D50.9) Active confirmed Problem Cryptic tonsil (577831566) Cryptic tonsil (J35.8) Active confirmed Problem 312130037 Intractable migraine without aura and without status migrainosus (G43.019) Active confirmed Problem Daytime somnolence (324678796462) Daytime somnolence (R40.0) Active confirmed Problem 874431858 Vaginal bleeding, abnormal (N93.9) Active confirmed Vital Signs Heart Rate 86 /min 02/20/2024 Blood pressure diastolic 78 mm Hg 02/20/2024 Height 61.75 in 02/20/2024 Blood pressure systolic 116 mm Hg 02/20/2024 Weight 144.2 lbs 02/20/2024 BMI 26.59 kg/m2 02/20/2024 Encounters Encounter Location Date Provider Diagnosis [facility] [address] [place] [address] [place] [id number] 02/20/2024 Michelle Nino Depression with anxi ety F41.8 ; Right upper quadrant pain R10.11 ; Elevated liver enzymes R74.8 ; Elevated bilirubin R17 and Chronic diarrhea K52.9 [facility] [address] [place] [address] [place] [id number] 02/23/2024 [facility] [place] [id number] 03/17/2024 Michelle Nino Assessments Encounter Date Diagnosis (ICD Code) Assessment [...] diarrhea (ICD-10 - K52.9) Plan Of Treatment Pending Test Test Name Order Date H-Calprotectin, Fecal 02/20/2024 H-Lipase 02/20/2024 H-CMP 02/20/2024 H-Hepatitis Panel 02/20/2024 Insurance Providers Payer Name Payer Address Payer Phone Subscriber Number Group Number Insured Name Patient Relationship to Insured Coverage Start Date Coverage End Date MILY JESUS [facility] [address] [place] [address] [id number] JOESPH SINGER Self - patient is the insured Medical (General) History Surgical History Surgery Date(Month/Year) Ovarian Cyst Removal- [facility] RT Oophorectomy - [facility] 06/2021
[2025-01-02 21:10] VITALS: BMI 23.0; BMI 24.5
[2025-01-02 21:22] LABS: Microscopic, Urine URINE MICROSCOPIC (MICROSCOPIC)
[2025-01-02 21:24] LABS: Appearance,Urine SL CLOUDY (Clear); Blood, Urine Negative (Negative); Color,Urine YELLOW (Yellow); Glucose,Urine (UA) Negative (Negative); Ketones,Urine 2+ (Negative); Leukocyte Esterase,Urine 1+ (Negative); Nitrate,Urine Negative (Negative); Protein,Urine 1+ (Negative); Specific Gravity, Urine 1.025 (1.005-1.030)
[2025-01-02 21:26] LABS: Bilirubin,Urine Negative (Negative)
[2025-01-02 21:36] LABS: Bacteria,Urine 4+ /lpf; Mucus,Urine 4+ /lpf; RBC,Urine 20-50 #/hpf (0-3); Squamous Epithelial Cell,Urine 20-50 #/hpf (0-5); WBC,Urine 50-100 #/hpf (0-3)
[2025-01-02] MEDS: hydrOXYzine pamoate 25MG CAPSULE 50 MG PO (21:44)
[2025-01-02] MEDS: ACETAMINOPHEN 500MG TAB 1000 MG PO (21:45)
== END 2025-01-02 22:10 | disposition home or self-care (01) ==
LOC: OBOUT 21:05 → OB 21:06
PROVIDERS: PCP Physician Assistant; Visit Provider Obstetrics & Gynecology
DX: O26.892 Other specified pregnancy related conditions, second trimester (principal); R51.9 Headache, unspecified; Z3A.20 20 weeks gestation of pregnancy
CPT/HCPCS: 81001; 87086; 99212; G0463

== ENCOUNTER 2025-05-28 00:58 | Observation (INO) | payer BC, MEDICAID, SELFPAY ==
--- OUTSIDE RECORDS SUMMARY | 2024-02-20 10:00 | XMS_ITS ---
Author Organization [facility] Address [address] [place] [id number] Care Team Providers Care Electric Relay Tester Name Role Phone Aden Rivera Primary Care Provider [phone] Pranav Diaz Unavailable [phone] Enedelia Duval Unavailable [phone] Michelle Nino Unavailable [phone] Allergies No Known Allergies Results Component Value Reference Range Notes [facility] Reviewed date:03/17/2024 08:48:15 AM Interpretation: Performing Lab: Notes/Report: REASON FOR VISIT BP-anxiety, depression Medications Medication SIG (Take, Route, Fr equency, Duration) Notes Start Date End Date Status FLUoxetine HCl 10 MG 1 capsule Orally On ce a day; Duration: 30 day(s) 02/20/2024 Active Problems Problem Type SNOMED Code ICD Code Onset Dates Problem Status W/U Status Risk Notes Problem Mixed anxiety and depressive disorder (541865844) Depression with anxiety (F41.8) Active confirmed Vital Signs Blood pressure systolic 116 mm Hg 02/20/20 24 Blood pressure diastolic 78 mm Hg 024 Heart Rate 86 /min 02/20/2024 Height 61.75 in 02/20/2024 Weight 144.2 lbs 02/20/2024 BMI 26.59 kg/m2 02/20/2024 Encounters Encounter Location Date Provider Diagnosis [facility] [address] [place] [id number] 02/20/2024 Michelle Nino Depression with anxi ety F41.8 ; Right upper quadrant pain R10.11 ; Elevated liver enzymes R74.8 ; Elevated bilirubin R17 and Chronic diarrhea K52.9 Assessments Encounter Date Diagnosis (ICD Code) Assessment Notes Treatment Notes Treatment Clinical Notes Section Notes 02/20/2024 Depression with anxiety (ICD-10 - F41.8) 02/20/2024 Right upper quadrant pain (ICD-10 - R10.11) Will order tests recommended by Dr. Schmitz's office. Her Bilirubin and LFT's have been elevated and she cannot eat. 02/20/2024 Elevated liver enzymes (ICD-10 - R74.8) 02/20/2024 Elevated bilirubin (ICD-10 - R17) 02/20/2024 Chronic diarrhea (ICD-10 - K52.9) Plan Of Treatment Medication Medication Name Sig Start Date Stop Date Notes FLUoxetine HCl 10 MG 1 capsule Orally On ce a day; Duration: 30 day(s) 02/20/2024 Treatment Notes Assessment Notes Right upper quadrant pain Will order alia ts recommended by Dr. Schmitz's office. Her Bilirubin and LFT's have been elevated and she cannot eat. Pending Test Test Name Order Date H-Calprotectin, Fecal 02/20/2024 H-Lipase 02/20/2024 H-CMP 02/20/2024 H-Hepatitis Panel 02/20/2024 Next Appt Details Follow Up: via phone to repo rt test results, Reason: Progress Notes * JOESPH SINGERDOB: [birth year] (24 yo F)Acc No.[id number]:02/20/2024 Progress Notes Patient: JOESPH MEJIA Provider: DILEEP Jo :2000 A ge:23 Y S ex:Female Date:02/20/2024 Address:[address], [place], [id number] Pcp:Aden Rivera Subjective: * Chief Complaints: * 1 . BP-anxiety, depression. * HPI: C ardiology: 23 year old female presents with c/o Blood Pressure Elevated?Pt sts that she has been getting elevated BP readings at work and is concerned that her BP may be elevated. P sychology: depression P t presents today with c/o emotional and physical fatigue. Pt sts that she has been dealing with a lot of stress lately and is going through a separation with her . Pt sts that she has been having anxiety and panicking. Pt sts that she feels heavy in the chest and sts that she just cries all of the time. Pt has two small children and wants to be better for them. Pt sts that she has seen Valerie Mittal in the past but did not have a good experience. G astroenterology: c/o Abdominal Pain. Continues with abdominal pain, no appetite, weight loss, and chronic diarrhea. She was seeing Dr. Travis but then he left his practice. She was supposed to have labs and an MRCP but never got them done. * ROS: D ERMATOLOGY: no R antione. n o H janet. G ASTROENTEROLOGY: no N ausea. n o V omiting. n o D iarrhea.? U ROLOGY: no D ifficulty urinating. n o B lood in urine. * Medical History: M edical History Verified. * Surgical History: O varian Cyst Removal- [facility] 05/09/2020, RT Oophorectomy - [facility] 06/2021. * Family History: F ather: [...] detector use: yes. Alcohol: No. * Medications: N one * Allergies: N .K.D.A. Objective: * Vitals: W t:144.2, Temp:98.4, BP:116/78, HR:86, Nurse:LOTTIE, Ht: 61.75, BMI:26.59. * Examination: G eneral Examination: General Appearance: N AD. H EENT: u nremarkable.?Oral cavity: n o lesions, mucosa moist and WNL, no erythema. N david: s upple, no lymphadenopathy. C hest: n ormal shape and expansion. H eart: R SR. L ungs: c lear to auscultation. A bdomen: bowel sounds present, soft and nontender, no organomegaly or masses, no guarding or rigidity. N eurologic Exam: I ntact, gait normal. S kin: n ormal, no rash. P eripheral pulses: n ormal (2+) bilaterally. E xtremities: n o leg edema. P sychology: Grooming : a dequate. E ye contact : decreased.?Mood : depressed. Assessment: * Assessment: 1. D epression with anxiety - F41.8 (Primary) 2 . R ight upper quadrant pain - R10.11 3 . E levated liver enzymes - R74.8 4 . E levated bilirubin - R17 5 . C hronic diarrhea - K52.9 Plan: * Treatment: 2. R ight upper quadrant pain L AB: H-Calprotectin, Fecal I maging: MRCP (Performed Date - 03/16/2024) Notes: Will order tests recommended by Dr. Schmitz's office. Her Bilirubin and LFT's have been elevated and she cannot eat.??3.?Elevated liver enzymes?LAB: H-Calprotectin, Fecal ?LAB: H-Lipase ?LAB: H-CMP ?LAB: H-Hepatitis Panel ?Imaging: MRCP (Performed Date - 03/16/2024)* Michelle Nino 02/20/2024 4:4 3:37 PM > GI says without contrastTaylorMae 02/24/2024 9:18:52 AM > auth#[id number]; valid 02/24/2024 through 03/24/2024; CPT code 37832; faxed to scheduling Michelle Nino 03/17/2024 8:48:06 AM > see TE 4.?Elevated bilirubin?LAB: H-Calprotectin, Fecal ?Imaging: MRCP (Performed Date - 03/16/2024)* Michelle Nino 02/20/2024 4:4 3:37 PM > GI says without contrastTaylorMae 02/24/2024 9:18:52 AM > auth#[id number]; valid 02/24/2024 through 03/24/2024; CPT code 72787; faxed to scheduling TrungMichelle Amber 03/17/2024 8:48:06 AM > see TE 5.?Chronic diarrhea?LAB: H-Calprotectin, Fecal ?Imaging: MRCP (Performed Date - 03/16/2024)* TrungMichelle Clark 02/20/2024 4:4 3:37 PM > GI says without contrastTaMae rivers 02/24/2024 9:18:52 AM > auth#[id number]; valid 02/24/2024 through 03/24/2024; CPT code 81511; faxed to scheduling TrungMichelle Amber 03/17/2024 8:48:06 AM > see TE * Follow Up: v ia phone to report test results * Images: Billing Information: * Visit Code: 51013 Office Visit, Est Pt., Level 4. * Procedure Codes: * Electronic signature of DILEEP [place] on 05/28/2025 at 01:25 AM EST Sign off status: Pending * Provider: DILEEP Jo Date: 0 02/20/2024 Generated for Maricruz may/Negin/Spike on: 1 07/28/2024 01:25 AM EST History and Physical Notes * HPI (History of Present Illness) Category Sub-Category Detail Notes Category Not es Cardiology Blood Pressure Elevated Pt sts that she has been getting elevated BP readings at work and is concerned that her BP may be elevated Psychology depression Pt presents toda y with c/o emotional and physical fatigue. Pt sts that she has been dealing with a lot of stress lately and is going through a separation with her . Pt sts that she has been having anxiety and panicking. Pt sts that she feels heavy in the chest and sts that she just cries all of the time. Pt has two small children and wants to be better for them. Pt sts that she has seen Valerie Mittal in the past but did not have a good experience Gastroenterology Abdominal Pain Continues with abdominal pain, no appetite, weight loss, and chronic diarrhea. She was seeing Dr. Travis but then he left his practice. She was supposed to have labs and an MRCP but never got them done. Examination Category Sub-Category Detail Notes Category Not es General Examination HEENT: unremarkable Heart: RSR Lungs: clear to auscultatio n Abdomen: bowel sounds present , soft and nontender, no organomegaly or masses, no guarding or rigidity Extremities: no leg edema General Appearance: NAD Skin: normal, no rash Neurologic Exam: Intact, gait normal Neck: supple, no lymphaden opathy Oral cavity: no lesions, mucosa m oist and WNL, no erythema Peripheral pulses: normal (2+) bilatera lly Chest: normal shape and exp ansion Psychology Grooming : adequate Eye contact : decreased Mood : depressed
--- OUTSIDE RECORDS SUMMARY | 2024-03-19 10:30 | XMS_ITS ---
Author Organization [facility] Address [address] [facility] [address] [place] [id number] Care Team Providers Care Arnp Name Role Phone Aden Rivera Primary Care Provider Pranav Diaz Unavailable [phone] Enedelia Duval Unavailable [phone] Michelle Nino Unavailable [phone] Allergies No Known Allergies REASON FOR VISIT 1 month Encounters Encounter Location Date Provider Diagnosis [facility] [address] [facility] [address] [place] [phone] 03/19/2024 Michelle Nino Plan Of Treatment No Information Progress Notes * JOESPH SINGERDOB: [birth year] (24 yo F)Acc No.[id number]:03/19/2024 Progress Notes Patient: Laura KAMINIJAHLY Provider: DILEEP Jo :2000 A ge:23 Y S ex:Female Date:03/19/2024 Address:[address], [id number] Pcp:Aden Rivera Subjective: * Chief Complaints: * 1 . 1 month. * HPI: H PI: 23 year old female presents with c/o Patient is here today for?Pt presents today for a 1 month check up on elevated BP and depression. * ROS: D ERMATOLOGY: no R antione. n o H janet. G ASTROENTEROLOGY: no N ausea. n o V omiting. n o D iarrhea.? U ROLOGY: no D ifficulty urinating. n o B lood in urine. * Medical History: M edical History Verified. * Surgical History: O varian Cyst Removal- [facility] 05/09/2020, RT Oophorectomy - [facility] 06/2021. * Family History: F ather: alive [...] smoke detector use: yes. Alcohol: No. * Allergies: N .K.D.A. Objective: * Vitals: Assessment: Plan: * Treatment: * Images: Billing Information: * Visit Code: * Procedure Codes: * Electronic signature of DILEEP [place] on 05/28/2025 at 01:25 AM EST Sign off status: Pending * Provider: DILEEP Jo Date: 0 03/19/2024 Generated for Maricruz may/Negin/Frankieitting on: 1 07/28/2024 01:25 AM EST History and Physical Notes * HPI (History of Present Illness) Category Sub-Category Detail Notes Category Not es HPI Patient is here today for Pt pre sents today for a 1 month check up on elevated BP and depression
--- OUTSIDE RECORDS SUMMARY | 2025-04-27 08:44 | XMS_ITS | Encounter Summary ---
Author Organization [facility] Address [address] [place] [address] Care Team Providers Care Reinforcing Steel Worker Name Role Phone Michelle Nino Primary Care Provider [phone] Reason for Visit * Reason Comments Back Pain Pelvic Pain pressure Encounter Details Date Type Department Care Team (Late st Contact Info) Description 04/27/2025 9:44 AM EDT - 04/27/2025 10:35 AM EDT Hospital Encounter [facility] [address] [phone] Aida Olsen MD [address] [place] [address] Martin Veras DO [address] [place] [address] Discharge Disposition: Home or Self Care Social History Tobacco Use Types Packs/Day Years Used Date Smoking Tobacco: Former Smokeless Tobacco: Never Comments: Socially Alcohol Use Standard Drinks/Week Comments Not Currently 0 (1 standard drink = 0.6 oz pur e alcohol) [facility] Utilities Answer Date Recorded In the past 12 months has th e electric, gas, oil, or water company threatened to shut off services in your home? No 04/24/2023 AUDIT-C Answer Date Recorded Q1: How often do you have a drink containing alcohol? Never 04/24/2023 Q2: How many drinks containi ng alcohol do you have on a typical day when you are drinking? Patient does not drink Q3: How often do you have si x or more drinks on one occasion? Never 04/24/2023 Overall Financial Resource Strain (CARDIA) Answe r Date Recorded How hard is it for you to pa y for the very basics like food, housing, medical care, and heating? Not hard at all 04/24/2023 PHQ-2 Answer Date Recorded Retired PHQ-9: Brief Depression Severity Measure Score 0 04/24/2023 Exercise Vital Sign Answer Date Recorde d On average, how many days pe r week do you engage in moderate to strenuous exercise (like a brisk walk)? 0 days 04/24/2023 On average, how many minutes do you engage in exercise at this level? 0 min 04/24/2023 Hunger Vital Sign Answer Date Recorded Within the past 12 months, y ou worried that your food would run out before you got the money to buy more. Never true 04/24/20 23 Within the past 12 months, t he food you bought just didn't last and you didn't have money to get more. Never true 04/24/2023 PRAPARE - Transportation Answer Date Re corded In the past 12 months, has l ack of transportation kept you from medical appointments or from getting medications? No 04/13 In the past 12 months, has l ack of transportation kept you from meetings, work, or from getting things needed for daily living? No 04/24/2023 [place] Depression Scale Answer Date Recorded [place] Depression Scale Total 0 04/25/2023 The thought of harming myself has occurred to me . Unrecognized value 04/25/2023 Abuse Screen Answer Date Recorded Feels Unsafe at Home or Work/School no 12/17/2024 Feels Threatened by Someone no 12/2024 Does Anyone Try to Keep You From Having Contact with Others or Doing Things Outside Your Home? no 12/17/2024 Physical Signs of Abuse Present no 12/17/2024 Housing Stability Answer Date Recorded Current Living Arrangements home 04/13 Potentially Unsafe Housing Conditions none 04/24/2023 Family and Community Support Answer Rahul e Recorded If for any reason you need h elp with day-to-day activities such as bathing, preparing meals, shopping, managing finances, etc., do you get the help you need? I don't need any help 04/24/2023 How often do you feel lonely or isolated from those around you? Never 04/24/2023 Employment Answer Date Recorded Do you want help finding or keeping work or a job? I do not need or want help 04/24/2023 Disabilities Answer Date Recorded Difficulty Concentrating, Remembering or Making Decisions no 04/24/2023 Difficulty Managing Errands Independently no 04/24/2023 Education Answer Date Recorded Do you want help with school or training? For example, starting or completing job training or getting a high school diploma, GED or equivalent No 04/24/2023 Preferred Language Slovenian 04/24/2023 PHQ-2 Answer Date Recorded Retired PHQ-9: Brief Depression Severity Measure Score 0 04/24/2023 Comments Yes Sex and Gender Information Value Date Recorded Sex Assigned at Not on file Legal Sex Female 4:39 PM EDT Gender Identity Not on file Sexual Orientation Not on file documented as of this encounter Last Filed Vital Signs Vital Sign Reading Time Taken Comments Blood Pressure 112/83 04/27/2025 9:57 AM EDT Pulse 99 04/27/2025 9:57 AM EDT Temperature 36.7 C (98.1 F) 04/27/2025 9:57 AM EDT Respiratory Rate 15 04/27/2025 9:57 AM EDT Oxygen Saturation 96% 04/27/2025 9:57 AM EDT Inhaled Oxygen Concentration - - Weight 73 kg (161 lb) 04/27/2025 10:05 AM EDT Height 157.5 cm (5' 2 ) 04/27/2025 10:05 AM EDT Body Mass Index 29.45 04/27/2025 10:05 AM EDT documented in this encounter Functional Status * Question Answer Date of Assessment Author 1. Wish to be (Past 1 Month) No 025 10:06 AM EDT Sofya Mcduffie, RN 2. Non-Specific Active Suici ned Thoughts (Past 1 Month) No 04/27/2025 10:06 AM EDT Tello Mcduffie RN * Calculated C-SSRS Risk Score (Lifetime/Recent) Answer Date of Assessment Author No Risk Indicated 04/27/2025 10:06 AM EDT Sofya Mcduffie, RN * [place] Suicide Severity Rating Scale (Screener/Recent Self-Report) Question Answer Date of Assessment Author 6. Suicidal Behavior (Lifetime) No 5 10:06 AM EDT Sofya Mcduffie, RN documented as of this encounter Discharge Instructions * Attachments The following attachments cannot be sent through Care Everywhere. * Third Trimester of (Slovenian) documented in this encounter Medications at Time of Discharge docusate sodium 100 MG capsule Take 1 capsule by mouth 2 (Two) Times a Day As Needed for Constipation. 60 capsule 1 05/12/2025 10:14 AM EDT 05/12/2025 ferrous sulfate 325 (65 FE) MG tablet Take 1 tablet by mouth 2 (Two) Times a Day With Meals. 60 tablet 03/12/2021 10:04 AM EDT 03/12/2021 ibuprofen (ADVIL,MOTRIN) 600 MG tablet Take 1 tablet by mouth Every 6 (Six) Hours As Needed for Mild Pain. 60 tablet 1 05/12/2025 10:14 AM EDT 05/12/2025 ondansetron ODT (ZOFRAN-ODT) [address] 1 tablet on the tongue Every 8 (Eight) Hours As Needed for Nausea or Vomiting. 30 tablet 09/18/2022 docusate sodium (Colace) 100 MG capsule Take 1 capsule by mouth 2 (Two) Times a Day. 60 capsule 1 06/27/2021 12:07 PM EST 06/27/2021 FLUoxetine (PROzac) 10 MG capsule Take 1 capsule by mouth Daily. ibuprofen (ADVIL,MOTRIN) 600 MG tablet Take 1 tablet by mouth 3 (Three) Times a Day. 15 tablet 09/22/2023 documented as of this encounter Miscellaneous Notes * REINA Notes - Martin Veras DO - 04/27/2025 10:23 AM EDT Images from the original note were not included. [facility] Obstetric History and Physical Referring Provider: Aida Olsen MD Chief Complaint Patient presents with Back Pain Pelvic Pain pressure Subjective Patient is a 24 y.o. female currently at 36w5d, who presents with constant back pain and pelvic pressure today. Patient denies leaking of fluid, vaginal bleeding, recent trauma, fever, or urinary symptoms. Patient reports normal activity. course uncomplicated to date. The following portions of the patients history were reviewed and updated as appropriate: current medications, allergies, past medical history, past surgical history, past family history, past social history, and problem list . Information: Maternal Labs Blood Type No results found for: ABO Rh Status No results found for: RH Antibody Screen No results found for: ABSCRN Gonnorhea No results found for: GCCX Chlamydia No results found for: CLAMYDCU RPR No results found for: RPR Syphilis Antibody No results found for: SYPHILIS Rubella No results found for: RUBELLAIGGIN Hepatitis B Surface Antigen No results found for: HEPBSAG HIV-1 Antibody No results found for: LABHIV1 Hepatitis C Antibody No results found for: HEPCAB Rapid Urin Drug Screen No results found for: AMPMETHU , BARBITSCNUR , LABBENZSCN , LABMETHSCN , LABOPIASCN , THCURSCR , COCAINEUR , AMPHETSCREEN , PROPOXSCN , BUPRENORSCNU , METAMPSCNUR , OXYCODONESCN , TRICYCLICSCN Group B Strep Culture No results found for: GBSANTIGEN External Results Outside Results - Transcribed From Office Records - See Scanned Records For Details Test Value Date Time ABO A 12/17/24 0930 Rh Positive 12/17/24 0930 Antibody Screen Negative 11/05/24 1620 Varicella IgG Reactive 11/05/24 1620 Rubella 4.02 index 11/05/24 1620 Hgb 9.9 g/dL 02/25/25 1521 10.9 g/dL 12/17/24 0913 12.5 g/dL 11/05/24 1620 Hct 29.7 % 02/25/25 1521 32.9 % 12/17/24 0913 36.6 % 11/05/24 1620 HgB A1c 5.20 % 11/05/24 1620 1h GTT 118 mg/dL 02/25/25 0314 3h GTT Fasting 3h GTT 1 hour 3h GTT 2 hour 3h GTT 3 hour Gonorrhea (discrete) Not Detected 11/05/24 1620 Chlamydia (discrete) Not Detected 11/05/24 1620 RPR Syphils cascade: TP-Ab (FTA) Non-Reactive 02/25/25 0314 Non-Reactive 11/05/24 1620 TP-Ab Non-Reactive 02/25/25 0314 Non-Reactive 11/05/24 1620 TP-Ab (EIA) TPPA HBsAg Non-Reactive 11/05/24 1620 Herpes Simplex Virus PCR Herpes Simplex VIrus Culture HIV Non-Reactive 11/05/24 1620 Hep C RNA Quant PCR Hep C Antibody Non-Reactive 11/05/24 1620 AFP NIPT Cystic Fibrosis (Jamia) Cystic Fibroisis Spinal Muscular atrophy Fragile X Group B Strep GBS Susceptibility to Clindamycin GBS Susceptibility to Erythromycin Fibronectin Genetic Testing, Maternal Blood Drug Screening Test Value Date Time Urine Drug Screen Amphetamine Screen Negative 11/05/24 1620 Barbiturate Screen Negative 11/05/24 1620 Benzodiazepine Screen Negative 11/05/24 1620 Methadone Screen Negative 11/05/24 1620 Phencyclidine Screen Negative 11/05/24 1620 Opiates Screen Negative 11/05/24 1620 THC Screen Negative 11/05/24 1620 Cocaine Screen Propoxyphene Screen Buprenorphine Screen Negative 11/05/24 1620 Methamphetamine Screen Oxycodone Screen Negative 11/05/24 1620 Tricyclic Antidepressants Screen Negative 11/05/24 1620 Legend ^: Historical Past OB History: OB History Para Term AB Living 4 2 2 0 1 2 SAB IAB Ectopic Molar Multiple Live Births 1 0 0 0 0 2 # Outcome Date GA Lbr Teo/2nd Weight Sex Type Anes PTL Lv 4 Current 3 Term 04/25/23 40w1d 3485 g (7 lb 10.9 oz) F Vag-Spont EPI N [place] Name: Live Ashwini Emerita Apgar1: 8 Apgar5: 9 2 SAB 2021 6w0d 1 Term 03/10/21 41w1d 12:28 / 00:47 3280 g (7 lb 3.7 oz) M Vag-Spont EPI N [place] Name: ALEC SINGER Apgar1: 8 Apgar5: 9 Past Medical History: Past Medical History: Diagnosis Date Ovarian cyst 06/2021 Past Surgical History Past Surgical History: Procedure Laterality Date OOPHORECTOMY OVARIAN CYST SURGERY 06/2021 WISDOM TOOTH EXTRACTION Family History: Family History Problem Relation Age of Onset No Known Problems Mother Hypertension Father Diabetes Father No Known Problems Brother Social History: reports that she has quit smoking. She has never used smokeless tobacco. reports that she does not currently use alcohol. reports no history of drug use. General ROS Negative Findings:Headaches, Visual Changes, Epigastric pain, Anorexia, Nausia/Vomiting, ROM, and Vaginal Bleeding ROS All other systems have been reviewed and are neg Objective Vital Signs Range for the last 24 hours Temperature: Temp: [98.1 ??F (36.7 ??C)] 98.1 ??F (36.7 ??C) Temp Source: BP: BP: (112)/(83) 112/83 Pulse: Heart Rate: [99] 99 Respirations: Resp: [15] 15 SPO2: SpO2: [96 %] 96 % O2 Amount (l/min): O2 Devices Weight: Weight: [73 kg (161 lb)] 73 kg (161 lb) Physical Examination: General: alert, appears stated age, and cooperative Skin: normal HEENT: Lungs: Heart: Gastrointestinal: Abdomen soft, gravid uterus, guarding benign exam Lower Extremities: No edema, no calf tenderness : Musculoskeletal: Neuro: No focal deficits noted. Presentation: vtx Cervix: Exam by: ALBINO Dilation: 1 cm Effacement: 60% Station: -2 Heart Rate Assessment Method: Beats/min: Baseline: Varibility: Accels: Decels: Tracing Category: NST-indications pelvic pressure, interpretation reactive, moderate bili, accelerations present 15 x15, no deceleration note, onset 0955 end time 1016, no regular contractions noted Uterine Assessment Method: Method: (pt denies ctx, lof, bleeding) Frequency (min): Ctx Count in 10 min: Duration: Intensity: Intensity by IUPC: Resting Tone: Resting Tone by IUPC: [place] Units: Laboratory Results: Lab Results (last 24 hours) Procedure Component Value Units Date/Time Urinalysis, Microscopic Only - Urine, Clean Catch [[id number]] (Abnormal) Collected: 04/27/25 1009 Specimen: Urine, Clean Catch Updated: 04/27/25 1023 RBC, UA None Seen /HPF WBC, UA 11-20 /HPF Bacteria, UA 2+ /HPF Squamous Epithelial Cells, UA 13-20 /HPF Hyaline Casts, UA None Seen /LPF Methodology Automated Microscopy Urinalysis With Microscopic If Indicated (No Culture) - Urine, Clean Catch [[id number]] (Abnormal) Collected: 04/27/25 1009 Specimen: Urine, Clean Catch Updated: 04/27/25 1023 Color, UA Yellow Appearance, UA Cloudy pH, UA 7.5 Specific [place], UA <=1.005 Glucose, UA Negative Ketones, UA Negative Bilirubin, UA Negative Blood, UA Negative Protein, UA Negative Leuk Esterase, UA Large (3+) Nitrite, UA Negative Urobilinogen, UA 0.2 E.U./dL Radiology Review: Imaging Results (Last 24 Hours) No results found for the last 24 hours. Other Studies: Assessment & Plan * No active hospital problems. * REINA Course / Assessment: 1. All lab and imaging results listed above have been reviewed by me. 2. Intrauterine at 36w5d gestation with reactive status. 3. False labor 4. Discomforts of 5. Urinalysis contaminated culture pending. Patient denies dysuria Plan: Discharge to home, labor instructions given, and kick count. Discussed with patient proper nutrition, hydration, activity. 2. Follow-up primary provider in 2 days for scheduled appointment or as needed 3. Plan of care has been reviewed with patient. 4. Risks, benefits of treatment plan have been discussed. 5. All questions have been answered. 6. Martin Veras DO 04/27/2025 10:24 EDT documented in this encounter Plan of Treatment Not on file documented as of this encounter Procedures Procedure Name Priority Date/Time Associated Diagnosis Comments URINALYSIS, MICROSCOPIC ONLY STAT 04/27/2025 10:09 AM EDT URINALYSIS W/ MICROSCOPIC IF INDICATED (NO CULTURE) STAT 04/27/2025 10:09 AM EDT URINE CULTURE STAT 04/27/2025 10:09 AM EDT NONSTRESS TEST Routine 04/27/2025 10:04 AM EDT documented in this encounter Results * Urine Culture - Urine, Urine, Clean Catch (04/27/2025 10:09 AM EDT) Urine Culture 50,000 CFU/mL Normal Urogenital Rama ANGELIC 04/28/2025 12:15 PM EDT [facility] Urine Urine specimen obtained by clean catch procedure / Unknown Collection / Unknown 04/27/2025 10:09 AM EDT 04/27/2025 10:18 AM EDT [facility] - 04/28/2025 12:15 PM EDT Colonization of the urinary tract without infection is common. Treatment is discouraged unless the patient is symptomatic, , or undergoing an invasive urologic procedure. Martin Veras DO MICROBIOLOGY - GENERAL ORDE JOHN Final Result [facility]
[address] [place] [address], * (ABNORMAL) Urinalysis, Microscopic Only - Urine, Clean Catch (04/27/2025 10:09 AM EDT) RBC, UA None Seen None Seen, 0-2 /HPF 04/27/2025 10:23 AM EDT [facility] WBC, UA 11-20(A) None Seen, 0-2 /HPF 04/27/2025 10:23 AM T [facility] Bacteria, UA 2+(A) None Seen /HPF 04/27/2025 10:23 AM EDT [facility] Squamous Epithelial Cells, UA 13-20(A) None Seen, 0-2 /HPF 04/27/2025 10:23 AM T [facility] Hyaline Casts, UA None Seen None Seen /LPF 04/27/2025 10:23 AM EDT [facility] Methodology Automated Microscopy 04/27/2025 10:23 AM T [facility] Urine Urine specimen obtained by clean catch procedure / Unknown Collection / Unknown 04/27/2025 10:09 AM EDT 04/27/2025 10:18 AM EDT us Martin Veras DO URINE ORDERABLES Final Resu lt [facility]
[address] [id number], [place] [phone] * (ABNORMAL) Urinalysis With Microscopic If Indicated (No Culture) - Urine, Clean Catch (04/27/2025 10:09 AM EDT) Color, UA Yellow Yellow, Straw 04/27/2025 10:23 AM EDT [facility] Appearance, UA Cloudy(A) Clear 04/27/2025 10:23 AM EDT [facility] pH, UA 7.5 5.0 - 8.0 04/27/2025 10:23 AM EDT [facility] Specific [place], UA <=1.005 1.005 - 1.030 04/27/2025 10:23 AM EDT [facility] Glucose, UA Negative Negative 04/27/2025 10:23 AM EDT [facility] Ketones, UA Negative Negative 04/27/2025 10:23 AM EDT [facility] Bilirubin, UA Negative Negative 04/27/2025 10:23 AM EDT [facility] Blood, UA Negative Negative 04/27/2025 10:23 AM EDT [facility] Protein, UA Negative Negative 04/27/2025 10:23 AM EDT [facility] Leuk Esterase, UA Large (3+)(A) Negative 04/27/2025 10:23 AM EDT [facility] Nitrite, UA Negative Negative 04/27/2025 10:23 AM EDT [facility] Urobilinogen, UA 0.2 E.U./dL 0.2 - 1.0 E.U./dL 04/27/2025 10:23 AM EDT [facility] Urine Urine specimen obtained by clean catch procedure / Unknown Collection / Unknown 04/27/2025 10:09 AM EDT 04/27/2025 10:18 AM EDT us Martin Veras DO URINE ORDERABLES Final Resu lt [facility]
[address] [place] [address], documented in this encounter Visit Diagnoses Not on filedocumented in this encounter Care Teams Reinforcing Steel Worker Relationship Specialty Start Date End Date Michelle Nino PA [address] [place] [address] [facility] [address] [place] [address] PCP - General Physician Manufacturing Specialist 03/09/21 documented as of this encounter
--- OUTSIDE RECORDS SUMMARY | 2025-05-09 21:22 | XMS_ITS | Encounter Summary ---
Author Organization [facility] Address [address] [place] [address] Care Team Providers Care Tester Rocket Engine Name Role Phone Michelle Nino Primary Care Provider Reason for Visit * Auth/Cert (Routine) Specialty Diagnoses / Procedures Referred By Dorina t Referred To Contact Diagnoses Term Referral ID Status Reason Start Date Expiration Date Visits Re quested Visits Authorized [id number] 1 1 Encounter Details Date Type Department Care Team (Late st Contact Info) Description 05/09/2025 10:22 PM EDT - 05/12/2025 12:10 PM EDT Hospital Encounter [facility] [address] [place] [id number] Aida Olsen MD [address] [facility] [address] [place] [address] 39 weeks gestation of Discharge Disposition: Home or Self Care Social History Tobacco Use Types Packs/Day Years Used Date Smoking Tobacco: Former Smokeless Tobacco: Never Comments: Socially Alcohol Use Standard Drinks/Week Comments Not Currently 0 (1 standard drink = 0.6 oz pur e alcohol) PHQ-2 Answer Date Recorded Retired PHQ-9: Brief Depression Severity Measure Score 0 04/24/2023 PRAPARE - Transportation Answer Date Re corded In the past 12 months, has l ack of transportation kept you from medical appointments or from getting medications? No 04/13 In the past 12 months, has l ack of transportation kept you from meetings, work, or from getting things needed for daily living? No 04/24/2023 [place] Depression Scale Answer Date Recorded [place] Depression Scale Total 0 05/10/2025 The thought of harming myself has occurred to me . Never 05/10/2025 AUDIT-C Answer Date Recorded Q1: How often do you have a drink containing alcohol? Never 05/10/2025 Q2: How many drinks containi ng alcohol do you have on a typical day when you are drinking? Patient does not drink Q3: How often do you have si x or more drinks on one occasion? Never 05/10/2025 Overall Financial Resource Strain (CARDIA) Answe r Date Recorded How hard is it for you to pa y for the very basics like food, housing, medical care, and heating? Not hard at all 05/10/2025 [facility] Occup[facility] - Occupational Stress Questionnaire Answer Date Recorded Do you feel stress - tense, restless, nervous, or anxious, or unable to sleep at night because your mind is troubled all the time - these days? Not at all 05/10/2025 Exercise Vital Sign Answer Date Recorde d On average, how many days pe r week do you engage in moderate to strenuous exercise (like a brisk walk)? 4 days 05/10/2025 On average, how many minutes do you engage in exercise at this level? 20 min 05/10/2025 Hunger Vital Sign Answer Date Recorded Within the past 12 months, y ou worried that your food would run out before you got the money to buy more. Never true 05/10/20 25 Within the past 12 months, t he food you bought just didn't last and you didn't have money to get more. Never true 05/10/2025 PRAPARE - Transportation Answer Date Re corded In the past 12 months, has l ack of transportation kept you from medical appointments or from getting medications? No 04/14 In the past 12 months, has l ack of transportation kept you from meetings, work, or from getting things needed for daily living? No 05/10/2025 [facility] Utilities Answer Date Recorded In the past 12 months has th [employer], gas, oil, or water FOODITY threatened to shut off services in your home? No 05/10/2025 Abuse Screen Answer Date Recorded Feels Unsafe at Home or Work/School no 05/09/2025 Feels Threatened by Someone no 04/14 Does Anyone Try to Keep You From Having Contact with Others or Doing Things Outside Your Home? no 05/09/2025 Physical Signs of Abuse Present no 05/09/2025 Housing Stability Answer Date Recorded Current Living Arrangements home 04/14 Potentially Unsafe Housing Conditions none 05/10/2025 Family and Community Support Answer Rahul e Recorded If for any reason you need h elp with day-to-day activities such as bathing, preparing meals, shopping, managing finances, etc., do you get the help you need? I don't need any help 05/10/2025 How often do you feel lonely or isolated from those around you? Never 05/10/2025 Employment Answer Date Recorded Do you want help finding or keeping work or a job? I do not need or want help 05/10/2025 Disabilities Answer Date Recorded Difficulty Concentrating, Remembering or Making Decisions no 05/09/2025 Difficulty Managing Errands Independently no 05/09/2025 Education Answer Date Recorded Do you want help with school or training? For example, starting or completing job training or getting a high school diploma, GED or equivalent No 05/10/2025 Preferred Language Afghan 05/10/2025 PHQ-2 Answer Date Recorded Patient Health Questionnaire-2 Score 0 05/10/2025 Comments No Sex and Gender Information Value Date Recorded Sex Assigned at Not on file Legal Sex Female 4:39 PM EDT Gender Identity Not on file Sexual Orientation Not on file documented as of this encounter Last Filed Vital Signs Vital Sign Reading Time Taken Comments Blood Pressure 113/76 05/12/2025 7:15 AM EDT Pulse 63 05/12/2025 7:15 AM EDT Temperature 36.7 C (98.1 F) 05/12/2025 7:15 AM EDT Respiratory Rate 16 05/12/2025 7:15 AM EDT Oxygen Saturation 100% 05/10/2025 2:07 AM EDT Inhaled Oxygen Concentration - - Weight 75.8 kg (167 lb) 05/09/2025 10:41 PM EDT Height 157.5 cm (5' 2 ) 05/09/2025 10:41 PM EDT Body Mass Index 30.54 05/09/2025 10:41 PM EDT documented in this encounter Functional Status * AUDIT-C Score Answer Date of Assessment Author 0 05/10/2025 1:00 AM EDT Tisha Martinez RN * Question Answer Date of Assessment Author Q1: How often do you have a drink containing alcohol? Never 05/10/2025 1:00 AM JUANYT Tisha Alaniz RN Q2: How many drinks containing alcohol do you have on a typical day when you are drinking? Patient does not drink 05/10/2025 1:00 AM JUANYT Tisha Alaniz RN Q3: How often do you have six or more drinks on one occasion? Never 05/10/2025 1:00 AM Tisha Centeno RN * Over the past 2 weeks, how often have you been bothered by any of the following problems? Question Answer Date of Assessment Author Patient Health Questionnaire -2 Score 0 05/10/2025 1:00 AM EDT Kirk Alaniz RN * Question Answer Date of Assessment Author 1. Wish to be (Past 1 Month) No 05/09/2025 10:42 PM Lina Centeno RN 2. Non-Specific Active Suicidal Thoughts (Past 1 Month) No 05/09/2025 10:42 PM JUANYT Lina Alaniz RN * Calculated C-SSRS Risk Score (Lifetime/Recent) Answer Date of Assessment Author No Risk Indicated 05/09/2025 10:42 PM Tisha Centeno RN * [place] Suicide Severity Rating Scale (Screener/Recent Self-Report) Question Answer Date of Assessment Author 6. Suicidal Behavior (Lifetime) No 05/09/2025 10:42 PM Lina Centeno RN * Question Answer Date of Assessment Author Little interest or pleasure in doing things Not at all 05/10/2025 1:00 AM Kirk Centeno RN Feeling down, depressed, or hopeless Not at all 05/10/2025 1:00 AM EDT Cruz Espitia, Kirk en, RN documented as of this encounter Discharge Summaries * Nicolle Mccauley APRN - 05/12/2025 9:05 AM EDT [facility] Vaginal Delivery Discharge Summary Patient: Shayna Felder MR#:[id number] Admission Diagnosis: Labor Discharge Diagnosis: Date of Admission: 05/09/2025 Date of Discharge: 05/12/2025 Procedures: Vaginal, Spontaneous 05/10/2025 11:37 AM Service: Obstetrics Hospital Course: Patient underwent vaginal delivery and remained in the hospital for 3 days. Duringthat time she remained afebrile and hemodynamically stable. On the day of discharge, she was eating, ambulating and voiding without difficulty. Lab Results Component Value Date WBC 13.81 (H) 05/11/2025 HGB 8.2 (L) 05/11/2025 HCT 27.4 (L) 05/11/2025 MCV 87.3 05/11/2025 PLT 163 05/11/2025 CREATININE 0.55 (L) 12/17/2024 URICACID 2.6 12/17/2024 AST 13 12/17/2024 ALT 6 12/17/2024 LDH 193 12/17/2024 Results from last 7 days Lab Units 05/10/25 0016 ABO TYPING A RH TYPING Positive ANTIBODY SCREEN Negative Discharge Medications Discharge Medications New Medications Instructions Start Date docusate sodium 100 MG capsule 100 mg, Oral, 2 Times Daily PRN Changes to Medications Instructions Start Date ibuprofen 600 MG tablet Commonly known as: ADVIL,MOTRIN What changed: when to take this reasons to take this 600 mg, Oral, Every 6 Hours PRN Continue These Medications Instructions Start Date FeroSul 325 (65 Fe) MG tablet Generic drug: ferrous sulfate 325 mg, Oral, 2 Times Daily With Meals ondansetron ODT 4 MG disintegrating tablet Commonly known as: ZOFRAN-ODT 4 mg, Translingual, Every 8 Hours PRN Stop These Medications FLUoxetine 10 MG capsule Commonly known as: PROzac Discharge Disposition: To Home Discharge Condition: Stable Discharge Diet: regular Activity at Discharge: Pelvic rest Follow-up Appointments 6 weeks Nicolle Mccauley APRN 05/12/25 09:06 EDT Cosigned by Julissa Yoo MD at 05/12/2025 10:33 AM EDT Associated attestation - Julissa Yoo MD - 05/12/2025 10:33 AM EDT I have reviewed this documentation and agree. documented in this encounter Medications at Time [...] for Nausea or Vomiting. 30 tablet 09/18/2022 documented as of this encounter Progress Notes * Nicolle Mccauley APRN - 05/11/2025 8:52 AM EDT 05/11/2025 PPD #1 Subjective Shayna feels well. Patient describes her lochia as less than menses. She denies SOA and dizziness. Pain is well controlled. She is . She desires male circ. Objective Temp: Temp: [97.7 ??F (36.5 ??C)-98.8 ??F (37.1 ??C)] 98 ??F (36.7 ??C) Temp src: Oral BP: BP: (105-144)/(64-92) 115/70 Pulse: Heart Rate: [64-95] 80 RR: Resp: [15-16] 16 General: No acute distress Abdomen: Fundus firm and beneath umbilicus Pelvis: deferred Lab Results Component Value Date WBC 13.81 (H) 05/11/2025 HGB 8.2 (L) 05/11/2025 HCT 27.4 (L) 05/11/2025 MCV 87.3 05/11/2025 PLT 163 05/11/2025 HEPBSAG Non-Reactive 11/05/2024 AST 13 12/17/2024 ALT 6 12/17/2024 URICACID 2.6 12/17/2024 Assessment PPD# 1 after vaginal delivery PP anemia due to acute blood loss - asymptomatic Plan Supportive care, anticipate discharge in am. PO Iron VSS available This note has been electronically signed. Nicolle Mccauley APRN 08:52 EDT May 11, 2025 * Stacy Almaraz DO - 05/10/2025 12:13 PM EDT [facility] Vaginal Delivery Note Patient Name: Shayna Felder : 2000 Date of Delivery: 05/10/2025 Diagnosis Pre & Post-Delivery: Intrauterine at 38w4d Labor status: Spontaneous Onset of Labor Term Problem List Transfer to Review the Delivery Report for details. Delivery Delivery: Vaginal, Spontaneous Date of : 05/10/2025 Time of : Gestational Age 11:37 AM 38w4d Anesthesia: Epidural Delivering clinician: Forceps? No Vacuum? No Shoulder dystocia present: No Delivery narrative: Patient admitted to L&D for labor. Connected to external FHT and TOCO on presentation to unit. FHT demonstrated initial Category I findings. Patient received epidural and was comfortable with contractions. AROM with amnihook performed of forebag with return of clear fluid. Maternal and tolerance of procedure. Labor progressed steadily. Patient felt increasingly more painful with contractions. Patient progressed to complete and felt the urge to push. Patient was placed in dorsal lithotomy position with feet in stirrups bilaterally. Patient was instructed on pushing in concert with contractions. Patient de livered vertex in direct OA position. No nuchal cord was present. Anterior left shoulder delivered by gentle downward traction then followed by right posterior shoulder by gentle upward traction without complication. No shoulder dystocia. Body followed without difficulty. Male infant delivered pink, active, with good tone and was placed on maternal abdomen. Delayed cord clamping was performed for 1 minute while was stimulated and vigorous cry noted. Umbilical cord was doubly clamped and cut by father of the baby. Infant was attended to by labor and delivery and nursery nurse. Arterial and venous cord blood gases collected. Umbilical cord blood collected. Placenta attempted to be delivered with gentle umbilical cord traction. Thinning at placenta insertion site palpated and no further traction was able to be placed on cord. Placenta was delivered via manual extraction. All pieces were confirmed as collected. Order given for 2g IV Ancef for infection ppx. IV Pitocin was started. Fundal massage was initiated and fundus was found to be firm. Blood and clots were cleared from the vaginal vault. The perineum, vaginal braswell, cervix, and paraurethral area were inspected thoroughly. A first degree midline perineal laceration was noted. Laceration reapproximated with 3-0 Vicryl. Epidural was effective for patient comfort. Hemostasis noted. No episiotomy was performed. Placenta was observed following delivery. Cotyledons all intact and membranes complete. Thick 3 vessel cord confirmed. No complications. Mother and baby were stable when leaving delivery room. I was present for all portions of delivery as listed above. Infant Findings: male Infant observations: Weight: 3504 g (7 lb 11.6 oz) Length: 18.75 in Observations/Comments: Apgars: 6 @ 1 minute / 9 @ 5 minutes Infant Name: Coaslyn Placenta & Cord Placenta delivered Manual removal at 05/10/2025 11:47 AM Cord: 3 vessels present. Nuchal Cord? no Cord blood obtained: Cord gases obtained: Yes Cord gas results: Venous: pH, Cord Venous Date Value Ref Range Status 05/10/2025 7.210 (L) 7.310 - 7.370 pH Units Final Base Excess, Cord Venous Date Value Ref Range Status 05/10/2025 -6.0 (L) 0.0 - 2.0 mmol/L Final Arterial: No results found for: PHCART , BECART Repair Episiotomy: Not recorded No Lacerations: Yes Laceration Information Laceration Repaired? Perineal: None Periurethral: Labial: Sulcus: Vaginal: Cervical: Suture used for repair: 3-0 Vicryl Estimated Blood Loss: Quantitative Blood Loss: 100mL TOTAL BLOOD LOSS : 0 mL (05/09/2025 10:22 PM - 05/10/2025 12:13 PM) Complications none Disposition Mother to Mother Baby/ in stable condition currently. Baby to NBN in stable condition currently. Stacy Almaraz DO 05/10/25 12:13 EDT * Stacy Almaraz DO - 05/10/2025 8:57 AM EDT 05/10/25 08:57 EDT Shayna Felder SUBJECTIVE: comfortable with epidural ASSESSMENTS: BP 125/88 Pulse 83 Temp 97.9 ??F (36.6 ??C) (Oral) Resp 18 Ht 157.5 cm (62 ) Wt 75.8 kg (167 lb) SpO2 100% No BMI 30.54 kg/m?? Heart Rate Assessment Method: HR Assessment Method: external Beats/min: HR (beats/min): 105 Baseline: HR Baseline: normal range Varibility: HR Variability: moderate (amplitude range 6 to 25 bpm) Accels: HR Accelerations: absent Decels: HR Decelerations: other (see comments) (deceleration noted but broken tracing) Tracing Category: Uterine Assessment Method: Method: IUPC (intrauterine pressure catheter) Frequency (min): Contraction Frequency (Minutes): 4 Ctx Count in 10 min: Contractions in 10 Minutes: 4-5 Duration: Intensity: Intensity by IUPC: Resting Tone: Uterine Resting Tone: soft by palpation Resting Tone by IUPC: Presentation: cephalic Cervix: Exam by: Method: sterile vaginal exam performed (Dr. Almaraz) Dilation: Cervical Dilation (cm): 8 Effacement: Cervical Effacement: 90 Station: Station: -2 IUP at 38w4d Labor PLAN: -SVE /-2 -Forebag palpated. Discussed AROM including R/B/I/A/SE. Patient agreeable. AROM performed with return of clear fluid - variables noted intermittently-IUPC placed. Will start amnioinfusion -Proceed to vaginal delivery Stacy Almaraz DO 08:57 EDT 05/10/25 documented in this encounter Nursing Notes * Isabel Worrell RN - 05/10/2025 3:20 PM EDT 05/10/25 1520 Maternal Information Date of Referral 05/10/25 Person Making Referral mgmt consultant Maternal Reason for Referral previous issues Infant Reason for Referral Maternal Assessment Breast Shape Bilateral:;round Breast Density Bilateral:;soft;filling Nipples Bilateral:;piercing present (removed for feeding attempt) Left Nipple Symptoms presence of piercing;leaking (lactating) Maternal Infant Feeding Maternal Emotional State relaxed;receptive Infant Positioning cradle Signs of Milk Transfer audible swallow;deep jaw excursions noted;transfer present Pain with Feeding no Comfort Measures Following Feeding air-drying encouraged Latch Assistance minimal assistance;verbal guidance offered Support Person Involvement actively supporting mother Milk Expression/Equipment Breast Pump Type double electric, personal (lansinoh HF) Breast Pump Flange Size other (see comments) (enc tightest comfortable fit) Equipment for Home Use breast pump ordered through insurance Breast Pumping Breast Pumping Interventions other (see comments) (enc to pump for short or missed feeds and with supplementation) Referrals Referrals outpatient program Outpatient Program Follow-up Date/Time as needed Courtesy visit for newly couplet. MOB reports that first two children didn't like breast feeding so she pumped for a few days. Educational handout provided and reviewed. Infant showinghunger cues. Offered to assist with latch. MOB removed piercing from left nipple, colostrum is dripping out. Assisted in latching in cradle hold. is gulping at breast. MOB denies pain or discom fort with latch. Enc to call as needs arise. * Apolinar Ibrahim RN - 05/10/2025 2:42 PM EDT Goal Outcome Evaluation: documented in this encounter Miscellaneous Notes * REINA Notes - Sidra Hernandez MD - 05/09/2025 11:20 PM EDT [facility] Patient Name: Shayna Felder : 2000 Date of Service: 05/09/2025 Referring Provider: Aida Olsen ID: 24 y.o. at 38w3d Chief complaint: <principal problem not specified> course significant for: Patient Active Problem List Diagnosis Term [Z34.90] (spontaneous vaginal delivery) [O80] anemia [O90.81] Normal spontaneous vaginal delivery [O80] Ms. Wood is a 24 yo at 38w3d who presents with painful contractions, loss of mucus plug, and decreased movement. She as found to be 3-4 cm dilated in triage, from 2 cm last Friday, and had one deceleration at term. She denies any other concerns at this time. Her care is uncomplicated. Her previous obstetric/gynecological history is unremarkable. The following portions of the patients history were reviewed and updated as appropriate: current medications, allergies, past medical history, and past surgical history. REVIEW OF SYSTEMS Patient reports decreased movement. She denies any vaginal bleeding, leakage of fluid, and reports contractions. She denies headache, visual changes, or right upper quadrant pain. All other systems were reviewed and were negative. Labs Lab Results Component Value Date HGB 9.9 (L) 02/25/2025 HEPBSAG Non-Reactive 11/05/2024 ABO A 12/17/2024 RH Positive 12/17/2024 ABSCRN Negative 11/05/2024 [id number] Non-Reactive 11/05/2024 HEPCVIRUSABY Non-Reactive 11/05/2024 URINECX 50,000 CFU/mL Normal Urogenital Rama 04/27/2025 OB HISTORY OB History 4 Para 2 Term 2 AB 1 Living 2 SAB 1 IAB Ectopic Molar Multiple 0 Live Births 2 PAST MEDICAL HISTORY Past Medical History: Diagnosis Date Ovarian cyst 06/2021 PAST SURGICAL HISTORY has a past surgical history that includes Ovarian cyst surgery (06/2021); Mckenzie tooth extraction; and Oophorectomy (Right). CURRENT MEDICATIONS No current facility-administered medications on file prior to encounter. Current Outpatient Medications on File Prior to Encounter Medication Sig Dispense Refill FLUoxetine (PROzac) 10 MG capsule Take 1 capsule by mouth Daily. docusate sodium (Colace) 100 MG capsule Take 1 capsule by mouth 2 (Two) Times a Day. 60 capsule 1 ferrous sulfate 325 (65 FE) MG tablet Take 1 tablet by mouth 2 (Two) Times a Day With Meals. 60 tablet 0 ibuprofen (ADVIL,MOTRIN) 600 MG tablet Take 1 tablet by mouth 3 (Three) Times a Day. 15 tablet 0 ondansetron ODT (ZOFRAN-ODT) [address] 1 tablet on the tongue Every 8 (Eight) Hours As Needed for Nausea or Vomiting. 30 tablet 0 ALLERGIES Stadol [butorphanol] SOCIAL HISTORY Social History Tobacco Use Smoking Status Former Smokeless Tobacco Never Tobacco Comments Socially Social History Substance and Sexual Activity Alcohol Use Not Currently Social History Substance and Sexual Activity Drug Use Never FAMILY HISTORY The patient has a family history of PHYSICAL EXAMINATION Vital Signs Range for the last 24 hours Temperature: Temp: [97.5 ??F (36.4 ??C)] 97.5 ??F (36.4 ??C) Temp Source: Temp src: Oral BP: BP: (128)/(85) 128/85 Pulse: Heart Rate: [99] 99 Respirations: Resp: [18] 18 Weight: 75.8 kg (167 lb) Constitutional: Well developed, well nourished, no acute distress, well-groomed. HEENT: Grossly normal. Respiratory: Lungs are clear to auscultation bilaterally, normal breath sounds. Cardiovascular: Normal rate and rhythm, no murmurs. Abdomen: Soft, gravid, nontender. Uterus: Soft, nontender. Fundus appropriate for dates. Neurologic: Alert & oriented x 4, no focal deficits noted. Psychiatric: Speech and behavior appropriate. Extremities: no cyanosis, clubbing or edema, no evidence of DVT. External Monitoring: Heart Rate Assessment Method: HR Assessment Method: external Beats/min: HR (beats/min): 130 Baseline: HR Baseline: normal range Varibility: HR Variability: moderate (amplitude range 6 to 25 bpm) Accels: HR Accelerations: greater than/equal to 15 bpm, lasting at least 15 seconds Decels: HR Decelerations: absent Tracing Category: Uterine Assessment Method: Method: external tocotransducer Frequency (min): Contraction Frequency (Minutes): poor tracing Ctx Count in 10 min: Duration: Intensity: Intensity by IUPC: Resting Tone: Resting Tone by IUPC: [place] Units: Cervix: Exam by: Method: sterile vaginal exam performed (ALBINO Persaud) Dilation: 3-4 Effacement: Cervical Effacement: 80 Station: -2 Ultrasound: vtx Labs: Lab Results (last 24 hours) No results found for the last 24 hours. ASSESSMENT/PLAN: 24 y.o. female at 38w3d with <principal problem not specified>. Medical Problems Hospital Problem List Term Latent Labor Cervical change from 2 cm to 3-4/80/-2 since 05/06 Consistent, painful contractions Admit for expectant management versus augmentation if required Decreased Movement at Term Deceleration x1 tracing overall reassuring with excellent variability and accels but one late deceleration noted thus far Admission for delivery indicated Consented for vaginal delivery, , and blood products. All of the patient's questions were answered appropriately. Plan to augment if patient does not make cervical change and continues to have decreased movement/any tracing concerns. Rosita Hernandez MD, FACOG documented in this encounter Plan of Treatment Not on file documented as of this encounter Procedures Procedure Name Priority Date/Time Associated Diagnosis Comments CBC WITH AUTO DIFFERENTIAL Routine 05/11/2025 4:57 AM EDT CBC AND DIFFERENTIAL Routine 05/11/2025 4:57 AM EDT BLOOD GAS, ARTERIAL, CORD Routine 05/10/2025 12:17 PM EDT BLOOD GAS, VENOUS, CORD Routine 05/10/2025 12:12 PM EDT TREPONEMA PALLIDUM AB W/REFLEX RPR Routine 05/10/2025 12:16 AM EDT CBC (NO DIFF) Routine 05/10/2025 12:16 AM EDT TYPE AND SCREEN Routine 05/10/2025 12:16 AM EDT TISSUE PATHOLOGY EXAM Routine 05/09/2025 11:20 PM EDT documented in this encounter Results * (ABNORMAL) CBC Auto Differential (05/11/2025 4:57 AM EDT) WBC 13.81(H) 3.40 - 10.80 10*3/mm3 05/11/2025 5:32 AM EDT [facility] RBC 3.14(L) 3.77 - 5.28 10*6/mm3 05/11/2025 5:32 AM EDT [facility] Hemoglobin 8.2(L) 12.0 - 15.9 g/dL 05/11/2025 5:32 AM EDT [facility] Hematocrit 27.4(L) 34.0 - 46.6 % 05/11/2025 5:32 AM EDT [facility] MCV 87.3 79.0 - 97.0 fL 05/11/2025 5:32 AM EDT [facility] MCH 26.1(L) 26.6 - 33.0 pg 05/11/2025 5:32 AM EDT [facility] MCHC 29.9(L) 31.5 - 35.7 g/dL 05/11/2025 5:32 AM EDT [facility] RDW 13.7 12.3 - 15.4 % 05/11/2025 5:32 AM EDT [facility] RDW-SD 43.2 37.0 - 54.0 fl 05/11/2025 5:32 AM EDT [facility] MPV 11.0 6.0 - 12.0 fL 05/11/2025 5:32 AM EDT [facility] Platelets 163 140 - 450 10*3/mm3 05/11/2025 5:32 AM EDT [facility] Neutrophil % 79.4(H) 42.7 - 76.0 % 05/11/2025 5:32 AM T [facility] Lymphocyte % 14.0(L) 19.6 - 45.3 % 05/11/2025 5:32 AM [facility] Monocyte % 5.4 5.0 - 12.0 % 05/11/2025 5:32 AM [facility] Eosinophil % 0.4 0.3 - 6.2 % 05/11/2025 5:32 AM [facility] Basophil % 0.3 0.0 - 1.5 % 05/11/2025 5:32 AM [facility] Immature Grans % 0.5 0.0 - 0.5 % 05/11/2025 5:32 AM [facility] Neutrophils, Absolute 10.97(H) 1.70 - 7.00 10*3/mm3 05/11/2025 5:32 AM [facility] Lymphocytes, Absolute 1.93 0.70 - 3.10 10*3/mm3 05/11/2025 5:32 AM [facility] Monocytes, Absolute 0.75 0.10 - 0.90 10*3/mm3 05/11/2025 5:32 AM [facility] Eosinophils, Absolute 0.05 0.00 - 0.40 10*3/mm3 05/11/2025 5:32 AM [facility] Basophils, Absolute 0.04 0.00 - 0.20 10*3/mm3 05/11/2025 5:32 AM [facility] Immature Grans, Absolute 0.07(H) 0.00 - 0.05 10*3/mm3 05/11/2025 5:32 AM [facility] nRBC 0.0 0.0 - 0.2 /100 WBC 05/11/2025 5:32 AM [facility] Blood Venipuncture / Unknown 05/11/2025 4:57 AM EDT 05/11/2025 5:26 AM EDT us Stacy Almaraz DO LAB BLOOD ORDERABLES Final R esult [facility]
[address] [id number], * (ABNORMAL) Blood Gas, Arterial, Cord (05/10/2025 12:17 PM EDT) Site Umbilical 05/10/2025 12:23 PM EDT [facility] pH, Cord Arterial 7.12(LL) 7.22 - 7.30 pH Units 05/10/2025 12:23 PM EDT [facility] Comment:85 Value below criti mitesh limit pCO2, Cord Arterial 70.8(HH) 43.3 - 54.9 mmHg 05/10/2025 12:23 PM EDT [facility] pO2, Cord Arterial 23.8 11.5 - 43.3 mmHg 05/10/2025 12:23 PM EDT [facility] HCO3, Cord Arterial 23.0(H) 16.9 - 20.5 mmol/L 05/10/2025 12:23 PM EDT [facility] Base Exc, Cord Arterial -8.5(L) 0.0 - 2.0 mmol/L 05/10/2025 12:23 PM EDT [facility] O2 Sat, Cord Arterial 34.9 % 05/10/2025 12:23 PM EDT [facility] Hemoglobin, Blood Gas 19.1(H) 14 - 18 g/dL 05/10/2025 12:23 PM EDT [facility] CO2 Content 25.2 22 - 33 mmol/L 05/10/2025 12:23 PM EDT [facility] Temperature 37.0 05/10/2025 12:23 PM EDT [facility] Barometric Pressure for Blood Gas 05/10/2025 12:23 PM EDT [facility] Comment:N/A Modality Room Air 05/10/2025 12:23 PM EDT [facility] FIO2 21 % 05/10/2025 12:23 PM EDT [facility] Ventilator Mode 12:23 PM EDT [facility] Rate 0 Breaths/m inute 05/10/2025 12:23 PM EDT [facility] PIP 0 cmH2O 05/10/2025 12:23 PM EDT [facility] Comment:Meter: [id number] N0012 Program Clinician: [id number] IPAP 0 05/10/2025 12:23 PM EDT [facility] EPAP 0 05/10/2025 12:23 PM EDT [facility] Note 0 05/10/2025 12:23 PM EDT [facility] Notified Logan MCGARRY RN 05/10/2025 12:23 PM EDT [facility] Notified By [id number] 05/10/2025 12:23 PM EDT [facility] Notified Time 05/10/2025 12:24 05/10/2025 12:23 PM EDT [facility] Cord Blood Arterial Umbilical cord structure / Unknown 05/10/2025 12:17 PM EDT 05/10/2025 12:17 PM EDT us Aida Olsen MD LAB BLOOD ORDERABLES Final Re sult [facility]
[address] [place] [address], * (ABNORMAL) Blood Gas, Venous, Cord (05/10/2025 12:12 PM EDT) Site Umbilical 05/10/2025 12:22 PM EDT [facility] pH, Cord Venous 7.210(L) 7.310 - 7.370 pH Units 05/10/2025 12:22 PM EDT [facility] pCO2, Cord Venous 58.1(H) 28.0 - 40.0 mm Hg 05/10/2025 12:22 PM EDT [facility] pO2, Cord Venous 11.4(L) 21.0 - 31.0 mm Hg 05/10/2025 12:22 PM EDT [facility] HCO3, Cord Venous 23.2(H) 18.6 - 21.4 mmol/L 05/10/2025 12:22 PM EDT [facility] Base Excess, Cord Venous -6.0(L) 0.0 - 2.0 mmol/L 05/10/2025 12:22 PM EDT [facility] O2 Sat, Cord Venous 12.3 % 05/10/2025 12:22 PM EDT [facility] Hemoglobin, Blood Gas 18.8(H) 14 - 18 g/dL 05/10/2025 12:22 PM EDT [facility] CO2 Content 25.0 22 - 33 mmol/L 05/10/2025 12:22 PM EDT [facility] Temperature 37.0 05/10/2025 12:22 PM EDT [facility] Barometric Pressure for Blood Gas 05/10/2025 12:22 PM EDT [facility] Comment:N/A Modality Room Air 05/10/2025 12:22 PM EDT [facility] FIO2 21 % 05/10/2025 12:22 PM EDT [facility] Rate 0 Breaths/m inute 05/10/2025 12:22 PM EDT [facility] PIP 0 cmH2O 05/10/2025 12:22 PM EDT [facility] Comment:Meter: [id number] N0012 Program Clinician: [id number] IPAP 0 05/10/2025 12:22 PM EDT [facility] EPAP 0 05/10/2025 12:22 PM EDT [facility] O2 Saturation Calculated 05/10/2025 12:22 PM EDT [facility] Comment:Calculated O2 satura tion result not reported at this site. Cord Blood Venous Umbilical cord structure / Unknown 05/10/2025 12:12 PM EDT 05/10/2025 12:12 PM EDT Aida Olsen MD LAB BLOOD ORDERABLES Final Re sult [facility]
[address] [place] [address], * Type & Screen (05/10/2025 12:16 AM EDT) ABO Type A 05/10/2025 1:28 AM EDT [facility] RH type Positive 05/10/2025 1:28 AM EDT [facility] Antibody Screen Negative 05/10/2025 1:28 AM EDT [facility] T&S Expiration Date 05/13/2025 11:59:59 PM 05/10/2025 1:28 AM EDT [facility] Blood Venipuncture / Unknown 05/10/2025 12:16 AM EDT 05/10/2025 12:54 AM EDT Sidra Hernandez MD BLOOD BANK TEST ORDERABLES E dited Result - Final [facility]
[address] [place] [address], * Treponema pallidum AB w/Reflex RPR (05/10/2025 12:16 AM EDT) Treponemal AB Total Non-Reacti ve Non-React tyrese 05/10/2025 9:47 AM EDT [facility] Blood Venipuncture / Unknown 05/10/2025 12:16 AM EDT 05/10/2025 12:29 AM EDT Narrative [facility] - 05/10/2025 9:47 AM EDT Reactive results will reflex RPR testing. Sidra Hernandez MD LAB BLOOD ORDERABLES Final R esult [facility]
[address] [place] [address], * (ABNORMAL) CBC (No Diff) (05/10/2025 12:16 AM EDT) WBC 11.10(H) 3.40 - 10.80 10*3/mm3 05/10/2025 12:33 AM EDT [facility] RBC 3.31(L) 3.77 - 5.28 10*6/mm3 05/10/2025 12:33 AM EDT [facility] Hemoglobin 8.8(L) 12.0 - 15.9 g/dL 05/10/2025 12:33 AM EDT [facility] Hematocrit 27.9(L) 34.0 - 46.6 % 05/10/2025 12:33 AM EDT [facility] MCV 84.3 79.0 - 97.0 fL 05/10/2025 12:33 AM EDT [facility] MCH 26.6 26.6 - 33.0 pg 05/10/2025 12:33 AM EDT [facility] MCHC 31.5 31.5 - 35.7 g/dL 05/10/2025 12:33 AM EDT [facility] RDW 13.7 12.3 - 15.4 % 05/10/2025 12:33 AM EDT [facility] RDW-SD 42.2 37.0 - 54.0 fl 05/10/2025 12:33 AM EDT [facility] MPV 11.0 6.0 - 12.0 fL 05/10/2025 12:33 AM EDT [facility] Platelets 210 140 - 450 10*3/mm3 05/10/2025 12:33 AM EDT [facility] Blood Venipuncture / Unknown 05/10/2025 12:16 AM EDT 05/10/2025 12:31 AM EDT Sidra Hernandez MD LAB BLOOD ORDERABLES Final R esult [facility]
[address] [place] [address], * Tissue Pathology Exam (05/09/2025 11:20 PM EDT) Case Report Surgical Pathology Report Case: [id number] Authorizing Provider: Aida Olsen MD Collected: 05/09/2025 11:20 PM Ordering Location: [facility] Received: 05/10/2025 01:26 PM LABOR DELIVERY Pathologist: Rustam Parrish MD Specimen: Placenta 05/12/2025 12:55 PM EDT [facility] Clinical Information 38 weeks and 4 days 05/12/2025 12:55 PM EDT [facility] Final Diagnosis PLACENTA (444 g): membranes with no acute inflammation or meconium staining. Three-vessel umbilical cord with no significant histopathologic change. Third trimester villous maturation with no histologic features of infection or dysmaturity. 05/12/2025 12:55 PM EDT [facility] at 1255 EDT Gross Description 1. Placenta. Received in formalin labeled placenta is a 7.5 x 13.5 x 4 cm disrupted mercedes placenta with a trimmed weight of 444 g. The umbilical cord is attached to the membranes, but has from the disc. The cord is 20 cm long by 1.0 cm in diameter. A possible disrupted cord insertion site is identified marginally. The cord has 3 vessels and multiple twists. A single false knot is present. No true knots are identified. The membranes have a 100% marginal insertion and are varela-enrique, glistening and minimally focally thickened. The surface is blue-varela, glistening and well vascularized. The uterine surface is disrupted, dark brown, and lobulated. Sectioning reveals red, spongy parenchyma with no gross lesions identified. [employer] sections are submitted as follows: 1A-umbilical cord with false knot and membrane roll with thickened area 7U-qpxa-qvrljyzkl disc 9E-wxoh-nanuodzux disc at possible cord insertion site. LDP 05/12/2025 12:55 PM EDT [facility] Microscopic Description The slides are reviewed and demonstrate histopathologic features supporting the above rendered diagnosis. 05/12/2025 12:55 PM EDT [facility] Tissue Placental structure / Unknown 05/09/2025 11:20 PM EDT 05/10/2025 1:26 PM EDT us Aida Olsen MD PATHOLOGY/CYTOLOGY ORDERABLES Final Result [facility]
[address] [place] [address], documented in this encounter Visit Diagnoses Diagnosis 39 weeks gestation of Term (spontaneous vaginal delivery) Normal delivery documented in this encounter Admitting Diagnoses Diagnosis Term documented in this encounter Administered Medications Inactive Administered Medications - up to 3 most recent administrations Medication Order MAR Action Action Date Dose Rate Site acetaminophen (TYLENOL) tablet 650 mg 650 mg, Oral, Every 4 Hours PRN, Mild Pain, Headache, Starting on Fri05/09/25 at 2320, If given for fever, use fever parameter: fever greater than 100.4 F Based on patient request - if ordered for moderate or severe pain, provider allows for administration of a medication prescribed for a lower pain scale. Do not exceed 4 grams of acetaminophen in a 24 hr period. Max dose of 2gm for AST/ALT greater than 120 units/L. If given for pain, use the following pain scale: Mild Pain = Pain Score of 1-3, CPOT 1-2 Moderate Pain = Pain Score of 4-6, CPOT 3-4 Severe Pain = Pain Score of 7-10, CPOT 5-8Indications:39 weeks gestation of Given 05/10/2025 12:46 AM EDT 650 mg acetaminophen (TYLENOL) tablet 650 mg 650 mg, Oral, Every 6 Hours PRN, Mild Pain, Second Line: Mild pain unrelieved by ibuprofen. Stagger doses 3 hours after dose of ibuprofen., Starting on Fri05/10/25 at 1400, Based on patient request - if ordered for moderate or severe pain, provider allows for administration of a medication prescribed for a lower pain scale. Based on patient request - if ordered for moderate or severe pain, provider allows for administration of a medication prescribed for a lower pain scale. Do not exceed 4 grams of acetaminophen in a 24 hr period. Max dose of 2gm for AST/ALT greater than 120 units/L. If given for pain, use the following pain scale: Mild Pain = Pain Score of 1-3, CPOT 1-2 Moderate Pain = Pain Score of 4-6, CPOT 3-4 Severe Pain = Pain Score of 7-10, CPOT 5-8 Given 05/11/2025 9:31 AM EDT 650 mg Given 05/10/2025 5:05 PM EDT 650 mg benzocaine (AMERICAINE) 20 % rectal ointment 1 Application 1 Application, Rectal, As Needed, Hemorrhoids, Starting on Fri05/10/25 at 1400, May leave at bedside. (SP) Given 05/12/2025 11:55 AM EDT 1 Ap plication Given 05/10/2025 2:34 PM EDT 1 Application benzocaine-menthol (DERMOPLAST) 20-0.5 % topical spray Topical, As Needed, Mild Pain, perineal pain, Starting on Fri05/10/25 at 1400, May leave at bedside. If given for pain, use the following pain scale: Mild Pain = Pain Score of 1-3, CPOT 1-2 Moderate Pain = Pain Score of 4-6, CPOT 3-4 Severe Pain = Pain Score of 7-10, CPOT 5-8 Given 05/12/2025 11:55 AM EDT Given 05/10/2025 2:34 PM EDT ceFAZolin 2000 mg IVPB in 100 mL NS (MBP) 2,000 mg, Intravenous, Administer over 30 Minutes, Once, On Fri05/10/25 at 1245, For 1 dose, Caution: Look alike/sound alike drug alert, Indications: rethaned plaectaIndications:rethaned plaecta New Bag 05/10/2025 12:45 PM EDT 2,000 m g docusate sodium (COLACE) capsule 100 mg 100 mg, Oral, 2 Times Daily, First dose on Fri05/10/25 at 2100, Swallow whole. Do not open, crush, or chew capsule. Given 05/12/2025 9:34 AM EDT 100 mg Given 05/11/2025 7:47 PM EDT 100 mg Given 05/11/2025 9:32 AM EDT 100 mg ferrous sulfate tablet 325 mg 325 mg, Oral, Daily With Breakfast, First dose on Fri05/11/25 at 0945, Swallow whole. Do not crush, split, or chew. Take with food if GI upset occurs. Given 05/12/2025 9:34 AM EDT 325 mg Given 05/11/2025 9:31 AM EDT 325 mg FLUoxetine (PROzac) capsule 10 mg 10 mg, Oral, Nightly, First dose on Fri05/10/25 at 2100, Caution: Look alike/sound alike drug alert Given 05/11/2025 7:47 PM EDT 10 mg Given 05/10/2025 9:04 PM EDT 10 mg HYDROcodone-acetaminophen (NORCO) 10-325 MG per tablet 1 tablet 1 tablet, Oral, Every 4 Hours PRN, Severe Pain, Starting on Fri05/10/25 at 1400, For 7 days, Based on patient request - if ordered for moderate or severe pain, provider allows for administration of a medication prescribed for a lower pain scale. [KELLI] Do not exceed 4 grams of acetaminophen in a 24 hr period. Max dose of 2gm for AST/ALT greater than 120 units/L If given for pain, use the following pain scale: Mild Pain = Pain Score of 1-3, CPOT 1-2 Moderate Pain = Pain Score of 4-6, CPOT 3-4 Severe Pain = Pain Score of 7-10, CPOT 5-8 HYDROcodone-acetaminophen (NORCO) 5-325 MG per tablet 1 tablet 1 tablet, Oral, Every 4 Hours PRN, Moderate Pain, Starting on Fri05/10/25 at 1400, For 7 days, Based on patient request - if ordered for moderate or severe pain, provider allows for administration of a medication prescribed for a lower pain scale. [KELLI] Do not exceed 4 grams of acetaminophen in a 24 hr period. Max dose of 2gm for AST/ALT greater than 120 units/L If given for pain, use the following pain scale: Mild Pain = Pain Score of 1-3, CPOT 1-2 Moderate Pain = Pain Score of 4-6, CPOT 3-4 Severe Pain = Pain Score of 7-10, CPOT 5-8 Given 05/11/2025 1:12 AM EDT 1 tablet ibuprofen (ADVIL,MOTRIN) tablet 600 mg 600 mg, Oral, Every 6 Hours PRN, Mild Pain, First Line: Mild pain., Starting on Fri05/10/25 at 1400, Based on patient request - if ordered for moderate or severe pain, provider allows for administration of a medication prescribed for a lower pain scale. If given for pain, use the following pain scale: Mild Pain = Pain Score of 1-3, CPOT 1-2 Moderate Pain = Pain Score of 4-6, CPOT 3-4 Severe Pain = Pain Score of 7-10, CPOT 5-8 Given 05/11/2025 11:41 AM EDT 600 mg Given 05/10/2025 10:58 PM EDT 600 mg Given 05/10/2025 2:34 PM EDT 600 mg lactated ringers bolus 1,000 mL 1,000 mL, Intravenous, at 4,000 mL/hr, Administer over 0.25 Hours, Once, On Fri05/10/25 at 0015, For 1 dose, Preload for epiduralIndications:39 weeks gestation of New Bag 05/10/2025 1:41 AM EDT 1,000 mL 4000 mL/ hr lactated ringers infusion 125 mL/hr, Intravenous, Continuous, Starting on Fri05/10/25 at 0015, For 24 hoursIndications:39 weeks gestation of New Bag 05/10/2025 9:28 AM EDT 125 mL/hr 125 mL/h r New Bag 05/10/2025 12:31 AM EDT 125 mL/hr 125 mL/hr lanolin cream 1 Application 1 Application, Topical, Every 1 Hour PRN, Dry Skin, nipple pain, Starting on Fri05/10/25 at 1400, May keep at bedside. Given 05/12/2025 11:55 AM EDT 1 Application Given 05/10/2025 2:34 PM EDT 1 Application ondansetron (ZOFRAN) injection 4 mg 4 mg, Intravenous, Once As Needed, Nausea, Vomiting, Starting on Fri05/10/25 at 0130, For 1 dose Given 05/10/2025 1:58 AM EDT 4 mg oxytocin (PITOCIN) 30 units in 0.9% sodium chloride 500 mL (premix) 999 mL/hr, Intravenous, Once, On Fri05/10/25 at 1230, For 1 dose, Infuse 250 ml at 999 ml/hr. If patient has a previous bag with remaining volume, please use remainder of that bag to avoid waste. Group 2 ([place]) Hazardous Drug - Reproductive Risk Only - See Handling GuideIndications:39 weeks gestation of New Bag 05/10/2025 11:47 AM EDT 999 mL/hr 999 mL/ hr oxytocin (PITOCIN) 30 units in 0.9% sodium chloride 500 mL (premix) 250 mL/hr, Intravenous, Continuous, Starting on Fri05/10/25 at 1245, For 1 hour, Infuse at 250 ml/hr for remaining volume in bag. Group 2 ([place]) Hazardous Drug - Reproductive Risk Only - See Handling GuideIndications:39 weeks gestation of New Bag 05/10/2025 12:08 PM EDT 250 mL/hr 250 mL/hr vitamin tablet 1 tablet 1 tablet, Oral, Daily, First dose on Fri05/10/25 at 1500 Given 05/12/2025 9:34 AM EDT 1 tablet Given 05/11/2025 9:32 AM EDT 1 tablet ropivacaine (NAROPIN) 0.2 % injection 15 mL/hr, Epidural, Continuous, Starting on Fri05/10/25 at 0230, Anesthesiologist To Adjust Rate As Needed. RN May Replace Epidural Infusion Fluids As Ordered New Bag 05/10/2025 2:12 AM EDT 12 mL/hr 12 m L/hr witch estiven-glycerin (TUCKS) pad Topical, As Needed, Irritation, Hemorrhoids, Starting on Fri05/10/25 at 1400, May leave at bedside. Given 05/12/2025 11:55 AM EDT Given 05/10/2025 2:33 PM EDT documented in this encounter Active and Recently Administered Medications Times are shown in EDT. Scheduled Medication Order 05/10/2025 05/11/2025 05/12/2025 ceFAZolin 2000 mg IVPB in 100 mL NS (MBP) (COMPLETED) 2,000 mg, Intravenous, Administer over 30 Minutes, Once, On Fri05/10/25 at 1245, For 1 dose, Caution: Look alike/sound alike drug alert, Indications: rethaned plaecta 1245 (New Bag - Provider: Apolinar Ibrahim RN) docusate sodium (COLACE) capsule 100 mg 100 mg, Oral, 2 Times Daily, First dose on Fri05/10/25 at 2100, Swallow whole. Do not open, crush, or chew capsule. 2103 (Given - Provider: Verona Mayorga RN) 931 (Given - Provider: Ivy Álvarez RN)1946 (Given - Provider: Verona Mayroga RN)2099 (Due) 0934 (Given - Provider: Rob Fernández, ALBINO) ferrous sulfate tablet 325 mg 325 mg, Oral, Daily With Breakfast, First dose on Fri05/11/25 at 0945, Swallow whole. Do not crush, split, or chew. Take with food if GI upset occurs. 930 (Given - Provider: Ivy Álvarez RN) 34 (Given - Provider: Rob Fernández, ALBINO) FLUoxetine (PROzac) capsule 10 mg 10 mg, Oral, Nightly, First dose on Fri05/10/25 at 2100, Caution: Look alike/sound alike drug alert 2103 (Given - Provider: Verona Mayorga RN) 1946 (Given - Provider: Verona Mayorga RN)2099 (Due) lactated ringers bolus 1,000 mL (COMPLETED) 1,000 mL, Intravenous, at 4,000 mL/hr, Administer over 0.25 Hours, Once, On Fri05/10/25 at 0015, For 1 dose, Preload for epidural 0141 (New Bag - Provider: Tisha Espitia RN) lactated ringers bolus 500 mL 500 mL, Intrauterine, at 500 mL/hr, Administer over 1 Hours, Once, On Fri05/10/25 at 0945, For 1 dose 0945 (Due) oxytocin (PITOCIN) 30 units in 0.9% sodium chloride 500 mL (premix) (COMPLETED)(Linked Group 1) 999 mL/hr, Intravenous, Once, On Fri05/10/25 at 1230, For 1 dose, Infuse 250 ml at 999 ml/hr. If patient has a previous bag with remaining volume, please use remainder of that bag to avoid waste. Group 2 ([place]) Hazardous Drug - Reproductive Risk Only - See Handling Guide 1147 (New Bag - Provider: Apolinar Ibrahim RN) vitamin tablet 1 tablet 1 tablet, Oral, Daily, First dose on Fri05/10/25 at 1500 1500 (Due) 0932 (Given - Provider: Ivy Álvarez, ALBINO) 0934 (Given - Provider: Rob Fernández, ALBINO) Continuous Medication Order 05/10/2025 05/11/2025 05/12/2025 lactated ringers infusion () 125 mL/hr, Intravenous, Continuous, Starting on Fri05/10/25 at 0015, For 24 hours 0031 (New Bag - Provider: Tisha Espitia RN)0928 (New Bag - Provider: Tisha Espitia RN) 0030 (Due: Order Ending - Provider: Tisha Espitia RN - Comment: [Order ends at this time. Document the following action when infusion is complete: Stopped]) oxytocin (PITOCIN) 30 units in 0.9% sodium chloride 500 mL (premix) ()(Linked Group 1) 250 mL/hr, Intravenous, Continuous, Starting on Fri05/10/25 at 1245, For 1 hour, Infuse at 250 ml/hr for remaining volume in bag. Group 2 ([place]) Hazardous Drug - Reproductive Risk Only - See Handling Guide 1208 (New Bag - Provider: Apolinar Ibrahim RN)1307 (Due: Order Ending - Provider: Apolinar Ibrahim RN - Comment: [Order ends at this time. Document the following action when infusion is complete: Stopped]) ropivacaine (NAROPIN) 0.2 % injection 15 mL/hr, Epidural, Continuous, Starting on Fri05/10/25 at 0230, Anesthesiologist To Adjust Rate As Needed. RN May Replace Epidural Infusion Fluids As Ordered 0212 (New Bag - Provider: Lori Guerrero DO) 1419 (Due: Order Ending - Provider: Automatic Discharge Provider - Comment: [Order ends at this time. Document the following action when infusion is complete: Stopped]) PRN Medication Order 05/10/2025 05/11/2025 05/12/2025 acetaminophen (TYLENOL) tablet 650 mg (CANCELED) 650 mg, Oral, Every 4 Hours PRN, Mild Pain, Headache, Starting on Fri05/09/25 at 2320, If given for fever, use fever parameter: fever greater than 100.4 F Based on patient request - if ordered for moderate or severe pain, provider allows for administration of a medication prescribed for a lower pain scale. Do not exceed 4 grams of acetaminophen in a 24 hr period. Max dose of 2gm for AST/ALT greater than 120 units/L. If given for pain, use the following pain scale: Mild Pain = Pain Score of 1-3, CPOT 1-2 Moderate Pain = Pain Score of 4-6, CPOT 3-4 Severe Pain = Pain Score of 7-10, CPOT 5-8 0046 (Given - Provider: Tisha Espitia RN) acetaminophen (TYLENOL) tablet 650 mg 650 mg, Oral, Every 6 Hours PRN, Mild Pain, Second Line: Mild pain unrelieved by ibuprofen. Stagger doses 3 hours after dose of ibuprofen., Starting on Fri05/10/25 at 1400, Based on patient request - if ordered for moderate or severe pain, provider allows for administration of a medication prescribed for a lower pain scale. Based on patient request - if ordered for moderate or severe pain, provider allows for administration of a medication prescribed for a lower pain scale. Do not exceed 4 grams of acetaminophen in a 24 hr period. Max dose of 2gm for AST/ALT greater than 120 units/L. If given for pain, use the following pain scale: Mild Pain = Pain Score of 1-3, CPOT 1-2 Moderate Pain = Pain Score of 4-6, CPOT 3-4 Severe Pain = Pain Score of 7-10, CPOT 5-8 1705 (Given - Provider: Ivy Álvarez, RN) 0931 (Given - Provider: Ivy Álvarez, RN) benzocaine (AMERICAINE) 20 % rectal ointment 1 Application 1 Application, Rectal, As Needed, Hemorrhoids, Starting on Fri05/10/25 at 1400, May leave at bedside. (SP) 1434 (Given - Provider: Ivy Álvarez, RN) 1155 (Given - Provider: Rob Fernández RN) benzocaine-menthol (DERMOPLAST) 20-0.5 % topical spray Topical, As Needed, Mild Pain, perineal pain, Starting on Fri05/10/25 at 1400, May leave at bedside. If given for pain, use the following pain scale: Mild Pain = Pain Score of 1-3, CPOT 1-2 Moderate Pain = Pain Score of 4-6, CPOT 3-4 Severe Pain = Pain Score of 7-10, CPOT 5-8 1434 (Given - Provider: Ivy Álvarez RN) 1155 (Given - Provider: Rob Fernández RN) calcium carbonate (TUMS) chewable tablet 500 mg (200 mg elemental) 1 tablet, Oral, 3 Times Daily PRN, Heartburn, Starting on Fri05/10/25 at 1400, One tablet contains 200 mg elemental calcium. Take with food. carboprost (HEMABATE) injection 250 mcg 250 mcg, Intramuscular, As Needed, bleeding, Starting on Fri05/10/25 at 1400, DO NOT administer IV Refrigerate. Use filter needle to withdraw dose. diphenhydrAMINE (BENADRYL) capsule 25 mg 25 mg, Oral, Nightly PRN, Sleep, Starting on Fri05/10/25 at 1400, Caution: Look alike/sound alike drug alert. This med may be ordered in other forms and routes. Before giving verify the last time the drug was given by any route/form. HYDROcodone-acetaminophen (NORCO) 10-325 MG per tablet 1 tablet(Linked Group 2) 1 tablet, Oral, Every 4 Hours PRN, Severe Pain, Starting on Fri05/10/25 at 1400, For 7 days, Based on patient request - if ordered for moderate or severe pain, provider allows for administration of a medication prescribed for a lower pain scale. [KELLI] Do not exceed 4 grams of acetaminophen in a 24 hr period. Max dose of 2gm for AST/ALT greater than 120 units/L If given for pain, use the following pain scale: Mild Pain = Pain Score of 1-3, CPOT 1-2 Moderate Pain = Pain Score of 4-6, CPOT 3-4 Severe Pain = Pain Score of 7-10, CPOT 5-8 0112 (Not Given: See Alt - Provider: Verona Mayorga RN) HYDROcodone-acetaminophen (NORCO) 5-325 MG per tablet 1 tablet(Linked Group 2) 1 tablet, Oral, Every 4 Hours PRN, Moderate Pain, Starting on Fri05/10/25 at 1400, For 7 days, Based on patient request - if ordered for moderate or severe pain, provider allows for administration of a medication prescribed for a lower pain scale. [KELLI] Do not exceed 4 grams of acetaminophen in a 24 hr period. Max dose of 2gm for AST/ALT greater than 120 units/L If given for pain, use the following pain scale: Mild Pain = Pain Score of 1-3, CPOT 1-2 Moderate Pain = Pain Score of 4-6, CPOT 3-4 Severe Pain = Pain Score of 7-10, CPOT 5-8 0112 (Given - Provider: Verona Mayorga RN) Hydrocortisone (Perianal) (ANUSOL-HC) 2.5 % rectal cream 1 Application 1 Application, Rectal, As Needed, Hemorrhoids, Starting on Fri05/10/25 at 1400, May leave at bedside ibuprofen (ADVIL,MOTRIN) tablet 600 mg 600 mg, Oral, Every 6 Hours PRN, Mild Pain, First Line: Mild pain., Starting on Fri05/10/25 at 1400, Based on patient request - if ordered for moderate or severe pain, provider allows for administration of a medication prescribed for a lower pain scale. If given for pain, use the following pain scale: Mild Pain = Pain Score of 1-3, CPOT 1-2 Moderate Pain = Pain Score of 4-6, CPOT 3-4 Severe Pain = Pain Score of 7-10, CPOT 5-8 1434 (Given - Provider: Ivy Álvarez RN)2258 (Given - Provider: Verona Mayorga RN) 1141 (Given - Provider: Ivy Álvarez RN) lanolin cream 1 Application 1 Application, Topical, Every 1 Hour PRN, Dry Skin, nipple pain, Starting on Fri05/10/25 at 1400, May keep at bedside. 1434 (Given - Provider: Ivy Álvarez RN) 1155 (Given - Provider: Rob Fernández RN) magnesium hydroxide (MILK OF MAGNESIA) suspension 10 mL 10 mL, Oral, Daily PRN, Constipation, Starting on Fri05/10/25 at 1400 methylergonovine (METHERGINE) injection 200 mcg 200 mcg, Intramuscular, Once As Needed, bleeding, Starting on Fri05/10/25 at 1400, For 1 dose, Group 2 ([place]) Hazardous Drug - Reproductive Risk Only - See Handling Guide miSOPROStol (CYTOTEC) tablet 800 mcg 800 mcg, Oral, As Needed, for PP bleeding, Starting on Fri05/10/25 at 1400, Group 2 ([place]) Hazardous Drug - Reproductive Risk Only - See Handling Guide ondansetron (ZOFRAN) injection 4 mg (COMPLETED) 4 mg, Intravenous, Once As Needed, Nausea, Vomiting, Starting on Fri05/10/25 at 0130, For 1 dose 0158 (Given - Provider: Tisha Espitia, RN) ondansetron (ZOFRAN) injection 4 mg 4 mg, Intravenous, Every 6 Hours PRN, Nausea, Vomiting, Starting on Fri05/10/25 at 1400, If BOTH ondansetron (ZOFRAN) and promethazine (PHENERGAN) are ordered use ondansetron first and THEN promethazine IF ondansetron is ineffective. ondansetron ODT (ZOFRAN-ODT) disintegrating tablet 4 mg 4 mg, Oral, Every 8 Hours PRN, Nausea, Vomiting, Starting on Fri05/10/25 at 1400, If BOTH ondansetron (ZOFRAN) and promethazine (PHENERGAN) are ordered use ondansetron first and THEN promethazine IF ondansetron is ineffective. Place on tongue and allow to dissolve. oxytocin (PITOCIN) 30 units in 0.9% sodium chloride 500 mL (premix) 125 mL/hr, Intravenous, Continuous PRN, PRN Bleeding for 1 Bag, Starting on Fri05/10/25 at 1400, Consider 2nd agent prophylactically. Only order if patient is at high risk of bleeding and will need an additional bag (2 total). Group 2 ([place]) Hazardous Drug - Reproductive Risk Only - See Handling Guide promethazine (PHENERGAN) tablet 12.5 mg 12.5 mg, Oral, Every 4 Hours PRN, Nausea, Vomiting, Starting on Fri05/10/25 at 1400, If BOTH ondansetron (ZOFRAN) and promethazine (PHENERGAN) are ordered use ondansetron first and THEN promethazine IF ondansetron is ineffective. ([facility]) simethicone (MYLICON) chewable tablet 80 mg 80 mg, Oral, 4 Times Daily PRN, Flatulence, Starting on Fri05/10/25 at 1400 sodium chloride 0.9 % flush 1-10 mL 1-10 mL, Intravenous, As Needed, Line Care, Starting on Fri05/10/25 at 1400 witch estiven-glycerin (TUCKS) pad Topical, As Needed, Irritation, Hemorrhoids, Starting on Fri05/10/25 at 1400, May leave at bedside. 1433 (Given - Provider: Ivy Álvarez, RN) 1155 (Given - Provider: Rob Fernández RN) Linked Groups Order Group 1: oxytocin (PITOCIN) 30 units in 0.9% sodium chloride 500 mL (premix) (COMPLETED)Jump to med 999 mL/hr, Intravenous, Once, On Fri05/10/25 at 1230, For 1 dose, Infuse 250 ml at 999 ml/hr. If patient has a previous bag with remaining volume, please use remainder of that bag to avoid waste. Group 2 ([place]) Hazardous Drug - Reproductive Risk Only - See Handling Guide Followed by oxytocin (PITOCIN) 30 units in 0.9% sodium chloride 500 mL (premix) ()Jump to med 250 mL/hr, Intravenous, Continuous, Starting on Fri05/10/25 at 1245, For 1 hour, Infuse at 250 ml/hr for remaining volume in bag. Group 2 ([place]) Hazardous Drug - Reproductive Risk Only - See Handling Guide Group 2: HYDROcodone-acetaminophen (NORCO) 5-325 MG per tablet 1 tabletJump to med 1 tablet, Oral, Every 4 Hours PRN, Moderate Pain, Starting on Fri05/10/25 at 1400, For 7 days, Based on patient request - if ordered for moderate or severe pain, provider allows for administration of a medication prescribed for a lower pain scale. [KELLI] Do not exceed 4 grams of acetaminophen in a 24 hr period. Max dose of 2gm for AST/ALT greater than 120 units/L If given for pain, use the following pain scale: Mild Pain = Pain Score of 1-3, CPOT 1-2 Moderate Pain = Pain Score of 4-6, CPOT 3-4 Severe Pain = Pain Score of 7-10, CPOT 5-8 Or HYDROcodone-acetaminophen (NORCO) 10-325 MG per tablet 1 tabletJump to med 1 tablet, Oral, Every 4 Hours PRN, Severe Pain, Starting on Fri05/10/25 at 1400, For 7 days, Based on patient request - if ordered for moderate or severe pain, provider allows for administration of a medication prescribed for a lower pain scale. [KELLI] Do not exceed 4 grams of acetaminophen in a 24 hr period. Max dose of 2gm for AST/ALT greater than 120 units/L If given for pain, use the following pain scale: Mild Pain = Pain Score of 1-3, CPOT 1-2 Moderate Pain = Pain Score of 4-6, CPOT 3-4 Severe Pain = Pain Score of 7-10, CPOT 5-8 documented in this encounter Care Teams Tester [employer]ocket [employer] Relationship Specialty Start Date End Date Michelle Nino PA [address] [id number] PCP - General Physician Fill Manager 03/09/21 documented as of this encounter
--- OUTSIDE RECORDS SUMMARY | 2025-05-10 00:40 | XMS_ITS | Encounter Summary ---
[facility] Address [address] [place] [address] Care Team Providers Care Concrete Fence Builder Name Role Phone Michelle Nino Primary Care Provider [phone] Reason for Visit * Auth/Cert (Routine) Specialty Diagnoses / Procedures Referred By Dorina t Referred To Contact Diagnoses Term Referral ID Status Reason Start Date Expiration Date Visits Re quested Visits Authorized [id number] 1 1 Encounter Details Date Type Department Care Team (Late st Contact Info) Description 05/10/2025 1:40 AM EDT Anesthesia Event [facility] DELIVERY [address] [place] [id number] Lori Claros DO [address] [place] [address] Anesthesia Record Procedure Summary Procedure Name Responsible Anesthesiologist Anesthesia Start Time Anesthesia Stop Time LABOR ANALGESIA Kurt Claros DO 05/10/25 0140 05/10/25 1147 Events Date Time Event Comment 05/10/2025 0140 0140 An Start The patient was reevaluated immediately before moderate or deep sedation use and before anesthesia induction. 0140 Face Time 0140 ANPATVER 1147 An Stop Meds Name Total fentaNYL (SUBLIMAZE) injection 15 mcg fentaNYL (SUBLIMAZE) injection 85 mcg bupivacaine PF (MARCAINE) injection 0.5% 2.5 mg lidocaine 1.5%-EPINEPHrine PF 1:200,000 (XYLOCAINE W/EPI) injection 8 mL ropivacaine (NAROPIN) 0.2 % injection 11 5 mL * Agents No agents on file. * Blood No blood administrations on file. Lines, Drains, and Airways Type Details Placement Removal Peripheral IV Placement Date: 05/10/25; Placement Time: 001; Catheter Size: 16 G; Orientation: Posterior, Right; Location: Forearm; Technique: Anatomical landmarks; Inserted by: ALBINO Persaud; Insertion Attempts: 1; Patient Tolerance: Tolerated well; Removal Date: 05/11/25; Removal Time: 0949 05/10/25 0015 by Tisha Alaniz RN 05/11/25 0949 by Ivy Álvarez RN Epidural Placement Date: 05/10/25; Placement Time: 0208 (created via procedure documentation); Removal Date: 05/10/25; Removal Time: 0209 (removed via procedure documentation) 05/10/25 0208 by Lori Claros DO 05/10/25 0209 by Lori Claros DO Epidural Placement Date: 05/10/25; Placement Time: 0209 (created via procedure documentation); Pt Tolerance: Tolerated well; Removal Date: 05/10/25; Removal Time: 1315 05/10/25 0209 by Lori Claros DO 05/10/25 1315 by Apolinar Ibrahim RN Urethral Catheter Placement Date: 05/10/25; Placement Time: 0228; Inserted by: ALBINO Persaud; Type: Silicone; Size: 16 Fr.; Balloon Size: 10 mL; Urine Returned: Yes; Removal Date: 05/10/25; Removal Time: 1112; Removal Reason: Per order 05/10/25 0228 by Tisha Alaniz RN 05/10/25 1112 by Apolinar Ibrahim RN documented in this encounter Social History Tobacco Use Types Packs/Day Years [...] things needed for daily living? No 04/24/2023 [place] Depression Scale Answer Date Recorded [place] Depression Scale Total 0 05/10/2025 The thought [...] and heating? Not hard at all 05/10/2025 [facility] - Occupational Stress [...] things needed for daily living? No 05/10/2025 [facility] Utilities Answer Date Recorded In [...] GED or equivalent No 05/10/2025 Preferred Language Indian 05/10/2025 PHQ-2 Answer Date Recorded Patient Health Questionnaire-2 Score 0 05/10/2025 Comments No Sex and Gender Information Value Date Recorded Sex Assigned at Not on file Legal Sex Female 4:39 PM EDT Gender Identity Not on file Sexual Orientation Not on file documented as of this encounter Functional Status * AUDIT-C Score Answer Date of Assessment Author 0 05/10/2025 1:00 AM Tisha Etienne RN * Question Answer Date of Assessment Author Q1: How often do you have a drink containing alcohol? Never 05/10/2025 1:00 AM Tisha Centeno RN Q2: How many drinks containing alcohol do you have on a typical day when you are drinking? Patient does not drink 05/10/2025 1:00 AM EDT Tisha Alaniz RN Q3: How often do you have six or more drinks on one occasion? Never 05/10/2025 1:00 AM EDT Tisha Alaniz RN * Over the past 2 weeks, how often have you been bothered by any of the following problems? Question Answer Date of Assessment Author Patient Health Questionnaire -2 Score 0 05/10/2025 1:00 AM EDT Kirk Alaniz RN * Question Answer Date of Assessment Author Little interest or pleasure in doing things Not at all 05/10/2025 1:00 AM EDKirk Duke RN Feeling down, depressed, or hopeless Not at all 05/10/2025 1:00 AM EDT Kirk Alaniz RN documented as of this encounter OR Notes * Anesthesia Postprocedure Evaluation - Lori Claros DO - 05/11/2025 9:35 AM EDT Patient: Shayna Felder Procedure Summary Date: 05/10/25 Room / Location: Anesthesia Start: 0140 Anesthesia Stop: 1147 Procedure: LABOR ANALGESIA Diagnosis: Scheduled Providers: Provider: Lori Claros DO Anesthesia Type: CSE ASA Status: 2 Anesthesia Type: CSE Vitals Vitals Value Taken Time BP 115/70 05/11/25 08:05 Temp 98 ??F (36.7 ??C) 05/11/25 08:05 Pulse 80 05/11/25 08:05 Resp 16 05/11/25 08:05 SpO2 100 % 05/10/25 02:07 Post Anesthesia Care and Evaluation Patient location during evaluation: bedside Patient participation: complete - patient participated Level of consciousness: awake and awake and alert Pain score: 0 Pain management: satisfactory to patient Airway patency: patent Anesthetic complications: No anesthetic complications PONV Status: none Cardiovascular status: acceptable, hemodynamically stable and stable Respiratory status: acceptable Hydration status: stable Post Neuraxial Block status: Motor and sensory function returned to baseline and No signs or symptoms of PDPH * Anesthesia Procedure Notes - Lori Claros DO - 05/10/2025 2:08 AM EDTAssociated Order(s): Labor Epidural Labor Epidural Patient reassessed immediately prior to procedure Patient location during procedure: OB Performed By Anesthesiologist: Lori Claros DO Preanesthetic Checklist Completed: patient identified, IV checked, risks and benefits discussed, surgical consent, monitorsand equipment checked, pre-op evaluation and timeout performed Additional Notes Heme aspirated from epidural catheter from CSE placement after pt laid down. Epidural replaced as shown above. Prep: Pt Position:sitting Nursing Techn:cap, gloves, mask and sterile barrier Prep:chlorhexidine gluconate and isopropyl alcohol Monitoring:blood pressure monitoring and continuous pulse oximetry Epidural Block Procedure: Approach:midline Guidance:palpation technique Location:L3-L4 Needle Type:Tuohy Needle Gauge:17 G Loss of Resistance Medium: air Loss of Resistance: 5cm Cath Depth at skin:12 cm Paresthesia: none Aspiration:negative Test Dose:negative Number of Attempts: 1 Post Assessment: Dressing:occlusive dressing applied and secured with tape Pt Tolerance:patient tolerated the procedure well with no apparent complications Complications:no * Anesthesia Procedure Notes - Lori Claros DO - 05/10/2025 2:07 AM EDTAssociated Order(s): CSE Block CSE Block Patient reassessed immediately prior to procedure Patient location during procedure: OB Start time: 05/10/2025 1:39 AM Reason for block: labor pain Staffing Authorized by: Lori Claros DO Performed by: Lori Claros DO Preanesthetic Checklist Completed: patient identified, IV checked, site marked, risks and benefits discussed, surgical consent, monitors and equipment checked, pre-op evaluation and timeout performed CSE Patient position: sitting Prep: ChloraPrep Patient monitoring: continuous pulse oximetry and blood pressure monitoring Procedures: palpation technique Spinal Needle Needle type: Yvonne Needle gauge: 25 G Approach: midline Location: L3-4 Fluid Appearance: clear Epidural Needle Injection technique: SHWETA air Needle type: Tuohy Needle gauge: 17 G Location: L3-L4 Loss of Resistance: 5cm Cath Depth at Skin (cm): 12 Aspiration: negative Test dose: negative Catheter Catheter type: side hole Catheter size: 20 G Assessment Dressing:occlusive dressing applied and secured with tape Pt Tolerance:patient tolerated the procedure well with no apparent complications Complications:no * Anesthesia Preprocedure Evaluation - Lori Claros DO - 05/10/2025 1:30 AM EDT Anesthesia Evaluation Patient summary reviewed and Nursing notes reviewed Airway Mallampati: II TM distance: >3 FB Neck ROM: full No difficulty expected Dental - normal exam Pulmonary - negative pulmonary ROS Cardiovascular - negative cardio ROS Neuro/Psych- negative ROS GI/Hepatic/Renal/Endo - negative ROS Musculoskeletal (-) negative ROS Abdominal Substance History - negative use 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 CODE STATUS: Code Status (Patient has no pulse and is not breathing): CPR (Attempt to Resuscitate) Medical Interventions (Patient has pulse or is breathing): Full Support Level Of Support Discussed With: Patient documented in this encounter Plan of Treatment Not on file documented as of this encounter Procedures Procedure Name Priority Date/Time Associated Diagnosis Comments HC BH AN LABOR EPIDURAL KIT Routine 05/10/2025 2:08 AM EDT ANESTHESIA CSE BLOCK Routine 05/10/2025 1:39 AM EDT documented in this encounter Results * HC AN LABOR EPIDURAL KIT (05/10/2025 2:08 AM EDT) Narrative Lori Claros DO - 05/10/2025 2:08 AM EDT Lori Claros DO 05/10/2025 2:09 AM Labor Epidural Patient reassessed immediately prior to procedure Patient location during procedure: OB Performed By Anesthesiologist: Lori Claros DO Preanesthetic Checklist Completed: patient identified, IV checked, risks and benefits discussed, surgical consent, monitors and equipment checked, pre-op evaluation and timeout performed Additional Notes Heme aspirated from epidural catheter from CSE placement after pt laid down. Epidural replaced as shown above. Prep: Pt Position:sitting Nursing Techn:cap, gloves, mask and sterile barrier Prep:chlorhexidine gluconate and isopropyl alcohol Monitoring:blood pressure monitoring and continuous pulse oximetry Epidural Block Procedure: Approach:midline Guidance:palpation technique Location:L3-L4 Needle Type:Tuohy Needle Gauge:17 G Loss of Resistance Medium: air Loss of Resistance: 5cm Cath Depth at skin:12 cm Paresthesia: none Aspiration:negative Test Dose:negative Number of Attempts: 1 Post Assessment: Dressing:occlusive dressing applied and secured with tape Pt Tolerance:patient tolerated the procedure well with no apparent complications Complications:no Lori Guerrero DO ANESTHESIA ORDERAB LES Final Result * CSE Block (05/10/2025 1:39 AM EDT) Narrative Lori Claros DO - 05/10/2025 1:39 AM EDT Lori Claros DO 05/10/2025 2:08 AM CSE Block Patient reassessed immediately prior to procedure Patient location during procedure: OB Start time: 05/10/2025 1:39 AM Reason for block: labor pain Staffing Authorized by: Lori Claros DO Performed by: Lori Claros DO Preanesthetic Checklist Completed: patient identified, IV checked, site marked, risks and benefits discussed, surgical consent, monitors and equipment checked, pre-op evaluation and timeout performed CSE Patient position: sitting Prep: ChloraPrep Patient monitoring: continuous pulse oximetry and blood pressure monitoring Procedures: palpation technique Spinal Needle Needle type: Yvonne Needle gauge: 25 G Approach: midline Location: L3-4 Fluid Appearance: clear Epidural Needle Injection technique: SHWETA air Needle type: Tuohy Needle gauge: 17 G Location: L3-L4 Loss of Resistance: 5cm Cath Depth at Skin (cm): 12 Aspiration: negative Test dose: negative Catheter Catheter type: side hole Catheter size: 20 G Assessment Dressing:occlusive dressing applied and secured with tape Pt Tolerance:patient tolerated the procedure well with no apparent complications Complications:no Lori Snell Yolanda DO ANESTHESIA ORDERAB LES Final Result documented in this encounter Visit Diagnoses Not on filedocumented in this encounter Administered Medications Inactive Administered Medications - up to 3 most recent administrations Medication Order MAR Action Action Date Dose Rate Site bupivacaine (PF) (MARCAINE) 0.5 % injection Intrathecal, As Needed, Starting on Fri05/10/25 at 0149 Given 05/10/2025 1:49 AM EDT 2.5 mg fentaNYL citrate (PF) (SUBLIMAZE) injection Intrathecal, As Needed, Starting on Fri05/10/25 at 0149 Given 05/10/2025 1:49 AM EDT 15 mcg fentaNYL citrate (PF) (SUBLIMAZE) injection Epidural, As Needed, Starting on Fri05/10/25 at 0209 Given 05/10/2025 2:09 AM EDT 85 mcg Lidocaine-EPINEPHrine (PF) (XYLOCAINE W/EPI) 1.5 %-[id number] injection Epidural, As Needed, Starting on Fri05/10/25 at 0152 Given 05/10/2025 2:03 AM EDT 3 mL Given 05/10/2025 1:55 AM EDT 2 mL Given 05/10/2025 1:52 AM EDT 3 mL ropivacaine (NAROPIN) 0.2 % injection 15 mL/hr, Epidural, Continuous, Starting on Fri05/10/25 at 0230, Anesthesiologist To Adjust Rate As Needed. RN May Replace Epidural Infusion Fluids As Ordered New Bag 05/10/2025 2:12 AM EDT 12 mL/hr 12 m L/hr documented in this encounter Care Teams Concrete Fence Builder Relationship Specialty Start Date End Date Michelle Nino PA [address] [facility] [address] PCP - General Physician Contact Agent 03/09/21 documented as of this encounter
[2025-05-28] VITALS (16 sets, daily range): BP systolic 100–146; BP diastolic 61–90; PULSE 58–130; RESP 12–22; TEMP 36.3–37.7; O2SAT 95–98; BMI 25.6
--- OUTSIDE RECORDS SUMMARY | 2025-05-28 01:25 | XMS_ITS | Clinical Summary ---
Author Organization [facility] Address [address] [place] [address] Care Team Providers Care Water/Wastewater Project Manager Name Role Phone Michelle Nino Primary Care Provider [phone] Allergies Active Allergy Reactions Criticality Noted Date Comments Butorphanol Palpitations Low 09/18/2022 Medications ferrous sulfate 325 (65 FE) MG tablet Take 1 tablet by mouth 2 (Two) Times a Day With Meals. 60 tablet 03/12/2021 10:04 AM EDT 1 Active ondansetron ODT (ZOFRAN-ODT) [address] 1 tablet on the tongue Every 8 (Eight) Hours As Needed for Nausea or Vomiting. 30 tablet 3 Active ibuprofen (ADVIL,MOTRIN) 600 MG tablet Take 1 tablet by mouth Every 6 (Six) Hours As Needed for Mild Pain. 60 tablet 1 05/12/2025 10:14 AM EDT 5 Active docusate sodium 100 MG capsule Take 1 capsule by mouth 2 (Two) Times a Day As Needed for Constipatio n. 60 capsule 1 05/12/2025 10:14 AM EDT 5 Active docusate sodium (Colace) 100 MG capsule Take 1 capsule by mouth 2 (Two) Times a Day. 60 capsule 1 06/27/2021 12:07 PM EST 1 05/10/20 25 Discontin ued(*Ther apy completed ) ibuprofen (ADVIL,MOTRIN) 600 MG tablet Take 1 tablet by mouth 3 (Three) Times a Day. 15 tablet 4 05/12/20 25 Discontin ued(Stop Taking at Discharge ) FLUoxetine (PROzac) 10 MG capsule Take 1 capsule by mouth Daily. 05/12/20 25 Discontin ued(Stop Taking at Discharge ) Active Problems Problem Noted Date Diagnosed Date (spontaneous vaginal delivery) 05/12/2025 (spontaneous vaginal delivery) 04/25/2023 anemia 03/11/2021 Normal spontaneous vaginal delivery 03/10/2021 Resolved Problems Problem Noted Date Diagnosed Date Resolved Date Term 05/09/2025 05/12/2025 Term 04/24/2023 04/25/2023 Post term at 41 weeks gestation 03/09/2021 03/10/2021 Encounter for elective induction of labor 03/09/2021 03/10/2021 Encounters Date Type Department Care Team Description 05/23/2025 Maternal Screening [facility] NURSE CALL CENTER [address] [place] [address] Mary Esparza, RN 05/13/2025 Maternal Screening [facility] NURSE CALL CENTER [address] [place] [address] Rafia Hill RN 05/10/2025 1:40 AM EDT Anesthesia Event [facility] LABOR DELIVERY [address] [place] [address] Lori Claros DO 05/09/2025 10:22 PM EDT - 05/12/2025 12:10 PM EDT Hospital Encounter [facility] MOTHER BABY [address] [facility] [address] Aida Olsen MD 39 weeks gestation of Discharge Disposition: Home or Self Care 05/09/2025 Travel 05/09/2025 Prep for Surgery [facility] ORDERS ONLY [address] [place] [address] Carlota Buchanan MD 39 weeks gestation of (Primary Dx) 04/27/2025 9:44 AM EDT - 04/27/2025 10:35 AM EDT Hospital Encounter [facility] OBSTETRIC EMERGENCY DEPARTMENT [address] [place] [id number] Aida Olsen MD Lewellen, Thomas L, DO Discharge Disposition: Home or Self Care 04/27/2025 Travel 02/25/2025 2:15 PM EDT Lab [facility] LABORATORY [place] [address] [place] [address] care, subsequent , second trimester 02/25/2025 Travel from Last 3 Months Family History Medical History Relation Name Comments No Known Problems Brother Diabetes Father Hypertension Father No Known Problems Mother Relation Name Status Comments Brother Alive Father Alive Mother Alive Social History Tobacco Use Types Packs/Day Years [...] things needed for daily living? No 04/24/2023 [place] Depression Scale Answer Date Recorded [place] Depression Scale Total 0 05/23/2025 The thought of harming myself has occurred to me . Never 05/23/2025 AUDIT-C Answer Date Recorded Q1: How often [...] and heating? Not hard at all 05/10/2025 [facility] [place] of Occupat ional Health - Occupational Stress [...] money to buy more. Never true 05/10/20 Within the past 12 months, t he [...] things needed for daily living? No 05/10/2025 [facility] Utilities Answer Date Recorded In the past 12 months has th [employer] electric, gas, oil, or water company threatened [...] GED or equivalent No 05/10/2025 Preferred Language Cape Verdean 05/10/2025 PHQ-2 Answer Date Recorded Patient Health Questionnaire-2 Score 0 05/10/2025 Comments No Sex and Gender Information Value Date Recorded Sex Assigned at Not on file Legal Sex Female 4:39 PM EDT Gender Identity Not on file Sexual Orientation Not on file Last Filed Vital Signs Vital Sign Reading [...] Mass Index 30.54 05/09/2025 10:41 PM EDT Plan of Treatment Health Maintenance Due Date Last Done Comments Annual Gynecologic Pelvic and Breast Exam 1999 HPV VACCINES (3 - 3-dose series) 01/08/2018 10/16/2017, 03/25/2017 ANNUAL PHYSICAL 05/07/2020 TDAP/TD VACCINES (4 - Td or Tdap) 02/19/2033 02/19/2023, 12/15/2020, 05/21/2011 CHLAMYDIA SCREENING Discontinued 11/05/2024, 09/24/2023, 08/11/2020 HEPATITIS C SCREENING Completed 11/05/2024 , 10/15/2022, 08/11/2020 INFLUENZA VACCINE Completed 04/14/2025 Pneumococcal Vaccine 0-49 Aged Out No longer eligible based on patient's age to complete this topic Procedures Procedure Name Priority Date/Time Associated Diagnosis Comments CBC AND DIFFERENTIAL Routine 05/11/2025 4:57 AM EDT CBC WITH AUTO DIFFERENTIAL Routine 05/11/2025 4:57 AM EDT BLOOD GAS, ARTERIAL, CORD Routine 05/10/2025 12:17 PM EDT BLOOD GAS, VENOUS, CORD Routine 05/10/2025 12:12 PM EDT HC BH AN LABOR EPIDURAL KIT Routine 05/10/2025 2:08 AM EDT ANESTHESIA CSE BLOCK Routine 05/10/2025 1:39 AM EDT TYPE AND SCREEN Routine 05/10/2025 12:16 AM EDT TREPONEMA PALLIDUM AB W/REFLEX RPR Routine 05/10/2025 12:16 AM EDT CBC (NO DIFF) Routine 05/10/2025 12:16 AM EDT TISSUE PATHOLOGY EXAM Routine 05/09/2025 11:20 PM EDT URINALYSIS, MICROSCOPIC ONLY STAT 04/27/2025 10:09 AM EDT URINALYSIS W/ MICROSCOPIC IF INDICATED (NO CULTURE) STAT 04/27/2025 10:09 AM EDT URINE CULTURE STAT 04/27/2025 10:09 AM EDT NONSTRESS TEST Routine 04/27/2025 10:04 AM EDT CBC (NO DIFF) Routine 02/25/2025 3:21 PM EDT care, subsequent , second trimester POCT POST GLUCOSE TOLERANCE Routine 02/25/2025 3:14 AM EDT care, subsequent , second trimester TREPONEMA PALLIDUM AB W/REFLEX RPR Routine 02/25/2025 3:14 AM EDT care, subsequent , second trimester GLUCOSE, POST 50 GM GLUCOLA Routine 02/25/2025 3:14 AM EDT care, subsequent , second trimester CHLAMYDIA TRACHOMATIS, NEISSERIA GONORRHOEAE, PCR Routine 11/05/2024 4:20 PM EDT care, subsequent , first trimester 12 weeks gestation of HEPATITIS C ANTIBODY Routine 11/05/2024 4:20 PM EDT care, subsequent , first trimester 12 weeks gestation of from Last 3 Months or Most Recently Relevant to Health Maintenance Results * (ABNORMAL) CBC Auto Differential (05/11/2025 4:57 AM EDT) [facility] WBC 13.81(H) 3.40 - 10.80 10*3/mm3 05/11/2025 5:32 AM EDT [facility] LABOR[facility] RBC 3.14(L) 3.77 - 5.28 10*6/mm3 05/11/2025 5:32 AM EDT [facility] Hemoglobin 8.2(L) 12.0 - 15.9 g/dL 05/11/2025 5:32 AM EDT [facility] Hematocrit 27.4(L) 34.0 - 46.6 % 05/11/2025 5:32 AM EDT [facility] MCV 87.3 79.0 - 97.0 fL 05/11/2025 5:32 AM EDT [facility] MCH 26.1(L) 26.6 - 33.0 pg 05/11/2025 5:32 AM EDT [facility] MCHC 29.9(L) 31.5 - 35.7 g/dL 05/11/2025 5:32 AM EDT [facility] RDW 13.7 12.3 - 15.4 % 05/11/2025 5:32 AM EDT [facility] RDW-SD 43.2 37.0 - 54.0 fl 05/11/2025 5:32 AM EDT [facility] MPV 11.0 6.0 - 12.0 fL 05/11/2025 5:32 AM EDT [facility] Platelets 163 140 - 450 10*3/mm3 [facility] Neutrophil % 79.4(H) 42.7 - 76.0 % 05/11/2025 5:32 AM EDT [facility] Lymphocyte % 14.0(L) 19.6 - 45.3 % 05/11[facility]2025 [facility] Monocyte % 5.4 5.0 - 12.0 % 05/11/2025 5:32 AM [facility] Eosinophil % 0.4 0.3 - 6.2 % 05/11/2025 5:32 AM [facility] Basophil % 0.3 0.0 - 1.5 % 05/11/2025 5:32 AM [facility] Immature Grans % 0.5 0.0 - 0.5 % 05/11/2025 5:32 AM [facility] Neutrophils, Absolute 10.97(H) 1.70 - 7.00 10*3/mm3 05/11/2025 5:32 AM [facility] Lymphocytes, Absolute 1.93 0.70 - 3.10 10*3/mm3 05/11/2025 5:32 AM [facility] Monocytes, Absolute 0.75 0.10 - 0.90 10*3/mm3 05/11/2025 5:32 AM [facility] Eosinophils, Absolute 0.05 0.00 - 0.40 10*3/mm3 05/11/2025 5:32 AM [facility] Basophils, Absolute 0.04 0.00 - 0.20 10*3/mm3 05/11/2025 5:32 AM [facility] Immature Grans, Absolute 0.07(H) 0.00 - 0.05 10*3/mm3 05/11/2025 5:[facility] nRBC 0.0 0.0 - 0.2 /100 WBC 05/11/2025 5:32 AM EDT [facility] LABOR[facility] Blood Venipuncture / Unknown 05/11/2025 4:57 AM EDT 05/11/2025 5:26 AM EDT Stacy Almaraz DO LAB BLOOD ORDERABLES Final R esult [facility] LABORATORY
[address] [place] [address], * (ABNORMAL) Blood Gas, Arterial, Cord (05/10/2025 12:17 PM EDT) Site Umbilical 05/10/2025 12:23 PM EDT [facility] RESPIRATORY THERAPY pH, Cord Arterial 7.12(LL) 7.22 - 7.30 pH Units 05/10/2025 12:23 PM EDT [facility] RESPIRATORY THERAPY Comment:85 Value below criti mitesh limit pCO2, Cord Arterial 70.8(HH) 43.3 - 54.9 mmHg 05/10/2025 12:23 PM EDT [facility] RESPIRATORY THERAPY pO2, Cord Arterial 23.8 11.5 - 43.3 mmHg 05/10/2025 12:23 PM EDT [facility] RESPIRATORY THERAPY HCO3, Cord Arterial 23.0(H) 16.9 - 20.5 mmol/L 05/10/2025 12:23 PM EDT [facility] RESPIRATORY THERAPY Base Exc, Cord Arterial -8.5(L) 0.0 - 2.0 mmol/L 05/10/2025 12:23 PM EDT [facility] RESPIRATORY THERAPY O2 Sat, Cord Arterial 34.9 % 05/10/2025 12:23 PM EDT [facility] RESPIRATORY THERAPY Hemoglobin, Blood Gas 19.1(H) 14 - 18 g/dL 05/10/2025 12:23 PM EDT [facility] RESPIRATORY THERAPY CO2 Content 25.2 22 - 33 mmol/L 05/10/2025 12:23 PM EDT [facility] RESPIRATORY THERAPY Temperature 37.0 05/10/2025 12:23 PM EDT [facility] RESPIRATORY THERAPY Barometric Pressure for Blood Gas 05/10/2025 12:23 PM EDT [facility] RESPIRATORY THERAPY Comment:N/A Modality Room Air 05/10/2025 12:23 PM EDT [facility] RESPIRATORY THERAPY FIO2 21 % 05/10/2025 12:23 PM EDT [facility] RESPIRATORY THERAPY Ventilator Mode 12:23 PM EDT [facility] RESPIRATORY THERAPY Rate 0 Breaths/m inute 05/10/2025 12:23 PM EDT [facility] RESPIRATORY THERAPY PIP 0 cmH2O 05/10/2025 12:23 PM EDT [facility] RESPIRATORY THERAPY Comment:Meter: [id number] Econometrician: [id number] IPAP 0 05/10/2025 12:23 PM EDT [facility] RESPIRATORY THERAPY EPAP 0 05/10/2025 12:23 PM EDT [facility] RESPIRATORY THERAPY Note 0 05/10/2025 12:23 PM EDT [facility] RESPIRATORY THERAPY Notified Who Tess MCGARRY RN 05/10/2025 12:23 PM EDT [facility] RESPIRATORY THERAPY Notified By [id number] 05/10/2025 12:23 PM EDT [facility] RESPIRATORY THERAPY Notified Time 05/10/2025 12:24 05/10/2025 12:23 PM EDT [facility] RESPIRATORY THERAPY Cord Blood Arterial Umbilical cord structure / Unknown 05/10/2025 12:17 PM EDT 05/10/2025 12:17 PM EDT us Aida Olsen MD LAB BLOOD ORDERABLES Final Re sult [facility] RESPIRATORY THERAPY
[address] * (ABNORMAL) Blood Gas, Venous, Cord (05/10/2025 12:12 PM EDT) Site Umbilical 05/10/2025 12:22 PM EDT [facility] RESPIRATORY THERAPY pH, Cord Venous 7.210(L) 7.310 - 7.370 pH Units 05/10/2025 12:22 PM EDT [facility] RESPIRATORY THERAPY pCO2, Cord Venous 58.1(H) 28.0 - 40.0 mm Hg 05/10/2025 12:22 PM EDT [facility] RESPIRATORY THERAPY pO2, Cord Venous 11.4(L) 21.0 - 31.0 mm Hg 05/10/2025 12:22 PM EDT [facility] RESPIRATORY THERAPY HCO3, Cord Venous 23.2(H) 18.6 - 21.4 mmol/L 05/10/2025 12:22 PM EDT [facility] RESPIRATORY THERAPY Base Excess, Cord Venous -6.0(L) 0.0 - 2.0 mmol/L 05/10/2025 12:22 PM EDT [facility] RESPIRATORY THERAPY O2 Sat, Cord Venous 12.3 % 05/10/2025 12:22 PM EDT [facility] RESPIRATORY THERAPY Hemoglobin, Blood Gas 18.8(H) 14 - 18 g/dL 05/10/2025 12:22 PM EDT [facility] RESPIRATORY THERAPY CO2 Content 25.0 22 - 33 mmol/L 05/10/2025 12:22 PM T [facility] RESPIRATORY THERAPY Temperature 37.0 05/10/2025 12:22 PM T [facility] RESPIRATORY THERAPY Barometric Pressure for Blood Gas 05/10/2025 12:22 PM T [facility] RESPIRATORY THERAPY Comment:N/A Modality Room Air 05/10/2025 12:22 PM EDT [facility] RESPIRATORY THERAPY FIO2 21 % 05/10/2025 12:22 PM EDT [facility] RESPIRATORY THERAPY Rate 0 Breaths/m inute 05/10/2025 12:22 PM EDT [facility] RESPIRATORY THERAPY PIP 0 cmH2O 05/10/2025 12:22 PM EDT [facility] RESPIRATORY THERAPY Comment:Meter: [id number] Econometrician: [id number] IPAP 0 05/10/2025 12:22 PM EDT [facility] RESPIRATORY THERAPY EPAP 0 05/10/2025 12:22 PM EDT [facility] RESPIRATORY THERAPY O2 Saturation Calculated 05/10/2025 12:22 PM EDT [facility] RESPIRATORY THERAPY Comment:Calculated O2 satura tion result not reported at this site. Cord Blood Venous Umbilical cord structure / Unknown 05/10/2025 12:12 PM EDT 05/10/2025 12:12 PM EDT us Aida Olsen MD LAB BLOOD ORDERABLES Final Re sult [facility] RESPIRATORY THERAPY
[address] [place] [address], * HC BH AN LABOR EPIDURAL KIT (05/10/2025 2:08 AM [...] replaced as shown above. Prep: Pt Position:sitting Electrical Systems Designer:cap, gloves, mask and sterile barrier Prep:chlorhexidine gluconate [...] procedure well with no apparent complications Complications:no us Lori Guerrero DO ANESTHESIA ORDERAB LES Final [...] DO ANESTHESIA ORDERAB LES Final Result * Treponema pallidum AB w/Reflex RPR (05/10/2025 12:16 AM EDT) Only the most recent of2 resultswithin the time period is included. Treponemal AB Total Non-Reacti ve Non-React tyrese 05/10/2025 9:47 AM EDT [facility] Blood Venipuncture / Unknown 05/10/2025 12:16 AM EDT 05/10/2025 12:29 AM EDT Narrative [facility] - 05/10/2025 9:47 AM EDT Reactive results will reflex RPR testing. Sidra Hernandez MD LAB BLOOD ORDERABLES Final R esult [facility] LABORATORY
[address] [place] [address], [place] [phone] * (ABNORMAL) CBC (No Diff) (05/10/2025 12:16 AM EDT) Only the most recent of2 resultswithin the time period is included. WBC 11.10(H) 3.40 - 10.80 10*3/mm3 05/10/2025 12:33 AM EDT [facility] RBC 3.31(L) 3.77 - 5.28 10*6/mm3 05/10/2025 12:33 AM EDT [facility] Hemoglobin 8.8(L) 12.0 - 15.9 g/dL 05/10/2025 12:33 AM EDT [facility] Hematocrit 27.9(L) 34.0 - 46.6 % 05/10/2025 12:33 AM EDT [facility] MCV 84.3 79.0 - 97.0 fL 05/10/2025 12:33 AM EDT [facility] MCH 26.6 26.6 - 33.0 pg 05/10/2025 12:33 AM EDT [facility] MCHC 31.5 31.5 - 35.7 g/dL 05/10/2025 12:33 AM EDT [facility] RDW 13.7 12.3 - 15.4 % 05/10/2025 12:33 AM EDT [facility] LAB[facility] RDW-SD 42.2 37.0 - 54.0 fl 05/10/2025 12:33 AM EDT [facility] MPV 11.0 6.0 - 12.0 fL 05/10/2025 12:33 AM EDT [facility] Platelets 210 140 - 450 10*3/mm3 05/10/2025 12:33 AM EDT [facility] Blood Venipuncture / Unknown 05/10/2025 12:16 AM EDT 05/10/2025 12:31 AM EDT Sidra Hernandez MD LAB BLOOD ORDERABLES Final R esult Performing Organization Address [facility] Co de Phone Number [facility] LABORATORY
[address] [place] [address], * Type & Screen (05/10/2025 12:16 AM EDT) ABO Type A 05/10/2025 1:28 AM EDT [facility] BB LABORATORY RH type Positive 05/10/2025 1:28 AM EDT [facility] BB LABORATORY Antibody Screen Negative 05/10/2025 1:28 AM EDT [facility] BB LABORATORY T&S Expiration Date 05/13/2025 11:59:59 PM 05/10/2025 1:28 AM EDT [facility] Blood Venipuncture / Unknown 05/10/2025 12:16 AM EDT 05/10/2025 12:54 AM EDT Sidra Hernandez MD BLOOD BANK TEST ORDERABLES E dited Result - Final Performing Organization Address [facility] Co de Phone Number [facility] LABOR[facility]
[address] [place] [address], * Tissue Pathology Exam (05/09/2025 11:20 PM EDT) Case Report Surgical Pathology Report Case: [id number] Authorizing Provider: Aida Olsen MD Collected: 05/09/2025 11:20 PM Ordering Location: [facility] Received: 05/10/2025 01:26 PM LABOR DELIVERY Pathologist: Rustam Parrish MD Specimen: Placenta 05/12/2025 12:55 PM EDT [facility] LABOR[facility] Clinical Information 38 weeks and 4 days 05/12/2025 12:55 PM EDT [facility] LABOR[facility] Final Diagnosis PLACENTA (444 g): membranes with no acute inflammation or meconium staining. Three-vessel umbilical cord with no significant histopathologic change. Third trimester villous maturation with no histologic features of infection or dysmaturity. 05/12/2025 12:55 PM EDT [facility] LABORATORY at 1255 EDT Gross Description 1. [...] spongy parenchyma with no gross lesions identified. Bowling Floor Manager sections are submitted as follows: 1A-umbilical cord with false knot and membrane roll with thickened area [id number] disc 6X-fivj-xalyaluoy disc at possible cord insertion site. LDP 05/12/2025 12:55 PM EDT [facility] LABOR[facility]ORY Microscopic Description The slides are reviewed and demonstrate histopathologic features supporting the above rendered diagnosis. 05/12/2025 12:55 PM EDT [facility] Tissue Placental structure / Unknown 05/09/2025 11:20 PM EDT 05/10/2025 1:26 PM EDT Aida Olsen MD PATHOLOGY/CYTOLOGY ORDERABLES Final Result [facility] LABORATORY
[address] [place] [address], * (ABNORMAL) Urinalysis, Microscopic Only - Urine, Clean Catch (04/27/2025 10:09 AM EDT) RBC, UA None Seen None Seen, 0-2 /HPF 04/27/2025 10:23 AM EDT [facility] WBC, UA 11-20(A) None Seen, 0-2 /HPF 04/27/2025 10:23 AM EDT [facility] Bacteria, UA 2+(A) None Seen /HPF 04/27/2025 10:23 AM EDT [facility] Squamous Epithelial Cells, UA 13-20(A) None Seen, 0-2 /HPF 04/27/2025 10:23 AM EDT [facility] Hyaline Casts, UA None Seen None Seen /LPF 04/27/2025 10:23 AM EDT [facility] Methodology Automated Microscopy 04/27/2025 10:23 AM EDT [facility] Urine Urine specimen obtained by clean catch procedure / Unknown Collection / Unknown 04/27/2025 10:09 AM EDT 04/27/2025 10:18 AM EDT Martin Veras DO URINE ORDERABLES Final Resu lt [facility] LABORATORY
[address] [place] [address], * (ABNORMAL) Urinalysis With Microscopic If Indicated (No Culture) - Urine, Clean Catch (04/27/2025 10:09 AM EDT) Color, UA Yellow Yellow, Straw 04/27/2025 10:23 AM T [facility] Appearance, UA Cloudy(A) Clear 04/27/2025 10:23 AM EDT [facility] pH, UA 7.5 5.0 - 8.0 04/27/2025 10:23 AM EDT [facility] Specific [place], UA <=1.005 1.005 - 1.030 04/27/2025 10:23 AM EDT [facility] Glucose, UA Negative Negative 04/27/2025 10:23 AM EDT [facility] Ketones, UA Negative Negative 04/27/2025 10:23 AM EDT [facility] Bilirubin, UA Negative Negative [facility] Blood, UA Negative Negative 04/27/2025 10:23 AM EDT [facility] Protein, UA Negative Negative 04/27/2025 10:23 AM EDT [facility] Leuk Esterase, UA Large (3+)(A) Negative 04/27/2025 10:23 AM EDT [facility] Nitrite, UA Negative Negative 04/27/2025 10:23 AM EDT [facility] Urobilinogen, UA 0.2 E.U./dL 0.2 - 1.0 E.U./dL 04/27/2025 10:23 AM EDT [facility] Urine Urine specimen obtained by clean catch procedure / Unknown Collection / Unknown 04/27/2025 10:09 AM EDT 04/27/2025 10:18 AM EDT us Martin Veras DO URINE ORDERABLES Final Resu lt Performing Organization Address City/[facility]/ZIP Co de Phone Number [facility]
[address] [place] [address], [place] [phone] * Urine Culture - Urine, Urine, Clean Catch (04/27/2025 10:09 AM EDT) Urine Culture 50,000 CFU/mL Normal Urogenital Rama ANGELIC 04/28/2025 12:15 PM EDT [facility] Urine Urine specimen obtained by clean catch procedure / Unknown Collection / Unknown 04/27/2025 10:09 AM EDT 04/27/2025 10:18 AM EDT Narrative [facility] - 04/28/2025 12:15 PM EDT Colonization of the urinary tract without infection is common. Treatment is discouraged unless the patient is symptomatic, , or undergoing an invasive urologic procedure. us Martin Veras DO MICROBIOLOGY - GENERAL ORDE RABLES Final Result Performing Organization Address City/[facility]/ZIP Co de Phone Number [facility]
[address] [place] [address], [place] [phone] * POCT Post Glucose Tolerance (02/25/2025 3:14 AM EDT) Blood Venipuncture / Unknown 02/25/2025 3:14 AM EDT 02/25/2025 4:43 PM EDT Aida Olsen MD POINT OF CARE TEST ORDERABLES Final Result Performing Organization Address City/[facility]/ZIP Co de Phone Number [facility]
[address] [place] [address], * Glucose, Post 50 Gm Glucola (02/25/2025 3:14 AM EDT) [facility] Gestational GCT 118 65 - 139 mg/dL 02/25/2025 7:32 PM EDT [facility] Blood Venipuncture / Unknown 02/25/2025 3:14 AM EDT 02/25/2025 4:43 PM EDT Aida Olsen MD LAB BLOOD ORDERABLES Final Re sult Performing Organization Address City/[facility]/ZIP Co de Phone Number [facility]
[address] [place] [address], * Chlamydia trachomatis, Neisseria gonorrhoeae, PCR - Urine, Urine, Clean Catch (11/05/2024 4:20 PM EDT) [facility] Chlamydia by PCR Not Detected Not Detected [employer] 11/06/2024 8:07 AM EDT [facility] Neisseria gonorrhoeae by PCR Not Detected Not Detected [employer]EXP[employer] 11/06/2024 8:07 AM EDT [facility] Urine Urine specimen obtained by clean catch procedure / Unknown Collection / Unknown 11/05/2024 4:20 PM EDT 11/05/2024 4:20 PM EDT Philomena Miner APRN MICROBIOLOGY - GENERAL ORDERABLES Final Result Performing Organization Address City/[facility]/ZIP Co de Phone Number [facility]
[address] [place] [address], * Hepatitis C Antibody (11/05/2024 4:20 PM EDT) Hepatitis C Ab Non-Reacti ve Non-Reacti ve 11/05/2024 11:31 PM EDT [facility] Blood Venipuncture / Unknown 11/05/2024 4:20 PM EDT 11/05/2024 4:20 PM EDT Philomena Miner APRN LAB BLOOD ORDERABLES F inal Result Performing Organization Address [facility] Co de Phone Number [facility]
[address] [place] [address], from Last 3 Months or Most Recently Relevant to Health Maintenance Insurance [employer] [place] Advance Directives * CPR (Attempt to Resuscitate) (Latest Code Status on File) Date Activated Date Inactivated Comments 05/10/2025 2:01 PM 05/12/2025 2:19 PM Question Answer Comments Code Status (Patient has no pulse and is not breathing): CPR (Attempt to Resuscitate) Medical Interventions (Patie nt has pulse or is breathing): Full * CPR (Attempt to Resuscitate) Date Activated Date Inactivated Comments 05/09/2025 11:20 PM 05/10/2025 2:01 PM Question Answer Comments Code Status (Patient has no pulse and is not breathing): CPR (Attempt to Resuscitate) Medical Interventions (Patie nt has pulse or is breathing): Full Support Level Of Support Discussed With: Patient * CPR (Attempt to Resuscitate) Date Activated Date Inactivated Comments 04/25/2023 3:38 PM 04/27/2023 1:39 PM Question Answer Comments Code Status (Patient has no pulse and is not breathing): CPR (Attempt to Resuscitate) Medical Interventions (Patie nt has pulse or is breathing): Full * CPR (Attempt to Resuscitate) Date Activated Date Inactivated Comments 04/24/2023 9:27 PM 04/25/2023 3:38 PM Question Answer Comments Code Status (Patient has no pulse and is not breathing): CPR (Attempt to Resuscitate) Medical Interventions (Patie nt has pulse or is breathing): Full Support * CPR (Attempt to Resuscitate) Date Activated Date Inactivated Comments 03/10/2021 2:41 PM 03/12/2021 3:58 PM Question Answer Comments Code Status (Patient has no pulse and is not breathing): CPR (Attempt to Resuscitate) Medical Interventions (Patie nt has pulse or is breathing): Full Care Teams Water/Wastewater Project Manager Relationship Specialty Start Date End Date Michelle Nino PA [address] [address] PCP - General Physician Clinical Nursing Instructor 03/09/21
--- OUTSIDE RECORDS SUMMARY | 2025-05-28 01:26 | XMS_ITS | Encounter Summary ---
Author Organization [facility] Address [address] [place] [address] Care Team Providers Care Woolen Mill Utility Worker Name Role Phone Michelle Nino Primary Care Provider Encounter Details Date Type Department Care Team (Latest Contact Info) Description 05/09/2025 Travel Social History Tobacco Use Types Packs/Day Years [...] things needed for daily living? No 04/24/2023 [place] Depression Scale Answer Date Recorded [place] Depression Scale Total 0 05/10/2025 The thought [...] and heating? Not hard at all 05/10/2025 [facility] of Occupat ional Health - Occupational Stress [...] things needed for daily living? No 05/10/2025 [facility] Utilities Answer Date Recorded In the past [...] GED or equivalent No 05/10/2025 Preferred Language Citizen Of [place] 05/10/2025 PHQ-2 Answer Date Recorded Patient Health Questionnaire-2 Score 0 05/10/2025 Comments Yes Sex and Gender Information Value Date Recorded Sex Assigned at Not on file Legal Sex Female 4:39 PM EDT Gender Identity Not on file Sexual Orientation Not on file documented as of this encounter Functional Status * Question Answer Date of Assessment Author 1. Wish to be (Past 1 Month) No 05/09/2025 10:42 PM EDT Lina Alaniz RN 2. Non-Specific Active Suicidal Thoughts (Past 1 Month) No 05/09/2025 10:42 PM EDT Lina Alaniz RN * Calculated C-SSRS Risk Score (Lifetime/Recent) Answer Date of Assessment Author No Risk Indicated 05/09/2025 10:42 PM EDT Tisha Alaniz RN * [place] Suicide Severity Rating Scale (Screener/Recent Self-Report) Question Answer Date of Assessment Author 6. Suicidal Behavior (Lifetime) No 05/09/2025 10:42 PM EDT Lina Alaniz RN documented as of this encounter Plan of Treatment Not on file documented as of this encounter Visit Diagnoses Not on filedocumented in this encounter Care Teams Woolen Mill Utility Worker Relationship Specialty Start Date End Date Michelle Nino PA [address] [place] [address] [facility] [address] [place] [address] PCP - General Physician Word Processing Machine Operator 03/09/21 documented as of this encounter
--- OUTSIDE RECORDS SUMMARY | 2025-05-28 01:26 | XMS_ITS | Encounter Summary ---
Author Organization [facility] Address [address] [place] [address] Care Team Providers Care Historiography Teacher Name Role Phone Michelle Nino Primary Care Provider [phone] Encounter Details Date Type Department Care Team (Late st Contact Info) Description 05/09/2025 Prep for Surgery [facility] ORDERS ONLY [address] [place] [address] Carlota Buchanan MD [address] [facility] [address] [place] [address] 39 weeks gestation of (Primary Dx) Social History Tobacco Use Types Packs/Day Years [...] things needed for daily living? No 04/24/2023 [place] Depression Scale Answer Date Recorded [place] Depression Scale Total 0 05/10/2025 The thought [...] and heating? Not hard at all 05/10/2025 [facility] of Occupat ional Health - Occupational Stress [...] things needed for daily living? No 05/10/2025 [facility] Utilities Answer Date Recorded In the [...] GED or equivalent No 05/10/2025 Preferred Language Panamanian 05/10/2025 PHQ-2 Answer Date Recorded Patient Health Questionnaire-2 Score 0 05/10/2025 Comments Yes Sex and Gender Information Value Date Recorded Sex Assigned at Not on file Legal Sex Female 4:39 PM EDT Gender Identity Not on file Sexual Orientation Not on file documented as of this encounter Plan of Treatment Not on file documented as of this encounter Visit Diagnoses Diagnosis 39 weeks gestation of - Primary documented in this encounter Care Teams Historiography Teacher Relationship Specialty Start Date End Date Michelle Nino PA [address] [place] [address] [facility] [address] PCP - General Physician Hand Sample Maker 03/09/21 documented as of this encounter
--- OUTSIDE RECORDS SUMMARY | 2025-05-28 01:26 | XMS_ITS | Encounter Summary ---
Author Organization [facility] Address [address] [place] [address] Care Team Providers Care Technical Manager Chemical Plant Name Role Phone Michelle Nino Primary Care Provider [phone] Encounter Details Date Type Department Care Team (Late st Contact Info) Description 05/13/2025 Maternal Screening [facility] [address] [place] [address] Rafia Hill, RN Social History Tobacco Use Types Packs/Day Years [...] things needed for daily living? No 04/24/2023 [place] Depression Scale Answer Date Recorded [place] Depression Scale Total 0 05/10/2025 The thought [...] and heating? Not hard at all 05/10/2025 [facility] [place] of Occupat ional Health - Occupational Stress [...] for daily living? No 05/10/2025 [facility] Utilities Answer Date Recorded In the past 12 months has e [employer], gas, oil, or water [employer] threatened to shut off services in your [...] equivalent No 05/10/2025 Preferred Language Citizen Of [place] 05/10/2025 PHQ-2 Answer Date Recorded Patient Health Questionnaire-2 Score 0 05/10/2025 Comments No Sex and Gender Information Value Date Recorded Sex Assigned at Not on file Legal Sex Female 4:39 PM EDT Gender Identity Not on file Sexual Orientation Not on file documented as of this encounter Miscellaneous Notes * Outreach Note - Rafia Hill RN - 05/13/2025 9:39 AM EDT Maternal Screening Survey Flowsheet Row Responses Eligibility Eligible Prep survey completed? Yes Facility patient discharged from? [facility] - Registered Nurse documented in this encounter Plan of Treatment Not on file documented as of this encounter Visit Diagnoses Not on filedocumented in this encounter Care Teams Technical Manager Chemical Plant Relationship Specialty Start Date End Date Michelle Nino PA [address] [facility] [address] [place] [address] PCP - General Physician Patient Services Manager 03/09/21 documented as of this encounter
--- OUTSIDE RECORDS SUMMARY | 2025-05-28 01:26 | XMS_ITS | Encounter Summary ---
Author Organization [facility] Address [address] [place] [address] Care Team Providers Care Endoscope Technician Name Role Phone Michelle Nino Primary Care Provider [phone] Encounter Details Date Type Department Care Team (Latest Contact Info) Description 04/27/2025 Travel Social History Tobacco Use Types Packs/Day Years Used Date Smoking Tobacco: Former Smokeless Tobacco: Never Comments: Socially Alcohol Use Standard Drinks/Week Comments Not Currently 0 (1 standard drink = 0.6 oz pur e alcohol) [facility] Utilities Answer Date Recorded In the past 12 months has [employer], gas, oil, or water company threatened [...] things needed for daily living? No 04/24/2023 [place] Depression Scale Answer Date Recorded [place] Depression Scale Total 0 04/25/2023 The thought of harming myself has occurred to me . Unrecognized value 04/25/2023 Abuse Screen Answer Date Recorded Feels Unsafe at Home or Work/School no 12/17/2024 Feels Threatened by Someone no 0 12/2024 Does Anyone Try to Keep You [...] GED or equivalent No 04/24/2023 Preferred Language Haitian 04/24/2023 PHQ-2 Answer Date Recorded Retired PHQ-9: [...] Month) No 025 10:06 AM EDT Sofya Mcduffie RN 2. Non-Specific Active Suici ned Thoughts (Past 1 Month) No 04/27/2025 10:06 AM EDT Tello cMduffie RN * Calculated C-SSRS Risk Score (Lifetime/Recent) Answer Date of Assessment Author No Risk Indicated 04/27/2025 10:06 AM EDT Sofya Mcduffie RN * [place] Suicide Severity Rating Scale (Screener/Recent Self-Report) Question Answer Date of Assessment Author 6. Suicidal Behavior (Lifetime) No 10:06 AM EDT Sofya Mcduffie RN documented as of this encounter Plan of Treatment Not on file documented as of this encounter Visit Diagnoses Not on filedocumented in this encounter Care Teams Endoscope Technician Relationship Specialty Start Date End Date Michelle Nino PA [address] [address] PCP - General Physician Executive Steward 03/09/21 documented as of this encounter
--- OUTSIDE RECORDS SUMMARY | 2025-05-28 01:26 | XMS_ITS | Encounter Summary ---
Author Organization [facility] Address [address] [place] [address] Care Team Providers Care Contracts Paralegal Name Role Phone Michelle Nino Primary Care Provider [phone] Encounter Details Date Type Department Care Team (Late st Contact Info) Description 05/23/2025 Maternal Screening [facility] [address] [place] [address] Mary Esparza, RN Social History Tobacco Use Types Packs/Day [...] things needed for daily living? No 04/24/2023 [place] Depression Scale Answer Date Recorded [place] Depression Scale Total 0 05/23/2025 The thought [...] and heating? Not hard at all 05/10/2025 [facility] - Occupational Stress Questionnaire Answer Date Recorded [...] the past 12 months has th e [employer], gas, oil, or water [employer] threatened to shut off services in your [...] GED or equivalent No 05/10/2025 Preferred Language Belarusian 05/10/2025 PHQ-2 Answer Date Recorded Patient Health Questionnaire-2 Score 0 05/10/2025 Comments No Sex and Gender Information Value Date Recorded Sex Assigned at Not on file Legal Sex Female 4:39 PM EDT Gender Identity Not on file Sexual Orientation Not on file documented as of this encounter Miscellaneous Notes * Outreach Note - Mary Esparza RN - 05/23/2025 12:03 PM EST Maternal Screening Survey Flowsheet Row [facility]es [facility] Yes Call start time 1203 Call end time 1210 I have been able to laugh and see the funny side of things. 0 I have looked forward with enjoyment to things. 0 I have blamed myself unnecessarily when things went wrong. 0 I have been anxious or worried for no good reason. 0 I have felt scared or panicky for no good reason. 0 Things have been getting on top of me. 0 I have been so unhappy that I have had difficulty sleeping. 0 I have felt sad or miserable. 0 I have been so unhappy that I have been crying. 0 The thought of harming myself has occurred to me. 0 [place] Depression Scale Total 0 Did any of your parents have problems with alcohol or drug use? No Do any of your peers have problems with alcohol or drug use? No Does your partner have problems with alcohol or drug use? No Before you were did you have problems with alcohol or drug use? (past) No In the past month, did you drink beer, wine, liquor or use any other drugs? () No Maternal Screening call completed Yes MARY Cantor - Registered Nurse documented in this encounter Plan of Treatment Not on file documented as of this encounter Visit Diagnoses Not on filedocumented in this encounter Care Teams Contracts Paralegal Relationship Specialty Start Date End Date Michelle Nino PA [address] [address] PCP - General Physician Glycerin Operator 03/09/21 documented as of this encounter
--- OUTSIDE RECORDS SUMMARY | 2025-05-28 01:26 | XMS_ITS | Patient Health Record ---
Author Organization [facility] Address [address] [place] [id number] Care Team Providers Care Cleaning Matron Name Role Phone Aden Rivera Primary Care Provider [phone] Pranav Diaz Unavailable [phone] Enedelia Duval Unavailable [phone] Allergies No Known Allergies Reason For Referral No Information Medications Medication SIG (Take, Route, Fr equency, Duration) Notes Start Date End Date Status FLUoxetine HCl 10 MG 1 capsule Orally On a day; Duration: 30 day(s) 02/20/2024 Active Immunizations Vaccine Route [...] Notes Problem Mixed anxiety and depressive disorder (680397330) Depression with anxiety (F41.8) Active confirmed Problem Flexural eczema (26846457) Flexural eczema (L20.82) Active confirmed Problem Acute cystitis (89435453) Acute cystitis with hematuria (N30.01) Active confirmed Problem Constipation (82817626) Constipation, unspecified constipation type (K59.00) Active confirmed Problem Iron deficiency anemia (42218284) Iron deficiency anemia, unspecified iron deficiency anemia type (D50.9) Active confirmed Problem Cryptic tonsil (364498726) Cryptic tonsil (J35.8) Active confirmed Problem Refractory migraine without aura (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) Intractable migraine without aura and without status migrainosus (G43.019) Active confirmed Problem Daytime somnolence (080228208656) Daytime somnolence (R40.0) Active confirmed Problem Abnormal uterine bleeding (67503093189295) Vaginal bleeding, abnormal (N93.9) Active confirmed Plan Of Treatment Pending Test Test Name Order Date H-Calprotectin, Fecal 02/20/2024 H-Lipase 02/20/2024 H-CMP 02/20/2024 H-Hepatitis Panel 02/20/2024 Insurance Providers Payer Name Payer Address Payer Phone Subscriber Number Group Number Insured Name Patient Relationship to Insured Coverage Start Date Coverage End Date [employer] [address] [place] [address] [phone] [id number] JOESPH SINGER Self - patient is the insured Medical (General) History Surgical History Surgery Date(Month/Year) Ovarian Cyst Removal- [facility] RT Oophorectomy - [facility] 06/2021
[2025-05-28] MEDS: IBUPROFEN 600 MG TABLET PO (02:08)
[2025-05-28] MEDS: ACETAMINOPHEN 500MG TAB 1000 MG PO (02:08)
[2025-05-28 02:16] LABS: Coronavirus 19, PCR Not Detected (NotDetected); Influenza A, PCR Not Detected (NotDetected); Influenza B, PCR Not Detected (NotDetected)
[2025-05-28 02:23] LABS: Hematocrit 37.5 % (37.0-47.0); Hemoglobin 11.9 g/dL (12.2-16.2); Immature Granulocytes % 0.3 %; Mean Corpuscular HGB Conc 31.7 g/dL (31.8-35.4); Mean Corpuscular Hemoglobin 26.7 pg (27.0-31.2); Mean Corpuscular Volume 84.3 fl (81-99); Nucleated Red Blood Cells % 0 %; Platelet Count 252 K/mm3 (142-424); Red Blood Count 4.45 M/mm3 (4.20-5.40); Red Cell Distribution Width-SD 43.9 fL; White Blood Count 11.7 K/mm3 (4.8-10.8)
[2025-05-28 02:29] LABS: Albumin Level 4.4 g/dl (3.5-5.0); Chloride 102 mmol/L (98-107); Potassium 4.0 mmoL/L (3.5-5.1); Sodium 137 mmol/L (136-145)
[2025-05-28 02:31] LABS: Blood Urea Nitrogen 8 mg/dl (7-17); Creatinine Clearance Estimated 108 mL/min (50-200); Creatinine,Serum 0.80 mg/dl (0.52-1.04); Estimated Glomerular Filt Rate 87 ml/min (>60); GFR (African American) 106 ML/MIN (>60)
[2025-05-28 02:32] LABS: Alanine Aminotransferase 24 U/L (12-78); Alkaline Phosphatase 135 U/L (38-126); Anion Gap 14.0 mEq/L (5-15); Aspartate Amino Transferase 28 U/L (14-36); Bilirubin,Total 1.1 mg/dl (0.2-1.3); Calcium 9.3 mg/dl (8.4-10.2); Carbon Dioxide 25 mmol/L (22.0-30.0); Glucose 122 mg/dl (74-100); Total Protein,Serum 7.9 g/dl (6.3-8.2)
[2025-05-28 02:33] LABS: Albumin/Globulin Ratio 1.3 (1.1-1.8); Globulin 3.5 g/dL (1.3-3.2)
[2025-05-28 02:54] LABS: Microscopic, Urine URINE MICROSCOPIC (MICROSCOPIC)
[2025-05-28 02:58] LABS: Bilirubin,Urine Negative (Negative); Color,Urine YELLOW (Yellow); Glucose,Urine (UA) Negative (Negative); Ketones,Urine Negative (Negative); Leukocyte Esterase,Urine TRACE (Negative); PH,Urine 6.5 (5.0-8.5); Protein,Urine Negative (Negative); Specific Gravity, Urine 1.025 (1.005-1.030); Urobilinogen,Urine 0.2 EU/dl (0.2)
[2025-05-28 03:02] LABS: RBC Morphology Normal; Total Cells Counted 100
[2025-05-28 03:09] LABS: Bacteria,Urine Trace /lpf; RBC,Urine Occasional #/hpf (0-3)
[2025-05-28] MEDS: LACTATED RINGERS 1000ML 1,000 ML 999 ML IV (03:16)
[2025-05-28 03:32] LABS: Adenovirus,PCR Not Detected (NotDetected); Chlamydophila Pneumoniae, PCR Not Detected (NotDetected); Coronavirus 19, PCR Not Detected (NotDetected); Coronovirus HKU1,PCR Not Detected (NotDetected); Influenza A, PCR Not Detected (NotDetected); Influenza AH1, 2009 Not Detected (NotDetected); Influenza AH1, PCR Not Detected (NotDetected); Influenza AH3,PCR Not Detected (NotDetected); Influenza B, PCR Not Detected (NotDetected); Mycoplasma Pneumoniae, PCR Not Detected (NotDetected); Parainfluenza 1, PCR Not Detected (NotDetected); Parainfluenza 2, PCR Not Detected (NotDetected); Parainfluenza 3, PCR Not Detected (NotDetected); Parainfluenza 4, PCR Not Detected (NotDetected)
--- NOTE | 2025-05-28 03:42 | ED_ITS ---
Discharge Plan Disposition Patient Disposition: Admitted Condition: Fair Prescriptions Prescriptions: No Action fluoxetine [Prozac] 20 mg capsule 20 mg PO DAILY Qty: 30 2RF Clinical Impressions Clinical Impression: fever, Tachycardia Print Language Print Language: Nepalese Discharge ED Provider: Radha Hall General Adult HPI General Chief complaint: Fever Stated complaint: 2.5 wks post-, fever 102.4, blurred vision Time Seen by Provider: 05/28/25 01:58 Mode of Arrival: Ambulatory Source of Information: Patient Description of Symptoms (Recalled from ER Triage Doc. by RN): Pt is 2 weeks post , states she has been running a fever at home 102.4, did not take any Tylenol. Here she is 99.9. Complains of left ear pain /. Is currently and wanted to get checked out. History of Present Illness HPI narrative: 24-year-old female who is otherwise healthy G4, P3 2-1/2 weeks after vaginal delivery presents to the ER with fever of 102.4. She also reports left ear pain. She denies any cough or congestion, no sore throat or runny nose. No nausea, vomiting, or diarrhea. Denies any abdominal pain or abnormal vaginal discharge. No chest pain or difficulty breathing. No dysuria or hematuria. Patient states her OB care was done at [facility] by Dr. Olsen and Dr. Hamilton delivered her baby. She states she had no complications during except for having to be treated for BV twice and having a positive Ureaplasma. Patient reports taking no medications for fever prior to arrival. She states she has no pain or swelling in the breasts though she is breast-feeding. Denies any other complaints or concerns. Related Data Previous Rx's ?Medication ?Instructions ?Recorded fluoxetine 20 mg capsule (Prozac) 20 mg PO DAILY #30 c aps 02/18/25 Allergies Allergy/AdvReac Type Severity Reaction Status Date / Time butorphanol (From Stadol) Allergy shortness Verified 02/18/25 11:40 of breath [facility] Disclaimer: The information contained in this section may have been updated after the patient was seen, as this information can be updated by other users. Medical History Diarrhea Major depressive disorder Surgical History History of right oophorectomy Family History Grandmother Cancer Stroke Grandfather Cancer Stroke Father Hypertension Diabetes Social History Smoking Status: Never smoker second hand exposure: No alcohol intake: current alcohol intake frequency: holidays/special occasions only counseling given: No (no drinking right now; cause she is ) substance use type: denies use counseling given: No current occupational status: employed Travel in the last 8 weeks?: None adopted: No caregiver/support person: Yes (for her 19 month old son) foster care: No household members: spouse, family and children housing: house lives independently: Yes marital status: number of children: 1 number of grandchildren: 0 education level: high school 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[employer]; 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 Hx Recent Travel: No sexually active: Yes are you practicing safe sex: Yes caffeine: Yes physical activity: none austin/congregational: None special austin needs: No working smoke detector in home: Yes fire extinguisher in home: No carbon monox detector in home: No firearms in home: Yes firearms unloaded and locked: Yes do you feel safe at home: Yes victim of physical abuse: No victim of emotional abuse: No victim of sexual abuse: No would you like helpful sources: No Have you lived/traveled outside [place] in past 30 days?: No Contact w/someone who lives/traveled outside [place] past 30 days?: No Exposure to someone with infectious disease in past 14 days?: No Do you have a fever (greater than 100.4 F or 38 C)?: Yes Have you tested positive for COVID-19?: No Exposed to someone with COVID-19 in past 14 days?: No Do you have a sore throat?: No Do you have a cough?: No Do you have any weakness?: No Do you have any diarrhea?: No Are you experiencing any unusual bleeding?: No Do you have any muscle aches/pain?: No Do you have any abdominal pain?: No Are you experiencing loss of taste or smell?: No Other Medical History Have you received the Flu Vaccine for this season: No Have you received the Pneumonia Vaccine: No ROS Obtained: Yes Systems reviewed as appropriate & no additional complaints except as documented Per HPI Physical Exam General General appearance: alert and in no apparent distress Head Head exam: atraumatic and normocephalic Eye Eye exam: Present PERRL and EOMI; Absent jaundice, conjunctival injection or discharge ENT ENT exam: Present normal oropharynx, mucous membranes moist and other (Left TM slightly erythematous but no bulging, no purulent effusion, right TM normal) Neck Neck exam: Present normal inspection and full ROM; Absent tenderness, meningismus or lymphadenopathy Chest Chest inspection: Present symmetric chest wall rise Respiratory Respiratory exam: Present normal lung sounds bilaterally; Absent respiratory distress, wheezes or stridor Cardiovascular Cardiovascular exam: Present normal rhythm and tachycardia Abdominal Exam Abdominal exam: Present soft; Absent distention, tenderness, guarding or rebound Comment: Benign abdominal exam External exam: Present normal external exam Extremities Exam Extremities exam: Present full ROM and normal capillary refill; Absent edema Neurological Exam Neurological exam: Present alert and oriented X3; Absent motor sensory deficit Psychiatric Psychiatric exam: Present normal affect and normal mood Skin Skin exam: Present warm and dry Medical Decision Making Medical Records Medical records reviewed: Yes I reviewed the patient's medical records. Screening: Per USPSTF and CDC recommendations, given the prevalence of disease in our region, it is our hospital?s policy to screen for HIV and viral Hepatitis for all patients aged 18 and over and those with ongoing risk factors. MR Comment: No OB records here, most recent note in our system appears to be from behavioral health in February 2025 when patient was followed up for depression noting that she has been improved since taking Prozac. Bernardo Inquiry Pt receiving controlled substance: No Vital Signs: 05/28/25 01:30 05/28/25 01:30 05/28/25 01:42 Temperature 99.9 F H Temperature Source Oral Oral Pulse Rate 120 H Pulse Rate [Left] 120 H Respiratory Rate 16 Blood Pressure 146/85 H Blood Pressure [Right Arm] 137/84 Blood Pressure Mean [Right Arm] 101 Blood Pressure Source Blood Pressure Source [Right Arm] Automatic Cuff Blood Pressure Position Blood Pressure Position [Right Arm] Sitting 02 Sat by Pulse Oximetry 96 98 Oxygen Delivery Method Room Air 05/28/25 02:00 05/28/25 02:06 05/28/25 02:51 Temperature Temperature Source Pulse Rate 127 H 123 H 130 H Pulse Rate [Left] Respiratory Rate Blood Pressure 139/90 126/80 114/75 Blood Pressure [Right Arm] Blood Pressure Mean [Right Arm] Blood Pressure Source Blood Pressure Source [Right Arm] Blood Pressure Position Blood Pressure Position [Right Arm] 02 Sat by Pulse Oximetry 97 96 97 Oxygen Delivery Method 05/28/25 03:00 05/28/25 03:18 Temperature 98.8 F Temperature Source Oral Pulse Rate 128 H 107 H Pulse Rate [Left] Respiratory Rate 17 Blood Pressure 108/72 L 108/72 L Blood Pressure [Right Arm] Blood Pressure Mean [Right Arm] Blood Pressure Source Automatic Cuff Blood Pressure Source [Right Arm] Blood Pressure Position Sitting Blood Pressure Position [Right Arm] 02 Sat by Pulse Oximetry 97 97 Oxygen Delivery Method Room Air Lab Data Lab Results 05/28/25 02:05: SARS-CoV-2 (PCR) Not detected, Influenza A Untype (PCR) Not detected, Influenza Type B (PCR) Not detected 05/28/25 02:15: WBC 11.7 H, RBC 4.45, Hgb 11.9 L, Hct 37.5, MCV 84.3, MCH 26.7 L , MCHC 31.7 L, RDW 14.5, Plt Count 252, MPV 10.6 H, Neut % (Auto) 91.7 H, Lymph % (Auto) 3.2 L, [place] % (Auto) 4.5, Eos % (Auto) 0.1, Baso % (Auto) 0.2, Neut # (Auto) 10.7 H, Lymph # (Auto) 0.4 L, [place] # (Auto) 0.5, Eos # (Auto) 0.0, Baso # (Auto) 0.0, Total Counted 100, Neutrophils % (Manual) 89 H, Lymphocytes % (Manual) 6 L, Monocytes % (Manual) 5, Platelet Estimate Normal, RBC Morphology Normal, Sodium 137, Potassium 4.0, Chloride 102, Carbon Dioxide 25, Anion Gap 14.0, BUN 8, Creatinine 0.80, Estimated Creat Clear 108, Estimated GFR 87, Est GFR ( Amer) 106, Glucose 122 H, Calcium 9.3, Total Bilirubin 1.1, AST 28, ALT 24, Alkaline Phosphatase 135 H, Total Protein 7.9, Albumin 4.4, Globulin 3.5 H, Albumin/Globulin Ratio 1.3 05/28/25 02:51: Urine Color Yellow, Urine Appearance Clear, Urine pH 6.5, Ur Specific [place] 1.025, Urine Protein Negative, Urine Glucose (UA) Negative, Urine Ketones Negative, Urine Blood Negative, Urine Nitrate Negative, Urine Bilirubin Negative, Urine Urobilinogen 0.2, Ur Leukocyte Esterase Trace, Urine RBC Occasional, Urine WBC None, Ur Squamous Epith Cells None, Urine Bacteria Trace 05/28/25 02:15 05/28/25 02:15 Orders (Tests/Meds): ED MEDICATIONS Generic Name Dose Route Start Last Admin Trade Name Freq PRN Reason Stop Dose Admin Lactated Ringer's 1,000 mls @ 999 mls/hr 05/28/25 03:13 05/28/25 03:16 Lactated Ringer's 1000 Ml Bag IV 05/28/25 04:13 999 mls/hr .Q1H1M ONE Administration Piperacillin Sod/Tazobactam 50 mls @ 100 mls/hr 05/28/25 03:23 Sod 3.375 gm/ Sodium Chloride IV 05/28/25 03:52 ONCE ONE Discontinued Medications Generic Name Dose Route Start Last Admin Trade Name Freq PRN Reason Stop Dose Admin Acetaminophen 1,000 mg 05/28/25 02:03 05/28/25 02:08 Acetaminophen 500mg Tab PO 05/28/25 02:04 1,000 mg ONCE ONE Administration Ibuprofen 600 mg 05/28/25 02:03 05/28/25 02:08 Ibuprofen 600 Mg Tablet PO 05/28/25 02:04 600 mg ONCE ONE Administration ORDERS Category Date Time Status Bacterial vaginosis/Aimee Stat Lab 05/28/25 03:29 Ordered CBC w/Auto Diff [Complete Blood Count Auto Diff] Stat Lab 05/28/25 02:15 Completed CMP [Comprehensive Metabolic Panel] Stat Lab 05/28/25 02:15 Completed Full Resp Panel w/COVID ([facility]) Routine Lab 05/28/25 02:07 Received Rapid PCR Covid and Flu A/B Stat Lab 05/28/25 02:05 Completed Urinalysis and Microscopic Stat Lab 05/28/25 02:51 Completed Urine Chlam/Gono/Trich ([facility]) Stat Lab 05/28/25 02:51 Received Vaginitis Plus/HSV Stat Lab 05/28/25 03:22 Ordered Blood Culture Stat Micro 05/28/25 03:28 Ordered Medical Decision Narrative: In summary, this 24-year-old female with history of depression, 2-1/2 weeks presents to the emergency department today with fever, left ear pain. On initial evaluation patient is tachycardic, her initial blood pressure in the ER was elevated, she reports no history of hypertension during and no preeclampsia. She denies headache, dizziness, abdominal pain, vision changes, or any other associated symptoms. I removed her arm from the sweatshirt she was wearing and retook her blood pressure which was not hypertensive, it was in the 120s. She has a benign cardiopulmonary exam, mildly erythematous left TM but no bulging or purulent effusion. Normal oropharynx, no lymphadenopathy, abdominal exam is completely benign with no tenderness. No chest tenderness or erythema. Differential diagnosis includes but is not limited to viral syndrome, I had considered otitis media but appreciate no evidence of this clinically, I also considered urinary tract infection. With patient having a hypertensive blood pressure reading here, I we will pursue labs to rule out preeclampsia though I have low suspicion for this since she is not having clinical symptoms of it. I considered mastitis but without breast tenderness, redness, or pain I do not suspect this. I also considered endometritis but patient has no abdominal pain or tenderness which is reassuring against this. Based on these concerns, I ordered basic hematologic and serum labs, urinalysis, viral swab. Patient received Tylenol and ibuprofen for treatment. She is tolerating oral intake and has drank over 16 ounces of water in the ER. Labs personally reviewed demonstrate leukocytosis WBC 11.7, mild anemia hemoglobin 11.9 is nonactionable at this time, normal platelets, CMP nonactionable, notably patient has no kidney dysfunction, creatinine 0.8, alkaline phosphatase is slightly elevated but not more than double the upper limit of normal so does not meet criteria to be concerned for preeclampsia. UA negative for findings of infection, no proteinuria. COVID and flu negative. On reassessment patient's temperature has improved from 99.9-98.8 but she remains tachycardic with heart rate in the 120s to 130s. This is concerning me that there may be an underlying infection elsewhere that has not been identified. I performed my exam again and do not appreciate any new abnormalities or other concerning findings. I did add on a full respiratory panel in case she is starting to show symptoms of a very early respiratory virus. Patient reports that when she used the restroom to provide the urine sample she noted yellow, malodorous vaginal discharge. She states this is the first time this has happened and she had not had previously. With this, I am more concerned for a vaginal or uterine infection though she has no abdominal tenderness. Before collecting swabs or performing additional workup I reached out to OB on-call and spoke with Dr. Paula about this case. She agrees that the persistent tachycardia without anemia, evidence of hypovolemia, or source of infection is concerning especially since our previous records for this patient never demonstrate her being tachycardic. She recommended collecting vaginal swabs including the vaginitis plus/HSV swab and starting the patient on Zosyn empirically and admitting to OB. She recommends not doing a speculum exam to not cause discomfort and states the vaginal swabs should be adequate. She reports she will come see the patient during the day. I appreciate her recommendations. I added on BV and vaginitis swabs as well as urine gonorrhea/chlamydia/trichomonas testing. I collected vaginal swabs. External exam is unremarkable and I do not appreciate any obvious malodorous or copious discharge. No lesions. Zosyn has been ordered. IV fluids have been started as well. Patient is agreeable to admission. She will continue getting maintenance fluids and IV antibiotics have been administered. Blood cultures were also collected before antibiotics were started. With IV fluids her heart rate is improving some, she still remains mildly tachycardic with heart rate in the low 100s to 110s. Patient was admitted to the OB floor in stable condition. Critical Care Critical Care Time Critical Care Time: No
[2025-05-28] MEDS: PIPERACILLIN/TAZO 3.375 GM in 0.9 % SODIUM CHLORIDE 50 ML IV (04:00)
--- NOTE | 2025-05-28 04:53 | PC.NURSE ---
0415 - report received from ALBINO Davenport in ER.
--- NOTE | 2025-05-28 04:54 | PC.NURSE ---
0425 - Pt arrived to OB unit at this time.
--- NOTE | 2025-05-28 07:10 | PC.NURSE ---
Report received from Rocky Mak RN
--- NOTE | 2025-05-28 07:10 | PC.NURSE ---
Report given to Melissa Alberts RN
[2025-05-28 08:33] LABS: Hematocrit 32.9 % (37.0-47.0); Immature Granulocytes % 0.4 %; Mean Corpuscular HGB Conc 32.2 g/dL (31.8-35.4); Mean Corpuscular Hemoglobin 27.0 pg (27.0-31.2); Mean Corpuscular Volume 83.7 fl (81-99); Nucleated Red Blood Cells % 0 %; Platelet Count 213 K/mm3 (142-424); Red Blood Count 3.93 M/mm3 (4.20-5.40); Red Cell Distribution Width-SD 44.1 fL; White Blood Count 13.7 K/mm3 (4.8-10.8)
[2025-05-28 08:43] LABS: Hemoglobin 10.4 g/dL (12.2-16.2)
--- NOTE | 2025-05-28 10:42 | PC.NURSE ---
Dr. Paula rounding on patient at this time
--- NOTE | 2025-05-28 11:08 | EXP.HP ---
History of Present Illness *Admission Date: 05/28/25 *Reason for visit:: Fever, dizziness/lightheadedness, increased heart rate *History of present illness: Ms Shayna Felder is a 24 yo P3013, 2 weeks 3 days s/p vaginal delivery at [facility], who presented to [facility] ED with complaint of lightheadedness/dizziness and fever of 102.4 F at home. She states she felt well all day yesterday and then symptoms started last night. She also complained of left ear pain/ache. On initial ED evaluation she was tachycardic with HR in the 120's. She received Tylenol and Ibuprofen as well as PO fluids. Temperature was normal after medication but HR remained elevated between 120-130. CMP within normal limits. CBC demonstrated leukocytosis of 11.7. Patient also reported yellowish malodorous discharge. She denied abdominal pain. Respiratory panel was negative. Vaginal swab for GC/Chlamydia and trichomonas was negative. Blood cultures pending. IV fluids were started and she received Zosyn x 1 dose in the ED. Otitis media was ruled out by ED physician. Urinalysis was also negative. Shayna reports normal vaginal delivery at 38w3d at [facility]. She delivered a live male baby, Su. She was in active labor and her OB had to rupture membranes. She states she had retained placenta for about 1 hour after delivery. The placenta appeared torn but her doctor believed all was delivered. Placenta was sent to pathology per patient. She has not heard results. History of vaginal delivery x 3 and SAB x 1 that did not require D&C. She admits she was able to rest overnight. She is still having malodorous yellow/enrique discharge. Denies fever/chills since admission. No chest pain or shortness of breath. She is breast feeding. [facility] Disclaimer: The information contained in this section may have been updated after the patient was seen, as this information can be updated by other users. Medical History (Updated 05/28/25 @ 11:24 by Mary Paula DO) Leukocytosis endometritis Diarrhea Major depressive disorder Surgical History History of right oophorectomy Family History Grandmother Cancer Stroke Grandfather Cancer Stroke Father Hypertension Diabetes Social History (Updated 05/28/25 @ 09:50 by Patti Alberts RN) Smoking Status: Never smoker second hand exposure: No alcohol intake: current alcohol intake frequency: holidays/special occasions only counseling given: No (no drinking right now; cause she is ) substance use type: denies use counseling given: No current occupational status: employed Travel in the last 8 weeks?: None adopted: No caregiver/support person: Yes (for her 19 month old son) foster care: No household members: spouse, family and children housing: house lives independently: Yes marital status: number of children: 1 number of grandchildren: 0 education level: high school 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[employer]; 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 Hx Recent Travel: No sexually active: Yes are you practicing safe sex: Yes caffeine: Yes physical activity: none austin/christianity: None special austin needs: No working smoke detector in home: Yes fire extinguisher in home: No carbon monox detector in home: No firearms in home: Yes firearms unloaded and locked: Yes do you feel safe at home: Yes victim of physical abuse: No victim of emotional abuse: No victim of sexual abuse: No would you like helpful sources: No Have you lived/traveled outside [place] in past 30 days?: No Contact w/someone who lives/traveled outside US past 30 days?: No Exposure to someone with infectious disease in past 14 days?: No Do you have a fever (greater than 100.4 F or 38 C)?: No Have you tested positive for COVID-19?: No Exposed to someone with COVID-19 in past 14 days?: No Do you have a sore throat?: No Do you have a cough?: No Do you have any weakness?: No Do you have any diarrhea?: No Are you experiencing any unusual bleeding?: No Do you have any muscle aches/pain?: No Do you have any abdominal pain?: No Are you experiencing loss of taste or smell?: No Other Medical History Have you received the Flu Vaccine for this season: Yes Have you received the Pneumonia Vaccine: No Review of Systems Constitutional Constitutional: Reports as per HPI ENT Ears, Nose, Mouth, and Throat: Reports as per HPI *Cardiovascular Cardiovascular: Denies chest pain, Denies dyspnea and Denies leg edema *Respiratory Respiratory: Denies dyspnea *Gastrointestinal Gastrointestinal: Denies abdominal pain, Denies change in bowel habits, Denies nausea and Denies vomiting *Genitourinary Genitourinary: Reports vaginal discharge, Reports vaginal odor and Denies vaginal pruritus *Musculoskeletal Musculoskeletal: Denies arthralgias, Denies muscle weakness and Denies myalgias Integumentary/Breasts Skin/Breast: Denies breast mass, Denies breast pain and Denies breast skin changes Psychiatric Psychiatric: Denies anxiety and Denies depression Meds Home Medications and Allergies Home Medications ?Medication ?Instructions ?Recorded ?Confirmed ?Type fluoxetine 20 mg capsule (Prozac) 20 mg PO DAILY #30 caps 02/18/25 05/28/25 Rx New Prescriptions to Start Prescriptions: Allergies Allergy/AdvReac Type Severity Reaction Status Date / Time butorphanol (From Stadol) Allergy shortness Verified 02/18/25 11:40 of breath Exam Data for Last 24 hours Vital signs and Labs for Last 24 Hours: Temp Pulse Resp BP Pulse Ox O2 Del Method 97.4 F L 58 L 12 100/64 L 98 Room Air 05/28/25 07:30 05/28/25 07:30 05/28/25 07:30 05/28/25 07:30 05/28/25 09:45 05/28/25 09:50 Laboratory Results - last 24 hr 05/28/25 02:05: SARS-CoV-2 (PCR) Not detected, Influenza A Untype (PCR) Not detected, Influenza Type B (PCR) Not detected 05/28/25 02:07: Chlamy pneumoniae PCR Not detected, Adenovirus (PCR) Not detected, B. pertussis DNA (PCR) Not detected, Coronavirus OC43 (PCR) Not detected, Coronavirus HKU1 (PCR) Not detected, Coronavirus 229E (PCR) Not detected, SARS-CoV-2 (PCR) Not detected, Coronavirus NL63 (PCR) Not detected, Human Metapneumovir PCR Not detected, Influenza A (H1) PCR Not detected, Influ A (H1N1/09) PCR Not detected, Influenza A (H3) PCR Not detected, Influenza Type A (PCR) Not detected, Influenza Type B (PCR) Not detected, M. pneumoniae (PCR) Not detected, Parainfluenza 1 (PCR) Not detected, Parainfluenza 2 (PCR) Not detected, Parainfluenza 3 (PCR) Not detected, Parainfluenza 4 (PCR) Not detected, RSV (PCR) Not detected, Entero/Rhino (PCR) Not detected 05/28/25 02:15: WBC 11.7 H, RBC 4.45, Hgb 11.9 L, Hct 37.5, MCV 84.3, MCH 26.7 L, MCHC 31.7 L, RDW 14.5, Plt Count 252, MPV 10.6 H, Neut % (Auto) 91.7 H, Lymph % (Auto) 3.2 L, Ritchie % (Auto) 4.5, Eos % (Auto) 0.1, Baso % (Auto) 0.2, Neut # (Auto) 10.7 H, Lymph # (Auto) 0.4 L, Ritchie # (Auto) 0.5, Eos # (Auto) 0.0, Baso # (Auto) 0.0, Total Counted 100, Neutrophils % (Manual) 89 H, Lymphocytes % (Manual) 6 L, Monocytes % (Manual) 5, Platelet Estimate Normal, RBC Morphology Normal, Sodium 137, Potassium 4.0, Chloride 102, Carbon Dioxide 25, Anion Gap 14.0, BUN 8, Creatinine 0.80, Estimated Creat Clear 108, Estimated GFR 87, Est GFR ( Amer) 106, Glucose 122 H, Calcium 9.3, Total Bilirubin 1.1, AST 28, ALT 24, Alkaline Phosphatase 135 H, Total Protein 7.9, Albumin 4.4, Globulin 3.5 H, Albumin/Globulin Ratio 1.3 05/28/25 02:51: Urine Color Yellow, Urine Appearance Clear, Urine pH 6.5, Ur Specific [place] 1.025, Urine Protein Negative, Urine Glucose (UA) Negative, Urine Ketones Negative, Urine Blood Negative, Urine Nitrate Negative, Urine Bilirubin Negative, Urine Urobilinogen 0.2, Ur Leukocyte Esterase Trace, Urine RBC Occasional, Urine WBC None, Ur Squamous Epith Cells None, Urine Bacteria Trace, Ur C. trach DNA (PCR) Negative, U N.gonorrhoeae DNA PCR Negative, T. vaginalis (PCR) Negative 05/28/25 08:15: WBC 13.7 H, RBC 3.93 L, Hgb 10.4 L D, Hct 32.9 L, MCV 83.7, MCH 27.0, MCHC 32.2, RDW 14.5, Plt Count 213, MPV 10.4, Neut % (Auto) 85.3 H, Lymph % (Auto) 7.2 L, Ritchie % (Auto) 6.8, Eos % (Auto) 0.1, Baso % (Auto) 0.2, Neut # (Auto) 11.7 H, Lymph # (Auto) 1.0, Ritchie # (Auto) 0.9, Eos # (Auto) 0.0, Baso # (Auto) 0.0 I & O for Last 24 hours: Intake & Output 05/25/25 05/26/25 05/27/25 05/28/25 23:59 23:59 23:59 23:59 Output Total 0 / 0 Balance 0 / 0 Weight 140 lb Constitutional Constitutional: no acute distress and cooperative *Routine HEENT Exam Head: Present normocephalic and atraumatic Eye: Absent conjunctivae pink ENT: Present mucous membranes moist *Routine Neck Exam Neck: Present full ROM *Routine Respiratory Exam Respiratory: Present CTA bilaterally and normal respiratory effort *Routine Cardiovascular Exam Cardiovascular: Present RRR *Routine Abdominal Exam Abdominal: Present soft and tenderness (mild suprapubic tenderness to palpation); Absent distended, guarding or mass *Routine Rectal Exam Rectal:: deferred *Routine Genitalia Exam Genitalia:: deferred *Routine Extremities Exam Extremities: Present full ROM; Absent edema or calf tenderness *Routine Neurological Exam Neurological: Present alert, moving all extremities and normal speech Routine Psychiatric Exam Psychiatric: Present normal affect and cooperative Assessment and Plan *Assessment and plan (1) endometritis: Status: Acute Category: Medical Code(s): O86.12 - Endometritis following delivery (2) Tachycardia: Status: Acute Category: Medical Code(s): R00.0 - Tachycardia, unspecified (3) fever: Status: Acute Category: Medical Code(s): O86.4 - Pyrexia of unknown origin following delivery (4) Leukocytosis: Status: Acute Qualifiers: Leukocytosis type: unspecified Qualified Code(s): D72.829 - Elevated white blood cell count, unspecified Category: Medical Code(s): D72.829 - Elevated white blood cell count, unspecified Plan Discussed possible endometritis. She reports foul smell vaginally with yellow discharge that she does not remember being present after delivery of her other two children. Differential diagnosis also includes viral infection. She has been afebrile since admission. She reported temperature of 102.4 at home around 2200 last night WBC has increased from 11.7 to 13.7. She received Zosyn x 1 dose in the ED Start Unasyn 3 gram q 6 hours for endometritits Repeat CBC in the AM Discussed monitoring for at least 24 hours to see if she remains afebrile without medication. If she remains afebrile and WBC is stable or trending down will consider discharge home tomorrow with PO antibiotics and close follow-up with OB next week. She agrees with plan. Regular diet SCDs for DVT prophylaxis Okay for another adult to bring her baby so she can breast feed and spend time with him Continue home fluoxetine 20 mg PO daily Close monitoring
[2025-05-28] MEDS: AMPICILLIN/SULBACTAM 3 GM in 0.9 % SODIUM CHLORIDE 100 ML IV ×3 (13:06→23:12)
--- NOTE | 2025-05-28 17:15 | PC.NURSE ---
Pt sitting up in bed. Lungs sound clear bilaterally throughout. Bowel sounds active in all quadrants. S1 S2 present. V/s stable this shift. Pt has ambulated independently to bathroom multiple times. Mom present during assessment. Pt has pumped multiple times today. Denies breast tenderness and pain. Pt remained afebrile all shift,. Pt denies needs at this time, call light in reach.
--- NOTE | 2025-05-28 19:00 | PC.NURSE ---
all care from Martha Patino student RN freight checker done under my supervision.
--- NOTE | 2025-05-28 19:06 | PC.NURSE ---
report given to Rocky Mak RN
--- NOTE | 2025-05-28 19:46 | PC.NURSE ---
1899 - report received from Melissa Alberts RN
[2025-05-28] MEDS: FLUOXETINE 20MG CAPSULE 20 MG PO (21:02)
[2025-05-29 04:05] VITALS: BP 108/64; PULSE 80; RESP 18; TEMP 36.8; O2SAT 96
[2025-05-29] MEDS: AMPICILLIN/SULBACTAM 3 GM in 0.9 % SODIUM CHLORIDE 100 ML IV (05:51)
--- NOTE | 2025-05-29 07:04 | PC.NURSE ---
report given to Melissa Alberts RN
[2025-05-29 08:27] LABS: Hematocrit 31.4 % (37.0-47.0); Hemoglobin 9.7 g/dL (12.2-16.2); Immature Granulocytes % 0.4 %; Mean Corpuscular HGB Conc 30.9 g/dL (31.8-35.4); Mean Corpuscular Hemoglobin 26.3 pg (27.0-31.2); Mean Corpuscular Volume 85.1 fl (81-99); Nucleated Red Blood Cells % 0 %; Platelet Count 200 K/mm3 (142-424); Red Blood Count 3.69 M/mm3 (4.20-5.40); Red Cell Distribution Width-SD 45.8 fL; White Blood Count 7.9 K/mm3 (4.8-10.8)
[2025-05-29 08:44] VITALS: BP 108/62; PULSE 84; RESP 14; TEMP 36.6; O2SAT 96
[2025-05-29 09:34] VITALS: O2SAT 96
--- NOTE | 2025-05-29 09:48 | HMH.PHAAMS2 ---
- Antimicrobial Stewardship Review culture & sensitivity review Stewardship interventions: culture & sensitivity review (WBC DECREASED, BLOOD CX NEGATIVE.)
--- NOTE | 2025-05-29 11:29 | EXP.DC.SUM ---
General Admission date:: 05/28/25 Discharge date: 05/29/25 HPI HPI HPI: Shayna is resting comfortably this morning. She denies pain and admits vaginal enrique discharge has resolved. No fever/chills since admission. No complaints or concerns. Tolerating regular diet. Voiding without difficulty. No lower extremity edema. No calf pain. Hospital Course Hospital Course Hospital Course: Ms Shayna Felder is a 24 yo P3013, 2 weeks 3 days s/p vaginal delivery at [facility], who presented to [facility] ED with complaint of lightheadedness/dizziness and fever of 102.4 F at home. She states she felt well all day yesterday and then symptoms started last night. She also complained of left ear pain/ache. On initial ED evaluation she was tachycardic with HR in the 120's. She received Tylenol and Ibuprofen as well as PO fluids. Temperature was normal after medication but HR remained elevated between 120-130. CMP within normal limits. CBC demonstrated leukocytosis of 11.7. Patient also reported yellowish malodorous discharge. She denied abdominal pain. Respiratory panel was negative. Vaginal swab for GC/Chlamydia and trichomonas was negative. Blood cultures pending. IV fluids were started and she received Zosyn x 1 dose in the ED. Otitis media was ruled out by ED physician. Urinalysis was also negative. Shayna reports normal vaginal delivery at 38w3d at [facility]. She delivered a live male baby, Su. She was in active labor and her OB had to rupture membranes. She states she had retained placenta for about 1 hour after delivery. The placenta appeared torn but her doctor believed all was delivered. Placenta was sent to pathology per patient. She has not heard results. History of vaginal delivery x 3 and SAB x 1 that did not require D&C. She has been feeling well since admission. She denies pain and admits vaginal enrique discharge has resolved. No fever/chills since admission. No complaints or concerns. Tolerating regular diet. Voiding without difficulty. No lower extremity edema. No calf pain. No chest pain or shortness of breath. She is breast feeding. She received Unasyn 3 gram q 6 hrs x 4 doses. WBC on hospital day 1 was within normal limits, 7.9 (13.7 on 05/28/25 at 0815). Vital signs stable, afebrile. Abdomen soft, nondistended with mild suprapubic tenderness to palpation. Ambulating well ad skinny. She was discharged home on hospital day 1. Blood culture demonstrated no growth at 24 hours. AMB urinalysis was negative. Vaginal swab for GC/Chlamydia and trichomonas was negative. She was instructed to follow-up with her OB at [facility] this week. Exam Data for Last 24 hours Vital signs and Labs for Last 24 Hours: Temp Pulse Resp BP Pulse Ox O2 Del Method 97.9 F 84 14 108/62 L 96 Room Air 05/29/25 08:44 05/29/25 08:44 05/29/25 08:44 05/29/25 08:44 05/29/25 09:34 05/29/25 09:34 Laboratory Results - last 24 hr 05/29/25 08:05: WBC 7.9 D, RBC 3.69 L, Hgb 9.7 L, Hct 31.4 L, MCV 85.1, MCH 26.3 L, MCHC 30.9 L, RDW 14.8, Plt Count 200, MPV 10.6 H, Neut % (Auto) 72.7, Lymph % (Auto) 16.5, [place]ike % (Auto) 6.9, Eos % (Auto) 3.0, Baso % (Auto) 0.5, Neut # (Auto) 5.8, Lymph # (Auto) 1.3, Pike # (Auto) 0.6, Eos # (Auto) 0.2, Baso # (Auto) 0.0 I & O for Last 24 hours: Intake & Output 05/26/25 05/27/25 05/28/25 05/29/25 23:59 23:59 23:59 23:59 Intake Total 300 / 300 100 / 100 Output Total 0 / 0 0 / 0 Balance 300 / 300 100 / 100 Weight 140 lb Microbiology Reports for the Last 24 Hours: Microbiology 05/28/25 03:54 Blood Blood Culture - Preliminary NO GROWTH AFTER 24 HOURS 05/28/25 03:48 Blood Blood Culture - Preliminary NO GROWTH AFTER 24 HOURS Constitutional Constitutional: no acute distress and cooperative *Routine HEENT Exam Head: Present normocephalic and atraumatic Eye: Absent conjunctivae pink ENT: Present mucous membranes moist *Routine Neck Exam Neck: Present full ROM *Routine Respiratory Exam Respiratory: Present CTA bilaterally and normal respiratory effort *Routine Cardiovascular Exam Cardiovascular: Present RRR *Routine Abdominal Exam Abdominal: Present soft, normoactive bowel sounds and tenderness (mild suprapubic tenderness to palpation); Absent distended, rebound, guarding or mass *Routine Rectal Exam Patient deferred: visual exam *Routine Exam Patient deferred: external exam *Routine Extremities Exam Extremities: Present full ROM; Absent edema or calf tenderness *Routine Neurological Exam Neurological: Present alert, moving all extremities and normal speech Routine Psychiatric Exam Psychiatric: Present normal affect and cooperative Results Data Completed and Pending Labs on day of discharge: Labs from last 24 hours 05/29/25 08:05 WBC 7.9 D RBC 3.69 L Hgb 9.7 L Hct 31.4 L MCV 85.1 MCH 26.3 L MCHC 30.9 L RDW 14.8 Plt Count 200 MPV 10.6 H Neut % (Auto) 72.7 Lymph % (Auto) 16.5 Pike % (Auto) 6.9 Eos % (Auto) 3.0 Baso % (Auto) 0.5 Neut # (Auto) 5.8 Lymph # (Auto) 1.3 Pike # (Auto) 0.6 Eos # (Auto) 0.2 Baso # (Auto) 0.0 Preliminary micro results at discharge 05/28/25 03:54 Blood Culture - Preliminary Blood NO GROWTH AFTER 24 HOURS 05/28/25 03:48 Blood Culture - Preliminary Blood NO GROWTH AFTER 24 HOURS DS: Diagnosis Discharge Diagnosis (1) endometritis: Status: Acute Code(s): O86.12 - Endometritis following delivery (2) Tachycardia: Status: Acute Code(s): R00.0 - Tachycardia, unspecified (3) fever: Status: Acute Code(s): O86.4 - Pyrexia of unknown origin following delivery (4) Leukocytosis: Status: Acute Code(s): D72.829 - Elevated white blood cell count, unspecified Qualifiers: Leukocytosis type: unspecified Qualified Code(s): D72.829 - Elevated white blood cell count, unspecified Meds Home Medications and Allergies Home Medications ?Medication ?Instructions ?Recorded ?Confirmed ?Type fluoxetine 20 mg capsule (Prozac) 20 mg PO DAILY #30 caps 02/18/25 05/28/25 Rx New Prescriptions to Start Prescriptions: Allergies Allergy/AdvReac Type Severity Reaction Status Date / Time butorphanol (From Stadol) Allergy shortness Verified 02/18/25 11:40 of breath Discharge Plan Disposition Patient Disposition: Home, Self-Care Condition: Good Follow up Plan Prescriptions/Medication Reconciliation: Continued fluoxetine [Prozac] 20 mg capsule 20 mg PO DAILY Qty: 30 2RF Problem Reconciliation Problems Reviewed?: Yes Patient Discharge Instructions ACTIVITY: Limited activity DIET: continue same diet and regular diet Additional Instructions: Follow-up with your OB this week Print Language: Bulgarian Providers Primary Care Provider: Michelle Nino Admit Provider: Mary Paula Attending Provider: Mary Paula
--- NOTE | 2025-05-29 11:38 | PC.NURSE ---
Dr. Paula on unit rounding on pt at this time, new order for discharge received. order verified and read back.
[2025-05-31 12:46] LABS: Bacterial Vaginosis Associated 0
[2025-06-03 23:39] LABS: BVAB2 Low - 0 Score (.); Candida albicans NAA Negative (Negative); Candida glabrata Negative (Negative); HSV 1 NAA Negative (Negative); HSV 2 NAA Negative (Negative)
== END 2025-05-29 12:05 | disposition home or self-care (01) ==
LOC: ER 01:23 → OB 04:03
PROVIDERS: Admitting Provider Obstetrics & Gynecology; Emergency Provider Emergency Medicine; PCP Physician Assistant; Visit Provider Obstetrics & Gynecology
DX: O86.12 Endometritis following delivery (principal); O99.893 Other specified diseases and conditions complicating puerperium; R00.0 Tachycardia, unspecified; D72.829 Elevated white blood cell count, unspecified; Z79.899 Other long term (current) drug therapy; Z88.5 Allergy status to narcotic agent; Z90.721 Acquired absence of ovaries, unilateral
CPT/HCPCS: 0223U; 36415; 80053; 81001; 85007; 85025; 85027; 87040; 87491; 87529; 87591; 87636; 87661; 87798; 87801; 96365; 96366; 96375; 99285; G0378; J0295; J2543; J7120